=== PATIENT | female | born 1960 | race Caucasian/White ===

== ENCOUNTER → 2018-01-13 14:17 | Outpatient (CLI) | payer OTHER, SELFPAY ==
--- NOTE | 2018-01-13 14:19 | RAD_ITS ---
STUDY: X-RAY - RIGHT KNEE REASON FOR EXAM: Female, 57 years old. Arthritis TECHNIQUE: 3 view(s) of the knee. COMPARISON: None. FINDINGS: Normal visualized distal femur. Normal visualized proximal tibia and fibula. Normal proximal tibiofibular articulation. Normal medial femorotibial compartment. Normal lateral femorotibial compartment. Normal patellofemoral articulation. The soft tissue structures are unremarkable. RAD/Knee 3 Views IMPRESSION: Normal x-ray examination of the knee. Electronically Signed: Efe Hernandez MD at 16:51 EDT , Service support ,
--- NOTE | 2018-01-13 14:30 | RAD_ITS ---
STUDY: X-RAY - LEFT KNEE REASON FOR EXAM: Female, 57 years old. Arthritis TECHNIQUE: 3 view(s) of the knee. COMPARISON: None. FINDINGS: Normal visualized distal femur. Normal visualized proximal tibia and fibula. Normal proximal tibiofibular articulation. There is mild degenerative arthrosis of the medial femorotibial compartment. Normal lateral femorotibial compartment. Normal patellofemoral articulation. The soft tissue structures are unremarkable. RAD/Knee 3 Views IMPRESSION: There is mild degenerative arthrosis of the medial femorotibial compartment. Electronically Signed: Efe Hernandez MD at 16:51 EDT , Service support ,
== END ==
PROVIDERS: Family Provider Family Medicine; PCP Family Medicine; Visit Provider Family Medicine
DX: M25.561 Pain in right knee (principal); M25.562 Pain in left knee
CPT/HCPCS: 73562

== ENCOUNTER → 2018-01-21 09:07 | Outpatient (CLI) | payer OTHER, SELFPAY ==
--- NOTE | 2018-01-21 09:08 | RAD_ITS ---
STUDY: X-RAY - LEFT KNEE REASON FOR EXAM: Knee pain. TECHNIQUE: A single view of the knee. COMPARISON: Radiographs 01/13/2018. FINDINGS: There is congruence of the patellofemoral articulation without joint space narrowing on this sunrise view. Electronically Signed: Wagner Perkins MD at 16:15 EDT Tel , Service support , RAD/Knee 1 or 2 Views
--- NOTE | 2018-01-21 09:08 | RAD_ITS ---
STUDY: X-RAY - LEFT KNEE REASON FOR EXAM: Knee pain. TECHNIQUE: A single view of the knee. COMPARISON: Radiographs 01/13/2018. FINDINGS: There is congruence of the patellofemoral articulation without joint space narrowing on this sunrise view. Electronically Signed: Wagner Perkins MD at 16:15 EDT Tel , Service support , RAD/Knee 1 or 2 Views
== END ==
PROVIDERS: Family Provider Family Medicine; PCP Family Medicine; Visit Provider Orthopaedic Surgery
DX: M25.561 Pain in right knee (principal); M25.562 Pain in left knee
CPT/HCPCS: 73560

== ENCOUNTER 2018-03-17 08:13 | Outpatient (RCR) | payer OTHER, SELFPAY | END 2018-04-03 23:59 | LOC: NS 08:13 | PROVIDERS: Family Provider Family Medicine; PCP Family Medicine; Visit Provider Orthopaedic Surgery | DX: E66.01 Morbid (severe) obesity due to excess calories (principal); Z71.3 Dietary counseling and surveillance | CPT/HCPCS: 97802 ==

== ENCOUNTER 2018-05-28 08:25 | Outpatient (RCR) | payer OTHER, SELFPAY | END 2018-06-04 23:59 | LOC: NS 08:25 | PROVIDERS: Family Provider Family Medicine; PCP Family Medicine; Visit Provider Orthopaedic Surgery | DX: E66.01 Morbid (severe) obesity due to excess calories (principal); Z71.3 Dietary counseling and surveillance ==

== ENCOUNTER 2018-06-10 11:59 | Outpatient (RCR) | payer OTHER, SELFPAY | END 2018-07-04 23:59 | LOC: NS 11:59 | PROVIDERS: Family Provider Family Medicine; PCP Family Medicine; Visit Provider Orthopaedic Surgery | DX: E66.01 Morbid (severe) obesity due to excess calories (principal); Z71.3 Dietary counseling and surveillance ==

== ENCOUNTER 2018-07-13 08:24 | Outpatient (RCR) | payer OTHER, SELFPAY | END 2018-08-04 23:59 | LOC: NS 08:24 | PROVIDERS: Family Provider Family Medicine; PCP Family Medicine; Visit Provider Orthopaedic Surgery | DX: E66.01 Morbid (severe) obesity due to excess calories (principal); Z71.3 Dietary counseling and surveillance | CPT/HCPCS: 97803 ==

== ENCOUNTER 2018-10-13 15:39 | Outpatient (RCR) | payer OTHER, SELFPAY | END 2018-10-13 23:59 | disposition home or self-care (01) | LOC: NS 15:39 | PROVIDERS: Family Provider Family Medicine; PCP Family Medicine; Visit Provider Orthopaedic Surgery | DX: E66.01 Morbid (severe) obesity due to excess calories (principal); Z71.3 Dietary counseling and surveillance | CPT/HCPCS: 97803 ==

== ENCOUNTER → 2019-01-03 09:04 | Outpatient (CLI) | payer OTHER, SELFPAY ==
[2018-12-23 09:49] VITALS: BMI 45.3
[2019-01-03 10:00] LABS: Absolute Lymphocyte Count 2.14 X10^3/ul (0.83-4.51); Absolute Neutrophil Count 3.7 X10^3/uL (2.0-7.7); Basophil# 0.03 X10^3/uL; Basophil% 0.4 % (0-1); Eosinophil# 0.24 X10^3/uL; Eosinophils% 3.5 % (0-5); Hematocrit 44.1 % (37-47); Hemoglobin 14.2 g/dl (12.0-15.0); Lymphocyte # 2.14 X10^3/ul (4.0); Lymphocyte % 30.8 % (19-41); Mean Corp Hgb Conc 32.2 g/gl (32-36); Mean Corpuscular Hgb 28.6 pg (27.0-32.0); Mean Corpuscular Volume 88.9 fL (81-99); Mean Platelet Vol. 10.8 fl (6.2-12.0); Monocyte# 0.87 X10^3/uL; Monocyte% 12.5 % (0-10); Neutrophil # 3.66 X10^3/uL (2.7-7.7); Neutrophil % 52.7 % (47-70); Platelet Count 218 K/mm3 (150-450); RBC Distribution Width CV 13.7 % (11.6-14.6); RBC Distribution Width SD 44.3 fl (35.1-43.9); Red Blood Count 4.96 M/mm3 (4.2-5.4)
[2019-01-03 10:04] LABS: POSITIVE COUNT NO; POSITIVE DIFFERENTIAL NO; POSITIVE MORPHOLOGY NO
[2019-01-03 10:43] LABS: T3 Total - Triiodothyronine 1.54 ng/mL (0.6-1.81)
[2019-01-03 10:47] LABS: ALB/GLOB Ratio 1.1 RATIO (0.9-2.4); AST(SGOT) 45 U/L (15-37); Alanine Aminotransfer ALT/SGPT 71 U/L (13-56); Albumin, Serum 3.6 g/dL (3.2-5.0); Alkaline Phosphatase 76 U/L (45-117); Anion Gap 9 (5-15); BUN 15 mg/dL (7-18); Calcium,Total 8.6 mg/dL (8.5-10.1); Chloride 108 mmol/L (98-107); Creatinine, Serum 1.07 mg/dL (0.55-1.02); EST Glomerular Filtration Rate 56 mL/min (>60); Est Glom Filt Rate - Afr Amer 67 mL/min (>60); Ferritin 248 ng/mL (8-252); Globulin 3.4 g/dL (2.2-4.2); Glucose 93 mg/dL (74-106); Potassium 4.1 mmol/L (3.5-5.1); Sodium Level 141 mmol/L (136-145)
== END ==
PROVIDERS: Family Provider Family Medicine; PCP Family Medicine; Referring Provider Physician Assistant; Visit Provider Physician Assistant
DX: L65.0 Telogen effluvium (principal); D48.5 Neoplasm of uncertain behavior of skin
CPT/HCPCS: 36415; 80053; 82728; 84480; 85025

== ENCOUNTER 2019-04-26 09:00 | Emergency (ER) | payer OTHER, SELFPAY ==
[2018-12-23 09:49] VITALS: BMI 45.3
[2019-04-26 09:01] VITALS: BP 157/86; PULSE 78; RESP 18; TEMP 36.4; O2SAT 98; BMI 40.5
--- NOTE | 2019-04-26 09:21 | CT_ITS ---
STUDY: CT BRAIN WITHOUT CONTRAST REASON FOR EXAM: Female, 58 years old. Headache x3 days RADIATION DOSAGE (If Supplied By Facility): CTDIvol = ( 44.99 ) mGy, DLP = ( 796.11 ) mGycm TECHNIQUE: Transaxial CT imaging of the brain was performed without administration of intravenous contrast material. Individualized dose optimization techniques were used for this CT. COMPARISON: 09/05/2015 FINDINGS: Normal soft tissue structures. Normal calvarium. Normal size ventricles and extra-axial spaces for the patient's age. Normal white matter tracts of the cerebral hemispheres. Normal basal ganglia and thalami. Normal brainstem. Normal cerebellum. There is no intracranial hemorrhage. There are no findings of an acute ischemic infarction. Normal visualized paranasal sinuses. CT/Brain/Head without Contrast IMPRESSION: Normal unenhanced CT scan of the brain. Electronically Signed: Sylvian Nuñez MD at 10:14 EDT , Service support ,
[2019-04-26] MEDS: proCHLORPERazine 10 MG/2 ML Vial IV (09:35)
[2019-04-26] MEDS: 0.9% Normal Saline 1,000 ML 999 ML IV (09:35)
[2019-04-26] MEDS: DiphenhydrAMINE 50 MG/ML Syringe 25 MG IV (09:35)
--- NOTE | 2019-04-26 10:00 | ED.DCSUM_ITS ---
- ER Visit Summary Date of Service: 04/26/19 Chief Complaint: Headache History of Present Illness: The patient is a 58 F who is had a headache for couple of weeks. She describes as throbbing in the right occipital area. It does not radiate. She has had associated nausea without vomiting. No photophobia or blurry vision. No direct trauma or falls. She has tried Aleve, Tylenol and aspirin without any relief. She states that she does have frequent headaches but has never been diagnosed with migraines. Denies fevers. Physical Examination: Vital signs reviewed. HEENT exam unremarkable. Heart is regular rate and rhythm without murmurs. Lungs are clear to auscultation. Abd omen is soft and nontender. Extremities reveal no edema. Skin exam normal. Neurologic exam normal. Test Results: CAT scan of the head normal Emergency Department Course and Treatment: Patient was given saline, Compazine and Benadryl. She feels better after these medications. CAT scan of the head is normal. She has a follow-up on Thursday with her PCP. I will give her analgesia at home Treatment Plan: [] Disposition: Discharge Impression: Headache This note was generated with [employer] dictation software. It may contain incorrect words, spelling, and punctuation that were not noted in review of the chart prior to signing ED Disposition - Plan for ED Patient: Referrals: Kenyon Thompson DO [Primary Care Provider] -
--- NOTE | 2019-04-26 10:20 | ED.DEP ---
ED Disposition - Plan for ED Patient: Disposition: Home or Assisted Living Instructions: HEADACHE, Unspecified Prescriptions: Diflunisal [Dolobid] 500 mg PO TID #20 tab Prescription Printed Referrals: Kenyon Thompson DO [Primary Care Provider] -
[2019-04-26 10:36] VITALS: BP 152/84; PULSE 71; RESP 16; O2SAT 97
== END 2019-04-26 10:37 | disposition home or self-care (01) ==
PROVIDERS: Emergency Provider Emergency Medicine; Family Provider Family Medicine; PCP Family Medicine
DX: R51 Headache (principal); R11.0 Nausea; I51.81 Takotsubo syndrome
CPT/HCPCS: 70450; 96361; 96374; 96375; 99284; J7030; A4216

== ENCOUNTER 2019-04-27 22:09 | Emergency (ER) | payer OTHER, SELFPAY ==
[2019-04-26 09:01] VITALS: BMI 40.5
[2019-04-27 22:10] VITALS: BP 162/82; PULSE 83; RESP 17; TEMP 36; O2SAT 96; BMI 41.1
--- NOTE | 2019-04-27 22:25 | ED.VISSUMM ---
- ER Visit Summary Date of Service: 04/27/19 Chief Complaint: Headache History of Present Illness: The patient is a 58 F who continues with a headache. She was seen here yesterday and given Compazine and Benadryl and felt better. She had a negative CT scan. She comes in today also because she has pain in her left antecubital area from an IV that was placed yesterday. She did not take the medicine that was given to her at home because she was concerned about the side effects. She states she still had the aftereffects of the Compazine and Benadryl when she woke up this morning. Denies any fevers. No changes in her headache. Physical Examination: Vital signs reviewed. HEENT exam unremarkable. Left arm exam reveals a hematoma on the left AC area. No fluctuance or signs of cellulitis. Does not appear to be superficial thrombophlebitis. Her neurologic exam is normal. Test Results: [] Emergency Department Course and Treatment: The patient's IV yesterday was initially placed in the artery and when it was removed this happened. I feel this is likely just a hematoma from having an arterial stick yesterday. She was given Toradol for her headache. She feels better. Her repeat blood pressure is 138/85. She will take the medicine that I gave her yesterday at home. She will alternate ice and heat on her hematoma and will call her doctor for follow-up Treatment Plan: [] Disposition: Discharge Impression: Headache, left arm hematoma from IV stick This note was generated with [employer] dictation software. It may contain incorrect words, spelling, and punctuation that were not noted in review of the chart prior to signing ED Disposition - Plan for ED Patient: Referrals: Kenyon Thompson DO [Primary Care Provider] -
[2019-04-27] MEDS: Ketorolac 60 MG/2 ML Vial IM (22:31)
--- NOTE | 2019-04-27 22:54 | ED.DEP ---
ED Disposition - Plan for ED Patient: Disposition: Home or Assisted Living Instructions: Hematoma, HEADACHE, Unspecified Referrals: Kenyon Thompson DO [Primary Care Provider] -
[2019-04-27 23:01] VITALS: BP 135/80; PULSE 76; O2SAT 100
--- NOTE | 2019-04-27 23:03 | ED.RN ---
PAIN LEVEL DOWN TO a 2 after toradol.
== END 2019-04-27 23:03 | disposition home or self-care (01) ==
PROVIDERS: Emergency Provider Emergency Medicine; Family Provider Family Medicine; PCP Family Medicine
DX: R51 Headache (principal); S40.012A Contusion of left shoulder, initial encounter; S40.022A Contusion of left upper arm, initial encounter; X58.XXXA Exposure to other specified factors, initial encounter; Y92.239 Unspecified place in hospital as the place of occurrence of the external cause; Y99.8 Other external cause status
CPT/HCPCS: 96372; 99282

== ENCOUNTER 2019-09-21 23:20 | Observation (INO) | payer OTHER, SELFPAY ==
[2019-08-25 10:45] VITALS: BMI 41.8
[2019-09-21 23:20] VITALS: BP 155/85; PULSE 94; RESP 18; TEMP 36.8; O2SAT 97; BMI 39.1
[2019-09-21 23:31] VITALS: BP 115/80; PULSE 86; RESP 15; O2SAT 95
[2019-09-21 23:34] VITALS: O2SAT 98
--- NOTE | 2019-09-21 23:47 | EKG12_ITS ---
Test Reason : CP Blood Pressure : / mmHG Vent. Rate : 088 BPM Atrial Rate : 088 BPM P-R Int : 156 ms QRS Dur : 074 ms QT Int : 380 ms P-R-T Axes : 034 024 048 degrees QTc Int : 459 ms Normal sinus rhythm Normal ECG Confirmed by CEDRIC ESPINAL, MAXWELL ([id number]), communications editor DEREJE HARRELL ([id number]) on 09/26/2019 11:54:54 AM Referred By: Zach Ahumada Confirmed By:DAVON STEELE MD
--- NOTE | 2019-09-21 23:49 | ED.DCSUM_ITS ---
History of Present Illness Chief Complaint: Chest Pain Informant: Patient Onset: Days Timing: Intermittent Quality: Heaviness, Tightness Location: Substernal Narrative: Patient is a 59-year-old female presenting with worsening chest pain. He stated onset of symptoms like a pressure/tightness. She also has pain between her shoulder blades. The symptoms worsen over the past 3 days. She notes that her dog at 3 AM this morning and she is doing currently stressed from this. Patient states in 2011 when another dog she actually had similar symptoms and developed Takotsubo syndrome. Patient states she has been feeling like she has gas in her stomach and that she needs to burp for the past 2 days thinking it would go away. She also notes that she feels exhausted. When she went to take a shower today she noticed that her hands were very cold and looked blue. The pressure has been more persistent all afternoon into the evening which is why she decided to come to the emergency room. Did not take anything for her discomfort. She is not had any aspirin today. She states that she had a normal cardiac catheterization back in 2011. Patient comments that she did not take her blood pressure medication today. She denies any other complaints at this time. Prior Similar Symptoms: Yes, - - Takotsubo syndrome CVD Risk Factors: Hypertension Past Medical History - Allergies and Home Meds Allergies/Adverse Reactions: Allergies codeine Allergy (Verified 09/21/19 23:34) Itching latex Allergy (Verified 09/21/19 23:34) Rash tramadol Allergy (Verified 09/21/19 23:34) Hives prochlorperazine [From Compazine] Adverse Reaction (Unknown, Verified 09/21/19 23:34) Other hallucinations, paranoia lactose Adverse Reaction (Verified 09/21/19 23:34) Nausea/Vom/Diarrhea Past Medical History: - - HTN, Takotsubo cardiomyopathy Surgical History: cholecystectomy, hysterectomy, - - Carpal tunnel surgery BL, L knee arthroscopic surgery, now recent R ORIF samreen ankle fracture. Lives: Spouse/ Significant Other Smoking Status: Never smoker - Family History Maternal Family History: Family History (Last Reviewed 08/25/19 @ 12:12 by Kenyon Thompson DO) Father Alcoholism Anxiety Depressed CVA (cerebral vascular accident) Lung cancer Mother Heart disease Hypertension Grandmother Alcoholism Sister Liver disease Alcoholism Sister Mental disorder Aunt Breast cancer Family History: Reports: Diabetes, Heart Disease Paternal Family History: Family History (Last Reviewed 08/25/19 @ 12:12 by Kenyon Thompson DO) Father Alcoholism Anxiety Depressed CVA (cerebral vascular accident) Lung cancer Mother Heart disease Hypertension Grandmother Alcoholism Sister Liver disease Alcoholism Sister Mental disorder Aunt Breast cancer Family History: Reports: Diabetes, Heart Disease, Hypertension Review of Systems General: Reports: Malaise. Denies: Chills, Fever, Sweats Eyes: Denies: Visual changes - bilaterally, Diplopia ENT: Denies: Rhinorrhea, Sore throat Cardiovascular: Reports: Chest pain. Denies: Palpitations Respiratory: Denies: Dyspnea, Cough, Dyspnea on exertion Gastrointestinal: Denies: Abdominal pain, Nausea, Vomiting, Diarrhea, Melena, Hematochezia Genitourinary: Denies: Dysuria, Hematuria, Frequency Musculoskeletal: Reports: Back pain. Denies: Extremity Pain Skin: Denies: Rash, Wounds Neurological: Denies: Headache, Weakness, Numbness Physical Exam Vital Signs/Narrative: Vital Signs Temp Pulse Resp BP Pulse Ox 09/21/19 23:34 98 09/21/19 23:31 86 15 115/80 95 09/21/19 23:20 98.2 F 94 18 155/85 H 97 Inital Vital Signs reviewed: Yes General: Well nourished, Well developed, No Acute Distress Head: Normocephalic, Atraumatic Eyes: Perrl, EOMI ENT: Moist mucous membranes, No rhinorrhea Neck: Supple, Nontender Cardiovascular: Regular rate, Regular rhythm, No murmurs. Negative for: Murmur Respiratory: No distress, CTA bilaterally, Chest nontender. Negative for: Rales, Rhonchi Abdomen: Soft, Nontender, Nondistended, Normal bowel sounds Back: Nontender, Normal Inspection Extremities: Nontender, No edema Skin: Normal color, No rash Neurological: Alert, Oriented x3, Cranial nerves II-XII grossly intact, Normal Strength, Normal Sensation Psychological: Normal affect, Normal Mood, Tearful Diagnostic/Tx/Re-eval Chest X-Ray - ED: 2 View, Read by ED Physician, Read by Radiologist, No Acute Disease CTA PE Study: No Evidence of PE, No Evidence of Dissection Clinical Impression(s) from Imaging Studies Chest X-Ray 09/21/19 23:53 IMPRESSION: No evidence for acute cardiopulmonary pathology. Electronically Signed: Wayne Willams MD at 0:08 EST , Service support , Chest CTA 09/22/19 00:24 IMPRESSION: Normal CTA chest examination, without a demonstrated pulmonary embolism, aortic aneurysm, or aortic dissection. Mild atherosclerosis. No evidence for acute cardiopulmonary pathology. 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 No other evidence for stenosis of the aorta or other abdominal arteries. No evidence for aneurysm or dissection. Previous cholecystectomy. No evidence for acute pathology in the abdomen or visualized upper pelvis. Electronically Signed: Wayne Willams MD at 1:26 EST , Service support , Laboratory Data 09/21/19 09/21/19 23:37 23:37 WBC 5.7 RBC 4.74 Hgb 13.8 Hct 42.8 MCV 90.3 MCH 29.1 MCHC 32.2 RDW Std Deviation 43.8 RDW Coeff of Michel 13.2 Plt Count 158 MPV 10.9 Immature Gran % (Auto) 0.200 Neut % (Auto) 53.8 Lymph % (Auto) 31.5 Sampson % (Auto) 11.8 H Eos % (Auto) 2.4 Baso % (Auto) 0.3 Absolute Neuts (auto) 3.1 Absolute Lymphs (auto) 1.81 Nucleated RBC % 0 Sodium 142 Potassium 3.8 Chloride 109 H Carbon Dioxide 27.0 Anion Gap 6 BUN 13 Creatinine 0.96 Estim Creat Clear Calc 57.61 Est GFR (MDRD) Af Amer 76 Est GFR (MDRD) Non-Af 63 BUN/Creatinine Ratio 13.5 Glucose 90 Calcium 8.7 Total Bilirubin 0.70 AST 105 H ALT 105 H Alkaline Phosphatase 81 Troponin I < 0.015 Total Protein 7.0 Albumin 3.7 Globulin 3.3 Albumin/Globulin Ratio 1.1 Lipase 195 - Rhythm Strip Rhythm Strip: Sinus Rhythm Rate: 88 Ectopy: None - EKG Initial EKG Interpretation: Sinus Rhythm, - - Interpreted by emergency medicine physician. Normal sinus rhythm at a rate of 88. Normal intervals and normal axis. Normal ST segments Treatment: Aspirin, NTG SL Repeat Eval: Pain Free LEONCIO Risk: Age >/= 65 Score: 1 - Medical Decision Making Patient evaluated for chest pain and back pain. She appears nontoxic and in no acute distress. EKG is largely normal. Chest x-ray does not show any acute process. CBC, CMP and troponin are grossly normal. She does have a mild transaminitis but this appears to be at her baseline. CTA of the chest abdomen pelvis is obtained because of the characteristics of the pain going into her back to rule out dissection. This does not show any acute PE or dissection however does incidentally show stenosis of the celiac artery concerning for median arcuate ligament syndrome. I do not think this is why she is having chest pain and this is likely more of an incidental finding. Patient does report that she has abdominal pain with eating that been going on for approximately 9 years. She does not have any abdominal pain at this time. Patient will be admitted for further cardiac evaluation she does have a history of takotsubo and recent emotional stressor of her dog dying. Hospitalist did request that I discussed the celiac artery findings with surgery on-call. Discussed with Dr. Deutsch who said this is not emergent and the patient does not need to be evaluated for this while she is in the hospital. He also commented that we do not surgically repair of this at this hospital. Patient is admitted to PCU in stable condition. She did have improvement of her chest pain with nitroglycerin while in the emergency room. She was given aspirin while in the emergency room. ED Disposition - Plan for ED Patient: Disposition: Acute Care [facility] Diagnosis: Chest pain, Celiac artery stenosis
--- NOTE | 2019-09-21 23:53 | RAD_ITS ---
STUDY: X-RAY CHEST REASON FOR EXAM: Female, 59 years old. Broken heart syndrome. TECHNIQUE: Frontal and lateral views of the chest. COMPARISON: 09/17/2015. FINDINGS: Lungs are mildly underexpanded. There is no demonstrated pulmonary infiltrate. There is no demonstrated pleural abnormality. Normal size heart. Normal mediastinum and sami. Normal visualized pulmonary arteries. Normal visualized aortic arch and descending thoracic aorta. There are mild multilevel degenerative changes of the visualized thoracic spine. Normal visualized ribs, clavicles, and shoulders. There is no demonstrated abnormality of the visualized soft tissue structures of the upper abdomen. RAD/Chest PA and Lateral IMPRESSION: No evidence for acute cardiopulmonary pathology. Electronically Signed: Wayne Willams MD at 0:08 EST , Service support ,
[2019-09-21 23:55] LABS: Absolute Lymphocyte Count 1.81 X10^3/uL (0.83-4.51); Absolute Neutrophil Count 3.1 X10^3/uL (2.0-7.7); Basophil# 0.02 X10^3/uL; Basophil% 0.3 % (0-1); Eosinophil# 0.14 X10^3/uL; Eosinophils% 2.4 % (0-5); Hematocrit 42.8 % (37-47); Hemoglobin 13.8 g/dL (12.0-15.0); Lymphocyte # 1.81 X10^3/ul (4.0); Lymphocyte % 31.5 % (19-41); Mean Corp Hgb Conc 32.2 g/dL (32-36); Mean Corpuscular Hgb 29.1 pg (27.0-32.0); Mean Corpuscular Volume 90.3 fL (81-99); Mean Platelet Vol. 10.9 fl (6.2-12.0); Monocyte# 0.68 X10^3/uL; Monocyte% 11.8 % (0-10); NRBC Flagged by Analyzer 0 % (0-5); Neutrophil # 3.08 X10^3/uL (2.7-7.7); Neutrophil % 53.8 % (47-70); Platelet Count 158 K/mm3 (150-450); RBC Distribution Width CV 13.2 % (11.6-14.6); RBC Distribution Width SD 43.8 fl (35.1-43.9); Red Blood Count 4.74 M/mm3 (4.2-5.4); White Blood Count 5.7 K/mm3 (4.4-11.0)
[2019-09-21] MEDS: Aspirin 81 MG TAB.CHEW 324 MG PO (23:57)
[2019-09-21] MEDS: 0.9% Normal Saline 1,000 ML 1000 ML IV (23:57)
[2019-09-22] VITALS (11 sets, daily range): BP systolic 114–146; BP diastolic 55–84; PULSE 61–86; RESP 16–22; TEMP 36.7–37.2; O2SAT 94–99; BMI 42.7
[2019-09-22 00:09] LABS: ALB/GLOB Ratio 1.1 RATIO (0.9-2.4); AST(SGOT) 105 U/L (15-37); Alanine Aminotransfer ALT/SGPT 105 U/L (13-56); Albumin, Serum 3.7 g/dL (3.2-5.0); Alkaline Phosphatase 81 U/L (45-117); Anion Gap 6 (5-15); BUN 13 mg/dL (7-18); BUN/Creat Ratio 13.5 RATIO (10-20); Calcium,Total 8.7 mg/dL (8.5-10.1); Chloride 109 mmol/L (98-107); Creatinine, Serum 0.96 mg/dL (0.55-1.02); EST Glomerular Filtration Rate 63 mL/min (>60); Est Glom Filt Rate - Afr Amer 76 mL/min (>60); Estimated Creatinine Clearance 57.61 ml/min; Globulin 3.3 g/dL (2.2-4.2); Glucose 90 mg/dL (74-106); Lipase 195 U/L (73-393); Potassium 3.8 mmol/L (3.5-5.1); Sodium Level 142 mmol/L (136-145)
[2019-09-22] MEDS: Nitroglycerin SL (ED/IMG/CATH) 0.4 MG TABLET SUBLINGUAL (00:20)
--- NOTE | 2019-09-22 00:24 | CT_ITS ---
STUDY: CTA CHEST REASON FOR EXAM: Female, 59 years old. Chest and back pain. RADIATION DOSAGE (If Supplied By Facility): CTDIvol = ( 15.99 ) mGy, DLP = ( 1301.37 ) mGycm TECHNIQUE: The examination was performed with the intravenous administration of Isovue 370 100ml. Post-processing of the angiographic images was performed, with multiplanar reformation and 3D reconstruction. Individualized dose optimization techniques were used for this CT. COMPARISON: Chest x-ray 09/21/2019. FINDINGS: Normal enhancement of the main pulmonary artery and right and left pulmonary arteries. Normal enhancement of the bilateral peripheral pulmonary arteries. There is no demonstrated pulmonary embolism. There is mild atherosclerotic calcification of the thoracic aorta and visualized great vessels. The left common carotid artery originates from the right brachiocephalic artery, consistent with bovine configuration of the great vessels, a developmental variant. There is no demonstrated aortic dissection. Normal heart and pericardium. There are visualized mediastinal lymph nodes, which are within normal size limits, and with normal morphology. Normal hilar regions. Normal visualized trachea and bronchi. The lungs are underexpanded. There is mild atelectasis in the posterior lungs and lung bases. Normal pulmonary parenchyma. Normal pleura. Normal chest wall structures. There are multilevel degenerative changes of thoracic spine. Upper abdominal findings will be discussed in CTA Abdomen and Pelvis report. CT/CTA Chest W/WO Contrast IMPRESSION: Normal CTA chest examination, without a demonstrated pulmonary embolism, aortic aneurysm, or aortic dissection. Mild atherosclerosis. No evidence for acute cardiopulmonary pathology. Electronically Signed: Wayne Willams MD at 1:15 EST , Service support ,
--- NOTE | 2019-09-22 00:25 | CT_ITS ---
STUDY: CTA OF THE ABDOMINAL AORTA AND ABDOMINAL ARTERIES REASON FOR EXAM: Female, 59 years old. Chest and back pain. Prior cholecystectomy, abdominal hysterectomy with unilateral oophorectomy, and bladder suspension. RADIATION DOSAGE (If Supplied By Facility): CTDIvol = ( 15.99 ) mGy, DLP = ( 1301.37 ) mGycm TECHNIQUE: Axial CT angiography multi-detector data acquisition was obtained from the lower lung hobson to the S4-5 level following intravenous administration of 100 ml of Isovue 370 contrast. Axial images and MIP images were reconstructed from the axial data set. Post-processing of the angiographic images was performed, with multiplanar reformation, but without 3D reconstruction. Individualized dose optimization techniques were used for this CT. TECHNICAL QUALITY: Good COMPARISON: CTA chest done today. Descriptors of Narrowing: None (0%) Mild (< 50%) Moderate (50-70%) Severe (70-90%) Subtotal/Total Occlusion (90-100%) Non-Evaluable (technically non-diagnostic FINDINGS: Abdominal aorta: Mild atherosclerotic calcification with no demonstrated narrowing. No evidence for aneurysm or dissection. Celiac artery: Severe narrowing of the proximal segment due to compression by the median arcuate ligament of the diaphragm. Superior mesenteric artery: No demonstrated narrowing. Inferior mesenteric artery: No demonstrated narrowing. Right renal artery(arteries): 2 arteries No demonstrated narrowing. Left renal artery(arteries): 2 arteries No demonstrated narrowing. Right common iliac artery: No demonstrated narrowing. Visualized Right external iliac artery: No demonstrated narrowing. Right internal iliac artery: No demonstrated narrowing. Left common iliac artery: No demonstrated narrowing. Visualized Left external iliac artery: No demonstrated narrowing. Left internal iliac artery: No demonstrated narrowing. ABDOMINAL FINDINGS: There is a tiny cyst in the right lobe of the liver. There are surgical clips in the gallbladder fossa consistent with a prior cholecystectomy. Normal spleen. Normal pancreas. Normal bilateral adrenal glands. There are small right renal cyst. Otherwise normal right kidney. Normal left kidney. Normal visualized stomach. Normal visualized small intestine. Normal visualized colon. The appendix is visualized on axial images 192-199 and it appears normal.. Normal inferior vena cava. Normal retroperitoneum. Normal abdominal wall. There are multilevel degenerative changes of the visualized lumbar spine. 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 No other evidence for stenosis of the aorta or other abdominal arteries. No evidence for aneurysm or dissection. Previous cholecystectomy. No evidence for acute pathology in the abdomen or visualized upper pelvis. Electronically Signed: Wayne Willams MD at 1:26 EST , Service support ,
--- NOTE | 2019-09-22 01:40 | HP.PCM_ITS ---
Problem List (1) Chest pain Status: Acute (2) Chronic headaches Status: Chronic Qualifiers: Headache type: tension-type Intractability: not intractable Qualified Code(s): G44.229 - Chronic tension-type headache, not intractable (3) Urinary incontinence in female Status: Chronic (4) GERD (gastroesophageal reflux disease) Status: Chronic (5) Kidney stones Status: Chronic (6) IBS (irritable bowel syndrome) Status: Chronic Qualifiers: Irritable bowel syndrome type: with diarrhea Qualified Code(s): K58.0 - Irritable bowel syndrome with diarrhea (7) Chronic headaches Status: Chronic (8) Gastrointestinal complaints Status: Chronic (9) Chronic bronchitis Status: Chronic (10) Frequent UTI Status: Chronic (11) Back problem Status: Chronic (12) Seasonal allergies Status: Chronic (13) Migraines Status: Chronic Qualifiers: Migraine type: unspecified Status migrainosus presence: without status migrainosus Intractability: not intractable Qualified Code(s): G43.909 - Migraine, unspecified, not intractable, without status migrainosus (14) Morbid obesity with BMI of 40.0-44.9, adult Status: Chronic (15) Anxiety and depression Status: Chronic Comment: Pt. has a lot of emotional problems, family problems especially with a autistic child. (16) Takotsubo syndrome Status: Chronic History of Present Illness Date of Admission: 09/22/19 Chief Complaint: chest pain The patient is a 59 year old F with a significant history of Takotsubo cardiomyopathy who presented to emergency department with chest pain that started about 2 days prior to presentation. Her chest pain is at her center of her chest and it radiates to her back. She rated her chest pain as a 6-7 on a scale of 1-10. It felt like a pressure and burning; into her back was sharp pain. Her chest pain started about 2 days prior to presentation; about the same time that her dog was seriously sick. She reported that her dog had a tumor on its heart; and a mass in its stomach. Her dog was diagnosed with hemangiocarcinoma. Her emotions kept going up and down because at some point she was hearing that her dog would get better and at some point she was hearing that her dog would not get better. When her dog finally the dog and was cremated her chest pain became severe.. She felt like she needed to burp but she could not burp. She denies any ameliorating factors. At the emergency department her chest pain improved with nitroglycerin. However when she was going in for a CAT scan her chest pain came back on because of stress. Her current episode of chest pain is reminiscent of a chest pain that she developed in 2011 when her dog .. At that time patient was diagnosed with Takotsubo cardiomyopathy. Reportedly at that time she had a stress test and cardiac cath. Also she reports another episode of same symptoms in 2014. Further, she reports episodes of having chest pain from meeting an in-law that she does not get along with. Past Medical History Past Medical History (Chronic Problems): Chronic Problems (Last Reviewed 09/22/19 @ 04:44 by Zach Ahumada MD) Chronic headaches (Chronic) Urinary incontinence in female (Chronic) GERD (gastroesophageal reflux disease) (Chronic) Kidney stones (Chronic) IBS (irritable bowel syndrome) (Chronic) Chronic headaches (Chronic) Gastrointestinal complaints (Chronic) Chronic bronchitis (Chronic) Frequent UTI (Chronic) Back problem (Chronic) Seasonal allergies (Chronic) Migraines (Chronic) Morbid obesity with BMI of 40.0-44.9, adult (Chronic) Anxiety and depression (Chronic) Pt. has a lot of emotional problems, family problems especially with a autistic child. Takotsubo syndrome (Chronic) Medical History: Medical History (Last Reviewed 09/22/19 @ 04:57 by Zach Ahumada MD) GERD (gastroesophageal reflux disease) (Chronic) K21.9 Kidney stones (Chronic) N20.0 IBS (irritable bowel syndrome) (Chronic) K58.9 Hives (Inactive) L50.9 Chronic headaches (Chronic) R51 Gastrointestinal complaints (Chronic) R19.8 Chronic bronchitis (Chronic) J42 Encounter for blood transfusion (Inactive) Z51.89 Frequent UTI (Chronic) N39.0 Back problem (Chronic) M53.9 Seasonal allergies (Chronic) J30.2 Allergies codeine Allergy (Verified 09/21/19 23:34) Itching latex Allergy (Verified 09/21/19 23:34) Rash tramadol Allergy (Verified 09/21/19 23:34) Hives prochlorperazine [From Compazine] Adverse Reaction (Unknown, Verified 09/21/19 23:34) Other hallucinations, paranoia lactose Adverse Reaction (Verified 09/21/19 23:34) Nausea/Vom/Diarrhea Home Medications: Ambulatory Orders Medication Instructions Recorded Multivitamin/Iron/Folic Acid 1 ea PO DAILY 04/26/19 [Centrum Adults Tablet] ondansetron 4 mg disintegrating 4 mg PO Q8H PRN #30 tab 06/20/19 tablet amlodipine 5 mg tablet 5 mg PO DAILY #90 tab 08/25/19 oxybutynin chloride 15 mg 15 mg PO DAILY #30 tab 09/12/19 tablet,extended release 24 hr Surgical History: Surgical History (Last Reviewed 09/22/19 @ 04:44 by Zach Ahumada MD) History of cholecystectomy Z90.49 History of extraction of renal calculus Z98.890, Z87.448 History of fracture of right ankle Z87.81 History of hysterectomy Z90.710 History of torn meniscus of left knee Z87.828 Surgical History: cholecystectomy, hysterectomy, - - Carpal tunnel surgery BL, L knee arthroscopic surgery, now recent R ORIF samreen ankle fracture. Psychiatric History: Anxiety, Depression COMMISSIONING EDITOR History: No pertinent COMMISSIONING EDITOR history Lives: Spouse/ Significant Other Smoking Status: Never smoker Tobacco Use: Non-smoker - *Family History Maternal Family History: Family History (Last Reviewed 09/22/19 @ 04:57 by Zach Ahumada MD) Father Alcoholism Anxiety Depressed CVA (cerebral vascular accident) Lung cancer Mother Heart disease Hypertension Grandmother Alcoholism Sister Liver disease Alcoholism Sister Mental disorder Aunt Breast cancer History Items: Diabetes, Heart Disease Paternal Family History: Family History (Last Reviewed 09/22/19 @ 04:57 by Zach Ahumada MD) Father Alcoholism Anxiety Depressed CVA (cerebral vascular accident) Lung cancer Mother Heart disease Hypertension Grandmother Alcoholism Sister Liver disease Alcoholism Sister Mental disorder Aunt Breast cancer History Items: Diabetes, Heart Disease, Hypertension Review of Systems Constitutional: Denies: Chills, Fever, Weight Change HEENT: Denies: Head Aches, Sinus Congestion, Sinus Drainage Cardiovascular: Reports: Chest Pain, Chest Pressure. Denies: Palpitations Respiratory: Denies: Cough, Shortness of breath at rest, Sputum production Gastrointestinal: Reports: Nausea. Denies: Abdominal Pain, Vomiting Genitourinary: Denies: Dysuria Musculoskeletal: Reports: Back Pain. Denies: Joint Pain, Joint Tenderness Skin: Reports: - - Erythema under left breast. Denies: Wounds Neurological: Denies: Numbness, Tingling, Focal weakness Psychiatric: Reports: Anxiety, Depression. Denies: Homicidal Ideations, Suicidal Ideations Hematologic/ Lymphatic: Denies: Easy Bruising, Easy Bleeding VTE Information - Inpt Only VTE Present on Admission: No VTE Mechan Device Prophylaxis: None VTE Pharm Prophylaxis ordered?: Yes Patient Problems: Active and Suspected Problems (Last Reviewed 09/22/19 @ 04:44 by Zach Ahumada MD) Chest pain (Acute) - Physical Exam Vitals/I&O's: Vital Signs Temp Pulse Resp BP Pulse Ox 98.2 F 74 20 H 121/60 H 99 09/21/19 23:20 09/22/19 00:29 09/22/19 00:29 09/22/19 00:29 09/22/19 00:29 Oxygen Flow Rate (L/min) 2 Oxygen Delivery Method Nasal Cannula Weight: 110 kg Body Mass Index (BMI) 39.1 General: Alert, Oriented x3, Cooperative, - - Morbidly obese HEENT: Atraumatic, PERRLA, EOMI, Normocephalic Neck: Supple, No JVD, Negative Carotid Bruits Lungs: Clear to auscultation, Normal air movement Cardiovascular: Regular rate, No murmurs Abdomen: Bowel Sounds Present, Soft, Non Tender Extremities: No edema, Capillary Refill Less than 3 Seconds Skin: - - Erythema under left breast Musculoskeletal: No Tenderness to Palpation of Joints or Extremities Neurological: Cranial nerves II-XII grossly intact Psych/Mental Status: Anxious Laboratory Results 09/21/19 23:37: WBC 5.7, RBC 4.74, Hgb 13.8, Hct 42.8, MCV 90.3, MCH 29.1, MCHC 32.2, RDW Std Deviation 43.8, RDW Coeff of Michel 13.2, Plt Count 158, MPV 10.9, Immature Gran % (Auto) 0.200, Neut % (Auto) 53.8, Lymph % (Auto) 31.5, [place] % (Auto) 11.8 H, Eos % (Auto) 2.4, Baso % (Auto) 0.3, Absolute Neuts (auto) 3.1, Absolute Lymphs (auto) 1.81, Nucleated RBC % 0 09/21/19 23:37: Sodium 142, Potassium 3.8, Chloride 109 H, Carbon Dioxide 27.0, Anion Gap 6, BUN 13, Creatinine 0.96, Estim Creat Clear Calc 57.61, Est GFR (MDRD) Af Amer 76, Est GFR (MDRD) Non-Af 63, BUN/Creatinine Ratio 13.5, Glucose 90, Calcium 8.7, Total Bilirubin 0.70, AST 105 H, ALT 105 H, Alkaline Phosphatase 81, Troponin I < 0.015, Total Protein 7.0, Albumin 3.7, Globulin 3.3, Albumin/Globulin Ratio 1.1, Lipase 195 Current Medications Nitroglycerin (Nitrostat) 0.4 mg SUBLINGUAL Q5M PRN PRN Reason: Chest pain Last Admin: 09/22/19 00:20 Dose: 0.4 mg Documented by: Assessment/Plan All Active Problems (Last Reviewed 09/22/19 @ 04:44 by Zach Ahumada MD) Chest pain (Acute) Ankle fracture, bimalleolar, closed (Resolved) The patient is a 59 year old F with a significant history of Takotsubo cardiomyopathy who presented to emergency department with chest pain that she associates with a dog that felt ill and reminiscent of previous episode of Takotsubo cardiomyopathy. Chest pain This could be another occurrence of a Takotsubo cardiomyopathy. Place on a monitored bed; PCU status. CXR independently reviewed confirms no acute cardiopulmonary process. Chest CTA was unremarkable EKG independently reviewed confirms SR ASA 81 mg p.o. daily Morphine and nitroglycerin as needed for pain We will check lipid panel. Serial cardiac enzymes Stat EKG as needed for chest pain Dobutamine stress test in the AM if the cardiac enzymes are negative. Echocardiogram DVT prophylaxis ordered. Median arcuate Ligament Syndrome Per CT imaging. Emergency department doctor discussed with General Surgeon and was advised that patient can follow up outpatient on discharge. Elevated enzymes. Enzymes on presentation was elevated. AST was 105. ALT was 105. 01/03/2019 AST was 45. On 01/03/2019 ALT was 71 Different diagnoses include fatty liver. Check ultrasound of liver. Get acute hepatitis panel. Intertrigo Nystatin powder to under breasts. DVT Prophylaxis Subcutaneous Lovenox Code Visit OBSV E&M: 73014 Initial observation care L3
--- NOTE | 2019-09-22 02:56 | EKG12_ITS ---
Test Reason : CP ADMIT Blood Pressure : / mmHG Vent. Rate : 067 BPM Atrial Rate : 067 BPM P-R Int : 160 ms QRS Dur : 076 ms QT Int : 444 ms P-R-T Axes : 052 026 048 degrees QTc Int : 469 ms Normal sinus rhythm Normal ECG When compared with ECG of 21-SEP-2019 23:28, MANUAL COMPARISON REQUIRED, DATA IS UNCONFIRMED Confirmed by CEDRIC ESPINAL, MAXWELL ([id number]), senior editor AMANUEL MOORE ([id number]) on 09/26/2019 12:51:48 PM Referred By: Zach Ahumada Confirmed By:DAVON STEELE MD
--- NOTE | 2019-09-22 02:56 | ECHOD_ITS ---
Reason For Study: CHEST PAIN Procedure This was a 2D Doppler, Color Flow transthoracic echocardiogram. The study was technically difficult. Exam performed portable in ICU/CCU. Left Ventricle Normal LV size. Concentric left ventricular hypertrophy. The estimated ejection fraction is 65 %. No evidence for diastolic dysfunction. No regional wall motion abnormalities noted. Right Ventricle Normal RV size. Normal systolic function. Atria Normal left atrium. Normal right atrium. No doppler evidence for ASD. Mitral Valve There is no mitral valve stenosis. No mitral valve insufficiency. Tricuspid Valve There is no tricuspid stenosis. Trivial tricuspid valve insufficiency. Pulmonary artery systolic pressure is 35 mmHg. Aortic Valve Trisinus/trileaflet aortic valve. There is no aortic stenosis. No aortic valve insufficiency. Pulmonic Valve There is no pulmonic valvular stenosis. No pulmonic valve insufficiency. Great Vessels Normal aortic root. Pericardium/Pleural No pericardial effusion. MMode/2D Measurements & Calculations LVIDd: 3.3 cm IVSd: 1.3 cm Ao root diam: 3.4 cm LVIDs: 1.8 cm LVPWd: 1.2 cm RVDd: 3.4 cm FS: 44.4 % LAV(MOD-bp): 44.8 ml LA A4 area: 16.2 cm2 LA dimension(2D): 3.4 cm LAV(MOD-bp) Indexed: 19.9 ml/m2 LAV(MOD-sp2): 45.5 ml LAV(MOD-sp4): 40.9 ml RA A4 area: 14.1 cm2 Time Measurements MV dec time: 0.19 sec Doppler Measurements & Calculations MV E max tony: 61.5 cm/sec Lat Peak E' Tony: 8.8 cm/sec Med Peak E' Tony: 6.7 cm/sec MV A max tony: 84.2 cm/sec E/E' lat: 7.0 E/E' med: 9.2 MV E/A: 0.73 Ao V2 max: 144.8 cm/sec LV V1 max: 123.6 cm/sec TR max tony: 254.0 cm/sec Ao max P.4 mmHg LV V1 max P.1 mmHg TR max P.9 mmHg Interpretation Summary The estimated ejection fraction is 65 %. No evidence for diastolic dysfunction. Trivial tricuspid valve insufficiency. Ordering Physician: Zach Ahumada Referring Physician: NIGEL SAUL Performed By: Vidhya Ponce, LOIDA, RVT
[2019-09-22 04:30] LABS: Cholesterol 161 mg/dL (200); High Density Lipoprotein 44 mg/dL; Triglycerides 72 mg/dL; Very Low Density Lipoprotein 14 mg/dL (5-40)
--- NOTE | 2019-09-22 04:38 | US_ITS ---
STUDY: ABDOMINAL ULTRASOUND - RIGHT UPPER QUADRANT REASON FOR VISIT: Female, 59 years old . Elevated liver enzymes. TECHNIQUE: Ultrasound evaluation of the right upper quadrant was performed with real-time and static crews-scale imaging. TECHNICAL QUALITY: Adequate. COMPARISON: None. FINDINGS: Liver: The liver measures 12 point cm. There is increased echogenicity consistent with fatty infiltration. The bile ducts are within normal limits. There is hepatic color flow. The direction of portal flow is hepatopetal. There is no demonstrated mass lesion. Gallbladder: The patient is status post cholecystectomy. Common Bile Duct (C.B.D.): The common bile duct measures 3.4 mm. Pancreas: Normal size of the head, body of the pancreas. The tail portion is obscured due to overlying bowel gas. There is normal echogenicity of the pancreas. There is no demonstrated pancreatic mass or cyst. Right Kidney: Normal size of the right kidney. The right kidney measures 9.5 cm x 4.2 cm x 5.2 cm. Normal renal cortex. The right cortex measures 1.2 cm. 2 cysts are seen. The larger measures 1.3 cm x 1 cm by 1.1 cm. There is mild hydronephrosis of the right kidney. US/Liver IMPRESSION: Fatty infiltration of the liver. Mild right hydronephrosis. Right renal cysts. Electronically Signed: Brady Moreira, at 15:06 EST , Service support ,
--- NOTE | 2019-09-22 14:31 | CHAPLAIN ---
Type of Pastoral Visit _x__ Initial Visit ___ Follow-up Visit ___ On-call Visit ___ General Patient Visit ___ Spiritual Assessment ___ Family Conference ___ Bereavement ___ Rapid Response ___ Code Blue ___ Other (describe below) Pastoral Care Referral From _x__ Patient ___ Family _x__ Nurse ___ Physician ___ Mobile Developer ___ E Learning Designer ___ Other (describe below) Sacrament/Intervention ___ Active listening ___ Anointing ___ Baptist ___ Bereavement ___ Communion ___ Veronica exploration ___ ___ Life review ___ Prayer ___ Reconciliation ___ Sacrament of Sick _x__ Supportive presence ___ Wedding ___ Other (describe below) Pastoral Comments patient was resting; spouse was with pt; pt is introduced to support and responds that she will keep it in mind; pt says she is waiting on test results and has no other needs at this time
--- NOTE | 2019-09-22 15:41 | STRESSREP ---
Stress Test Report Date: 09/22/2019 Procedure: Pharmacologic stress nuclear imaging study Indications: Chest pain Consent: Per the patient Procedure: The patient underwent pharmacologic (Regadenoson) evaluation with a peak heart rate of 120 beats per minute (75 %predicted maximal heart rate) and a peak blood pressure of 110/70 mmHg. The baseline ECG demonstrated normal sinus rhythm. EKG during lexiscan infusion revealed no significant ischemic changes. EKG post infusion revealed no significant ischemic changes [There were no cardiac dysrhythmias pretest, during pharmacologic infusion, or recovery]. [There was no complaint of chest discomfort during pharmacologic infusion or recovery]. The examination was discontinued secondary to completion of protocol. Impression: 1. Lexiscan stress test test is negative for Lexiscan infusion induced EKG changes of ischemia. 2. Lexiscan stress test test is negative for Lexiscan infusion induced chest pain. 3. Results of the nuclear portion of the test is as below Myocardial perfusion imaging study: Technique: The patient was injected with 15 millicuries of technetium 99m Cardiolite and subsequently rest SPECT Cardiolite nuclear imaging was obtained in the horizontal long, vertical long, and short axis views. The patient underwent pharmacologic (Regadenoson) evaluation. Please see above for details. The patient was injected with 44.8 millicuries of technetium 99m Cardiolite and subsequently stress SPECT Cardiolite nuclear imaging was obtained in the horizontal long, vertical long, and short axis views. A gated Cardiolite study at peak stress was obtained. Interpretation: Rest and stress SPECT Cardiolite nuclear imaging status post realignment, normalization, and attenuation correction demonstrate no definite evidence of significant ischemia or infarction. Gated images reveal no significant regional wall motion abnormalities. The reported LVEF is greater than 70 %. Impression: 1. There is no evidence of significant ischemia or infarction. 2. Estimated ejection fraction is greater than 70%. This note was generated with [employer] software. It may contain incorrect words, spelling, and punctuation that were not noted in checking the note before signing.
--- NOTE | 2019-09-22 16:15 | DCINST_ITS ---
- Discharge Diagnoses Current Active Problems: Current Active and Chronic Problems (Last Reviewed 09/22/19 @ 04:57 by Zach Ahumada MD) Chest pain (Acute) You will use the following diet at home:: Cardiac Your food should be the consistency of: Regular Discharge Activity: Return to Normal Activity Weight Bearing Status: Weight bearing as tolerated Call your doctor if you observe: Shortness of breath, Chest pain Instructions: Angina Allergies/Adverse Reactions: Allergies codeine Allergy (Verified 09/21/19 23:34) Itching latex Allergy (Verified 09/21/19 23:34) Rash tramadol Allergy (Verified 09/21/19 23:34) Hives prochlorperazine [From Compazine] Adverse Reaction (Unknown, Verified 09/21/19 23:34) Other hallucinations, paranoia lactose Adverse Reaction (Verified 09/21/19 23:34) Nausea/Vom/Diarrhea Medications to take at Discharge Multivitamin/Iron/Folic Acid [Centrum Adults Tablet] 1 ea PO DAILY 04/26/19 ondansetron 4 mg disintegrating tablet 4 mg PO Q8H PRN #30 tab 06/20/19 amlodipine 5 mg tablet 5 mg PO DAILY #90 tab 08/25/19 oxybutynin chloride 15 mg tablet,extended release 24 hr 15 mg PO DAILY #30 tab 09/12/19 Primary Care Physician: Kenyon Thompson DO [Primary Care Provider] - Please follow up with your Primary Care Physician in: one week Test Results: Test results from this visit will be discussed in further detail at your follow- up appointment, if applicable. Proposed Discharge Date: 09/22/19
--- NOTE | 2019-09-22 16:16 | DS.PCM_ITS ---
Discharge Date and Diagnosis - Problem List Patient Problems: Active and Suspected Problems (Last Reviewed 09/22/19 @ 04:57 by Zach Ahumada MD) Chest pain (Acute) Date of Admission: 09/22/19 Date of Discharge: 09/22/19 - Primary Discharge Diagnosis Active and Suspected Problems (Last Reviewed 09/22/19 @ 04:57 by Zach Ahumada MD) Chest pain (Acute) - Secondary Discharge Diagnosis Chronic Problems (Last Reviewed 09/22/19 @ 04:57 by Zach Ahumada MD) Chronic headaches (Chronic) Urinary incontinence in female (Chronic) GERD (gastroesophageal reflux disease) (Chronic) Kidney stones (Chronic) IBS (irritable bowel syndrome) (Chronic) Chronic headaches (Chronic) Gastrointestinal complaints (Chronic) Chronic bronchitis (Chronic) Frequent UTI (Chronic) Back problem (Chronic) Seasonal allergies (Chronic) Migraines (Chronic) Morbid obesity with BMI of 40.0-44.9, adult (Chronic) Anxiety and depression (Chronic) Pt. has a lot of emotional problems, family problems especially with a autistic child. Takotsubo syndrome (Chronic) Hospital Course and Treatment Imaging Results: 09/22/19 08:32 Nuclear Stress Test - Chemical [NM] Routine Operations: None, - - 11/25/[address] Andersen, ORIF R samreen ankle fracture. Procedures: 2-D Echocardiogram, Stress test Summary of Care Provided: The patient is a 59 year old F with a history of Takotsubo cardiomyopathy. She was admitted through the ED in the early hours of 09/22/2019 with a complaint of chest pain which started about 2 days prior to presentation. Was a burning chest pain which radiated to her back. She states pain started when she found out her dog was sick and worsened after her dog was put down. When her dog was cremated, the chest pain became very severe so she decided to come into the ED. She said chest pain was similar to the chest pain she had in 2011 when her dog and she was diagnosed with Takotsubo cardiomyopathy . Troponins x3 were negative. Patient had a 2D echo on 09/22/2019 which showed EF of 65% with no evidence of diastolic dysfunction and no regional wall motion abnormalities noted. PA systolic pressure was 35 mmHg. 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 She had stress test on 09/22/2019 which showed no evidence of significant ischemia or infarction. On account of mildly elevated liver enzymes she had a liver ultrasound which showed fatty infiltration of the liver with mild right hydronephrosis and right renal cyst. She remained stable and was discharged home on 09/22/2019. Patient is to f ollow-up with her primary care doctor for referral to a surgeon about the narrowing of the proximal celiac artery due to the median arcuate ligament of the diaphragm. Patient seen and examined prior to discharge. She had no complaints. Chest pain had not recurred since admission. Review of systems otherwise negative. Labs and vitals reviewed. Home medication reviewed and reconciled. Patient Problems: Active and Suspected Problems (Last Reviewed 09/22/19 @ 04:57 by Zach Ahumada MD) Chest pain (Acute) - Physical Exam Vitals/I&O's: Vital Signs Temp Pulse Resp BP Pulse Ox 98.1 F 72 20 H 143/84 H 98 09/22/19 14:00 09/22/19 14:00 09/22/19 14:00 09/22/19 14:00 09/22/19 14:00 Oxygen Flow Rate (L/min) 2 Oxygen Delivery Method Room Air Weight: 264 lb 8.875 oz Body Mass Index (BMI) 42.7 Intake and Output for Last 24 Hours 09/20/19 09/21/19 09/22/19 23:59 23:59 23:59 Intake Total 1060 / 1060 Output Total 200 / 200 Balance 860 / 860 General: Alert, Oriented x3, Cooperative, - - morbidly obese HEENT: Atraumatic, PERRLA, EOMI, Normocephalic Oral: Moist Mucosa Neck: Supple, No JVD, Negative Carotid Bruits Lungs: Clear to auscultation, Normal air movement, No rhonchi Cardiovascular: Regular rate, Regular Rhythm, Normal S1, Normal S2, No murmurs Abdomen: Bowel Sounds Present, Soft, Non Tender, Non-Distended, No Hepato- splenomegaly Extremities: No clubbing, No cyanosis, No edema, Capillary Refill Less than 3 Seconds Skin: No rashes, No breakdown Musculoskeletal: No Tenderness to Palpation of Joints or Extremities Lymphatic: No Cervical, Supraclavicular, or Inguinal Adenopathy Neurological: Cranial nerves II-XII grossly intact, Neuro grossly intact, Motor Exam 5/5 strength throughout Psych/Mental Status: Normal Affect, Appropriate, Alert and oriented to time, place, person, mood and affect Laboratory Results 09/21/19 23:37: WBC 5.7, RBC 4.74, Hgb 13.8, Hct 42.8, MCV 90.3, MCH 29.1, MCHC 32.2, RDW Std Deviation 43.8, RDW Coeff of Michel 13.2, Plt Count 158, MPV 10.9, Immature Gran % (Auto) 0.200, Neut % (Auto) 53.8, Lymph % (Auto) 31.5, Hardy % (Auto) 11.8 H, Eos % (Auto) 2.4, Baso % (Auto) 0.3, Absolute Neuts (auto) 3.1, Absolute Lymphs (auto) 1.81, Nucleated RBC % 0 09/21/19 23:37: Sodium 142, Potassium 3.8, Chloride 109 H, Carbon Dioxide 27.0, Anion Gap 6, BUN 13, Creatinine 0.96, Estim Creat Clear Calc 57.61, Est GFR (MDRD) Af Amer 76, Est GFR (MDRD) Non-Af 63, BUN/Creatinine Ratio 13.5, Glucose 90, Calcium 8.7, Total Bilirubin 0.70, AST 105 H, ALT 105 H, Alkaline Phosphatase 81, Troponin I < 0.015, Total Protein 7.0, Albumin 3.7, Globulin 3. 3, Albumin/Globulin Ratio 1.1, Lipase 195 09/22/19 04:00: Triglycerides 72, Cholesterol 161, LDL Cholesterol 103, VLDL Cholesterol 14, HDL Cholesterol 44 09/22/19 04:00: Troponin I < 0.015 09/22/19 06:45: Troponin I < 0.015 09/22/19 06:45: Hepatitis A IgM Ab Pending, Hep Bs Antigen Pending, Hep B Core IgM Ab Pending, Hepatitis C Ab (EIA) Pending Current Medications Acetaminophen (Tylenol) 650 mg PO Q6H PRN PRN PRN Reason: Pain Score 1-10/Temp > 100.7 F Amlodipine Besylate (Norvasc) 5 mg PO DAILY PATY Aspirin (Ecotrin) 81 mg PO DAILY@0800 PATY Glucagon () 1 mg IM .X1 PRN PRN Reason: Hypoglycemia Dextrose (Dextrose 10%-Water) 250 mls @ 999 mls/hr IV .Q16M PRN; Protocol PRN Reason: HYPOGLYCEMIA Sodium Chloride () 250 mls @ 15 mls/hr IV .[id number] PRN PRN Reason: Saline Flush Sodium Chloride () 250 mls @ 15 mls/hr IV .[id number] PRN PRN Reason: Additional IVPB Infusion Melatonin (Melatonin) 3 mg PO QHS PRN PRN PRN Reason: INSOMNIA Morphine Sulfate () 2 mg IV Q3H PRN PRN PRN Reason: Pain Score 6-10/10 Multivitamins/Minerals (Multivitamin With Minerals) 1 tablet PO DAILY@0800 PATY Nitroglycerin (Nitrostat) 0.4 mg SUBLINGUAL Q5M PRN PRN Reason: Chest pain Last Admin: 09/22/19 00:20 Dose: 0.4 mg Documented by: Nystatin (Mycostatin Powder) 1 applic TOPICAL BID PATY; Protocol Ondansetron HCl (Zofran) 4 mg IV Q8H PRN PRN PRN Reason: NAUSEA/VOMITING Sodium Chloride () 10 - 40 ml IV UD PRN PRN Reason: SALINE FLUSH Tolterodine Tartrate (Detrol La) 4 mg PO DAILY PATY Discharge Diet: Low fat/ Low Cholesterol Discharge Activity: Return to Normal Activity Weight Bearing Status: Weight bearing as tolerated Call your doctor if you observe: Shortness of breath, Chest pain Home Medications: Medications to take at Discharge Multivitamin/Iron/Folic Acid [Centrum Adults Tablet] 1 ea PO DAILY 04/26/19 ondansetron 4 mg disintegrating tablet 4 mg PO Q8H PRN #30 tab 06/20/19 amlodipine 5 mg tablet 5 mg PO DAILY #90 tab 08/25/19 oxybutynin chloride 15 mg tablet,extended release 24 hr 15 mg PO DAILY #30 tab 09/12/19 Primary Care Physician: Kenyon Thompson DO [Primary Care Provider] - Please follow up with your Primary Care Physician in: one week Patient Instructions: Angina Disposition: Home Minutes spent on discharge:: 35 Patient Condition:: Stable Medical Necessity - Tobacco Use Smoking Status: Never smoker Tobacco Use: Non-smoker Meaningful Use Info Meaningful Use Diagnoses (Choose all that apply): None applicable Code Visit OBSV E&M: 63466 Observation care discharge
[2019-09-23 04:07] LABS: HEPATITIS B SURFACE AG Negative (Negative); Hepatitis A IgM Antibody Negative (Negative); Hepatitis B Core AB IgM Negative (Negative)
[2019-09-23 16:32] LABS: Hep C Antibodies <0.1 s/co ratio (0.0-0.9)
== END 2019-09-22 16:49 | disposition home or self-care (01) ==
LOC: ED 09-22 00:33 → ICU 09-22 03:36
PROVIDERS: Admitting Provider Hospitalist; Emergency Provider Emergency Medicine; Family Provider Family Medicine; PCP Family Medicine; Referring Provider Hospitalist; Visit Provider Student in an Organized Health Care Education/Training Program
DX: I77.4 Celiac artery compression syndrome (principal); R07.89 Other chest pain; L30.4 Erythema intertrigo; I10 Essential (primary) hypertension; I51.81 Takotsubo syndrome; K21.9 Gastro-esophageal reflux disease without esophagitis; K58.0 Irritable bowel syndrome with diarrhea; R32 Unspecified urinary incontinence; E66.01 Morbid (severe) obesity due to excess calories; Z79.899 Other long term (current) drug therapy; Z68.41 Body mass index [BMI] 40.0-44.9, adult; Z71.3 Dietary counseling and surveillance; N13.30 Unspecified hydronephrosis; N28.1 Cyst of kidney, acquired; R74.8 Abnormal levels of other serum enzymes; K76.0 Fatty (change of) liver, not elsewhere classified
CPT/HCPCS: 71046; 71275; 74175; 76705; 78452; 80053; 80061; 80074; 83690; 84484; 85025; 93005; 93017; 93306; 96360; 96361; 99218; 99285; A9500; J7030; Q9957; Q9967; A4216; G0378; J2785

== ENCOUNTER → 2019-09-26 14:08 | Outpatient (CLI) | payer OTHER, SELFPAY ==
[2019-09-26 13:13] VITALS: BMI 42.7
--- NOTE | 2019-09-26 14:15 | RAD_ITS ---
STUDY: X-RAY - ABDOMEN/PELVIS REASON FOR EXAM: Female, 59 years old. CHEST PRESSURE, WEAKNESS, ABDOMINAL PAIN AND LAST BOWEL MOVEMENT WAS THURSDAY TECHNIQUE: 5 views of the abdomen COMPARISON: None. FINDINGS: Normal visualized lung bases. Prior cholecystectomy. There is an unremarkable bowel gas pattern. There is no demonstrated free abdominal air. The visualized liver, spleen and kidneys are grossly normal in size and morphology. There are calcified phleboliths in the pelvis. There are diffuse degenerative changes of the visualized lumbar spine, with mild scoliosis convex to the left.. RAD/Abd Inc Decub and/or Erect IMPRESSION: Nonobstructive bowel gas pattern. Prior cholecystectomy. Electronically Signed: Dave Gamez MD at 20:50 EST Tel [phone], Service support ,
[2019-09-26 17:46] LABS: Bacteria 0 SEEN /hpf (None Seen); Mucous, Urine 0 SEEN /hpf (<or=2+); Red Blood Cells-Urine 0 SEEN /hpf (0-5)
[2019-09-26 17:56] LABS: Color, Urine Yellow (Yellow); Glucose, Dipstick Normal (Normal); Ketone-Dipstick Negative (Negative); Leukocyte Esterase-Dipstick 25 /ul (Negative); Nitrite-Dipstick Negative (Negative); Occult Blood-Urine Negative /ul (Negative); Protein-Dipstick 15 mg/dl (Negative); Urine Bilirubin Dipstick Negative (Negative); Urine Clarity Sl. Cloudy (Clear); Urine Urobilinogen 1 mg/dl (Normal)
[2019-09-26 18:04] LABS: Squamous Epithelial Cells - UA 0-5 SEEN /hpf (5-10); White Blood Cells 0-5 SEEN /hpf (0-5)
== END ==
PROVIDERS: Family Provider Family Medicine; PCP Family Medicine; Referring Provider Internal Medicine; Visit Provider Internal Medicine
DX: K59.00 Constipation, unspecified (principal); R30.0 Dysuria; R10.9 Unspecified abdominal pain
CPT/HCPCS: 74019; 81001

== ENCOUNTER 2019-09-27 15:10 | Emergency (ER) | payer OTHER, SELFPAY ==
[2019-09-26 13:13] VITALS: BMI 42.7
[2019-09-27 15:11] VITALS: BP 141/88; PULSE 99; RESP 20; TEMP 36.6; O2SAT 99; BMI 41.5
--- NOTE | 2019-09-27 15:36 | ED.VIS.GEN ---
History of Present Illness Chief Complaint: Abd Pain Detail of Chief Complaint: Constipation x6 days and now nausea and vomiting Informant: Patient Onset: Days - 6 days ago Context: Sudden Onset Timing: Continuous Quality: Crampy/colicky Location: Diffuse Current Severity: Mild Maximum Severity: Severe Worsened by: P.o. intake Relieved by: Nothing Associated Symptoms: Nausea and vomiting at 0400 & 1000 Narrative: Patient is a 59-year-old woman who presents with diffuse colicky/crampy abdominal pain that radiates to her back. Onset 6 days ago. She now reports nausea and vomiting. She had episode of emesis at 0400 and at 1000. She reports persistent nausea. She states she has not had a bowel movement since last September 21 and has not passed gas since that time. She did have an outpatient x-ray that shows significant moderate fecal stasis with a nonobstructing gas pattern. X-ray was reviewed by me and the interpretation radiologist was read. She denies fever, chills night sweats. She denies weight gain or weight loss. She denies ocular, visual auditory symptoms. She denies cardiac respiratory symptoms. She is status post cholecystectomy. She denies dysuria, frequency, urgency or hematuria. She states her dog recently . informed me that the dog to height on the way to the vet. She had chest pain last week and underwent full evaluation. When her prior dog she presented as an acute ST elevation CO. 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 Prior similar symptoms: Yes Recent Illness/Hospitalization: Yes - Past Medical History (1) Anxiety and depression Status: Chronic Comment: Pt. has a lot of emotional problems, family problems especially with a autistic child. (2) Back problem Status: Chronic (3) Chronic headaches Status: Chronic (4) Frequent UTI Status: Chronic (5) GERD (gastroesophageal reflux disease) Status: Chronic (6) Morbid obesity with BMI of 40.0-44.9, adult Status: Chronic (7) Takotsubo syndrome Status: Chronic (8) Urinary incontinence in female Status: Chronic Past Medical History - Allergies and Home Meds Allergies/Adverse Reactions: Allergies codeine Allergy (Verified 09/27/19 15:16) Itching latex Allergy (Verified 09/27/19 15:16) Rash tramadol Allergy (Verified 09/27/19 15:16) Hives prochlorperazine [From Compazine] Adverse Reaction (Unknown, Verified 09/27/19 15:16) Other hallucinations, paranoia lactose Adverse Reaction (Verified 09/27/19 15:16) Nausea/Vom/Diarrhea Primary Care Physician: Kenyon Thompson DO [Primary Care Provider] - Prior records reviewed: Yes Surgical History: cholecystectomy, hysterectomy, - - Carpal tunnel surgery BL, L knee arthroscopic surgery, now recent R ORIF samreen ankle fracture. Smoking Status: Never smoker Alcohol: None Drugs: None - Family History Maternal Family History: Family History (Last Reviewed 09/22/19 @ 04:57 by Zach Ahumada MD) Father Alcoholism Anxiety Depressed CVA (cerebral vascular accident) Lung cancer Mother Heart disease Hypertension Grandmother Alcoholism Sister Liver disease Alcoholism Sister Mental disorder Aunt Breast cancer Family History: Reports: Diabetes, Heart Disease Paternal Family History: Family History (Last Reviewed 09/22/19 @ 04:57 by Zach Ahumada MD) Father Alcoholism Anxiety Depressed CVA (cerebral vascular accident) Lung cancer Mother Heart disease Hypertension Grandmother Alcoholism Sister Liver disease Alcoholism Sister Mental disorder Aunt Breast cancer Family History: Reports: Diabetes, Heart Disease, Hypertension Review of Systems General: Denies: Chills, Fever, Sweats Eyes: Denies: Visual changes - bilaterally, Blurred Vision - bilaterally, Diplopia ENT: Denies: Rhinorrhea, Sore throat Cardiovascular: Denies: Chest pain, Palpitations Respiratory: Denies: Dyspnea, Cough, Dyspnea on exertion Gastrointestinal: Reports: Abdominal pain, Nausea, Vomiting, Constipation, - - Reports no flatus since September 21.. Denies: Diarrhea, Melena, Hematochezia Genitourinary: Denies: Dysuria, Hematuria, Frequency Musculoskeletal: Reports: Back pain. Denies: Myalgias, Arthralgias, Neck pain, Swelling, Extremity Pain Skin: Denies: Rash, Wounds Neurological: Denies: Headache, Weakness, Numbness Psych: Reports: Depression, Anxiety Hematologic: Denies: Easy bruising, Easy bleeding Physical Exam Vital Signs/Narrative: Vital Signs Temp Pulse Resp BP Pulse Ox 09/27/19 15:11 97.9 F 99 20 H 141/88 H 99 Inital Vital Signs reviewed: Yes General: Well nourished, Well developed, Obese, Acute Distress Head: Normocephalic, Atraumatic Eyes: Perrl, EOMI. Negative for: Pale conjunctiva, Scleral icterus ENT: Moist mucous membranes, No rhinorrhea Neck: Supple, Nontender, No lymphadenopathy, No JVD Cardiovascular: Regular rate, Regular rhythm, No murmurs, Normal S1, Normal S2 Respiratory: No distress, CTA bilaterally, Chest nontender Abdomen: Soft, Nondistended, No masses, Tender - Is out of proportion to tactile stimulus., Hypoactive bowel sounds. Negative for: Nontender, Normal bowel sounds, Guarding, Rebound tenderness, Hyperactive bowel sounds Rectal: - - There is no stool on rectal exam. There is no fissures, fistulas or hemorrhoids noted. Back: Nontender, Normal Inspection Extremities: Nontender, No edema. Negative for: Tenderness, Edema, Calf Tenderness Skin: Normal color, No rash. Negative for: Cyanosis, Diaphoresis, Jaundice Neurological: Alert, Oriented x3, Cranial nerves II-XII grossly intact, Normal Strength, Normal Sensation Psychological: Depressed, Tearful Diagnostic/Tx/Re-eval Chest X-Ray - ED: Read by ED Physician, - - Review abdominal series reveals an ossific gas pattern with moderate amount of fecal stasis. There is no evidence of pneumoperitoneum. There is evidence of discoid atelectasis right and left lower lung. Cardiac silhouette is normal. Mediastinum is normal. Osseous structures appear normal. 09/27/19 16:20 Acute Abdomen Inc Chest [RAD] Stat Laboratory Results 09/27/19 09/27/19 15:54 15:54 WBC 9.9 RBC 4.82 Hgb 14.0 Hct 42.5 MCV 88.2 MCH 29.0 MCHC 32.9 RDW Std Deviation 41.2 RDW Coeff of Michel 12.8 Plt Count 204 MPV 10.8 Immature Gran % (Auto) 0.200 Neut % (Auto) 70.1 H Lymph % (Auto) 14.8 L [place] % (Auto) 14.1 H Eos % (Auto) 0.5 Baso % (Auto) 0.3 Absolute Neuts (auto) 6.9 Absolute Lymphs (auto) 1.46 Nucleated RBC % 0 Sodium 137 Potassium 4.2 Chloride 106 Carbon Dioxide 24.0 Anion Gap 7 BUN 11 Creatinine 0.86 Estim Creat Clear Calc 64.31 Est GFR (MDRD) Af Amer 87 Est GFR (MDRD) Non-Af 72 BUN/Creatinine Ratio 12.8 Glucose 112 H Calcium 8.8 View x-ray of the abdomen reveals no evidence of obstruction. There is an ossific gas pattern with moderate amount of fecal stasis. Chest portion reveals discoid atelectasis right and left lower lobe. White count is unremarkable. Basic metabolic panel is unremarkable. Patient admits she took codeine. She was informed this can cause constipation. - Medical Decision Making Patient reports no bowel movement or flatus for 6 days we will repeat x-ray since x-ray is not very sensitive with regards to partial bowel obstruction. Blood work was obtained since none has been obtained the past week. She was treated with Bentyl for her colicky pain and Zofran for her nausea. There is also depression secondary to loss of her dog/pet. She was informed of her laboratory and x-ray findings. Plan is Bentyl p.o. and GI cocktail for constipation. ED Disposition - Plan for ED Patient: Disposition: Home or Assisted Living Diagnosis: Obstipation, Nausea and vomiting Instructions: CONSTIPATION (Adult) Prescriptions: Dicyclomine HCl [Bentyl] 20 mg PO TIDAC #20 cap Transmission Status: Pending to [facility] Referrals: Kenyon Thompson, DO [Primary Care Provider] - 3-5 Days if not improving Additional Instructions: Drink 10 ounces of mag citrate tomorrow morning upon awakening. 4 hours later drink a glass of MiraLAX. Continue to drink a glass of MiraLAX every hour until you have a results.
[2019-09-27 16:00] LABS: Absolute Lymphocyte Count 1.46 X10^3/uL (0.83-4.51); Absolute Neutrophil Count 6.9 X10^3/uL (2.0-7.7); Basophil# 0.03 X10^3/uL; Basophil% 0.3 % (0-1); Eosinophil# 0.05 X10^3/uL; Eosinophils% 0.5 % (0-5); Hematocrit 42.5 % (37-47); Lymphocyte # 1.46 X10^3/ul (4.0); Lymphocyte % 14.8 % (19-41); Mean Corp Hgb Conc 32.9 g/dL (32-36); Mean Corpuscular Volume 88.2 fL (81-99); Mean Platelet Vol. 10.8 fl (6.2-12.0); Monocyte# 1.39 X10^3/uL; Monocyte% 14.1 % (0-10); NRBC Flagged by Analyzer 0 % (0-5); Neutrophil # 6.94 X10^3/uL (2.7-7.7); Neutrophil % 70.1 % (47-70); Platelet Count 204 K/mm3 (150-450); RBC Distribution Width CV 12.8 % (11.6-14.6); RBC Distribution Width SD 41.2 fl (35.1-43.9); Red Blood Count 4.82 M/mm3 (4.2-5.4); White Blood Count 9.9 K/mm3 (4.4-11.0)
[2019-09-27 16:03] VITALS: RESP 18
[2019-09-27] MEDS: Ondansetron 4 MG/2 ML Vial IV (16:08)
[2019-09-27] MEDS: Dicyclomine 20 MG/2 ML Vial IM (16:10)
[2019-09-27 16:14] LABS: Anion Gap 7 (5-15); BUN 11 mg/dL (7-18); BUN/Creat Ratio 12.8 RATIO (10-20); Calcium,Total 8.8 mg/dL (8.5-10.1); Chloride 106 mmol/L (98-107); Creatinine, Serum 0.86 mg/dL (0.55-1.02); EST Glomerular Filtration Rate 72 mL/min (>60); Est Glom Filt Rate - Afr Amer 87 mL/min (>60); Estimated Creatinine Clearance 64.31 ml/min; Glucose 112 mg/dL (74-106); Potassium 4.2 mmol/L (3.5-5.1); Sodium Level 137 mmol/L (136-145)
--- NOTE | 2019-09-27 16:20 | RAD_ITS ---
STUDY: X-RAY - ACUTE ABDOMINAL SERIES REASON FOR EXAM: Female, 59 years old. Constipation x 6 days, no flatus, upper abdominal pain TECHNIQUE: Single view of the chest. Supine, 5 view(s) of the abdomen were obtained. COMPARISON: September 21, 2019 FINDINGS: The lungs are clear and expanded. Normal size heart. Normal mediastinum and smai. Normal visualized pulmonary arteries. Normal visualized aortic arch and descending thoracic aorta. There is a stable surgical clip within the right upper abdomen. There are scattered air-fluid levels within nondistended loops of bowel, a nonspecific bowel gas pattern. The soft tissue structures of the abdomen and pelvis are unremarkable. There are degenerative changes of the mid lumbar spine. RAD/Acute Abdomen Inc Chest IMPRESSION: Nonspecific bowel gas pattern. Electronically Signed: Lurdes Gallardo MD at 16:37 EST Tel , Service support ,
--- NOTE | 2019-09-27 16:43 | ED.DCSUM_ITS ---
- ER Visit Summary Date of Service: 09/27/19 Chief Complaint: [] History of Present Illness: The patient is a 59 F [] Physical Examination: [] Test Results: [] Emergency Department Course and Treatment: [] Treatment Plan: [] Disposition: [] Impression: [] This note was generated with [employer] dictation software. It may contain incorrect words, spelling, and punctuation that were not noted in review of the chart prior to signing ED Disposition - Plan for ED Patient: Disposition: Home or Assisted Living Diagnosis: Obstipation, Nausea and vomiting Instructions: CONSTIPATION (Adult) Prescriptions: Dicyclomine HCl [Bentyl] 20 mg PO TIDAC #20 cap Transmission Status: Pending to [facility] Ondansetron [Zofran Odt] 4 mg PO Q8H PRN PRN #10 tab PRN Reason: Nausea Transmission Status[facility] Referrals: Kenyon Thompson, DO [Primary Care Provider] - 3-5 Days if not improving Additional Instructions: Drink 10 ounces of mag citrate tomorrow morning upon awakening. 4 hours later drink a glass of MiraLAX. Continue to drink a glass of MiraLAX every hour until you have a results.
[2019-09-27 16:58] VITALS: BP 141/82; RESP 18
[2019-09-27] MEDS: Naproxen 250 MG Tablet 500 MG PO (17:00)
== END 2019-09-27 17:08 | disposition home or self-care (01) ==
PROVIDERS: Emergency Provider Emergency Medicine; Family Provider Family Medicine; PCP Family Medicine
DX: K59.00 Constipation, unspecified (principal); R11.2 Nausea with vomiting, unspecified; K21.9 Gastro-esophageal reflux disease without esophagitis; E66.01 Morbid (severe) obesity due to excess calories; Z68.41 Body mass index [BMI] 40.0-44.9, adult; Z87.440 Personal history of urinary (tract) infections
CPT/HCPCS: 74022; 80048; 85025; 96372; 96374; 99285; A4216; J2405

== ENCOUNTER 2019-09-28 23:10 | Emergency (ER) | payer OTHER, SELFPAY ==
[2019-09-27 15:11] VITALS: BMI 41.5
[2019-09-28 23:11] VITALS: BP 123/95; PULSE 101; RESP 16; TEMP 36.7; O2SAT 97; BMI 40.5
--- NOTE | 2019-09-28 23:19 | CT_ITS ---
We are attempting to reach an attending provider to discuss findings. An addendum with communication details will be sent when the communication is complete. HISTORY: LLQ PAIN, HX CONSTIPATION, GB, HYSTERECTOMY, BLADDER SUSPENSION AND KS TECHNIQUE: Helically acquired images were obtained of the abdomen and pelvis following the intravenous administration of 100 ML of Isovue-370 Iodinated contrast. 2D reformats. No oral contrast was administered. A radiation dose optimization technique was used for this scan. COMPARISON: X-ray of the abdomen from September 27. X-ray of the abdomen from September 26, 2019. Ultrasound of the liver from September 22, 2019. CT scan of the abdomen and pelvis from September 22, 2019. CT scan of the abdomen and pelvis from November 25, 2013. FINDINGS: # of images incl. paperwork: 506 LUNG BASES: Basilar scarring is present bilaterally and similar to the previous [address] abdomen: Degenerative disc disease is present within the lower lumbar spine. Vertebral body height is preserved. Facet arthropathy is present within the lumbar spine. The gallbladder has been resected. Thrombus extends within the left and right portal veins, but has occluded the portal vein to the left hepatic lobe. Thrombus is present within the SMV throughout the abdomen. The liver continues to enhance homogeneously with arterial blood flow and without evidence of hepatic venous thrombus. . spleen, pancreas, and adrenal glands, are normal. Benign renal cysts are better demonstrated on the recent ultrasound. The aorta is diseased with atherosclerotic calcific plaque, but without aneurysm or dissection. CT pelvis: No ascites is present. The uterus has been resected. The appendix is normal. Series 2 image 94. The bladder is decompressed. Bowel gas pattern is normal.. No constipation. 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 Some thrombus does extend into the right portal vein, but it is not completely thrombosed. Hepatic veins appear normal. The hepatic arteries appear normal. The patient has a normal anatomic variant right hepatic artery having its origin from the SMA. Individualized dose optimization techniques were used for this CT. at 0030 Reported and signed by: Montez Bruner MD Electronically Signed: Montez Bruner MD at 0:29 EST Tel , Service support ,
--- NOTE | 2019-09-28 23:20 | ED.VIS.GEN ---
History of Present Illness Chief Complaint: Abd Pain Informant: Patient Onset: Days Context: Gradual Onset Timing: Intermittent Current Severity: Moderate Maximum Severity: Moderate Narrative: The patient is a 59-year-old female with history of Tocco Subu cardiomyopathy, prior abdominal surgery, who presents to the emergency department with abdominal pain. Patient states her pain is been going on for a few days. She was actually seen here yesterday. At that point, her labs were unremarkable. Plain film showed rather significant stool burden. The patient was started on MiraLAX and magnesium citrate. She states she is had some watery bowel movements with feels like something is stuck. She denies any fevers or chills. She states she is just been very uncomfortable. She does not think she is ever had small bowel obstruction. Prior similar symptoms: Yes Recent Illness/Hospitalization: No Past Medical History - Allergies and Home Meds Allergies/Adverse Reactions: Allergies codeine Allergy (Verified 09/27/19 15:16) Itching latex Allergy (Verified 09/27/19 15:16) Rash tramadol Allergy (Verified 09/27/19 15:16) Hives prochlorperazine [From Compazine] Adverse Reaction (Unknown, Verified 09/27/19 15:16) Other hallucinations, paranoia lactose Adverse Reaction (Verified 09/27/19 15:16) Nausea/Vom/Diarrhea Primary Care Physician: Kenyon Thompson DO [Primary Care Provider] - Prior records reviewed: Yes Past Medical History: - - Cardiomyopathy, diabetes Surgical History: cholecystectomy, hysterectomy, - - Carpal tunnel surgery BL, L knee arthroscopic surgery, now recent R ORIF samreen ankle fracture. Smoking Status: Never smoker - Family History Maternal Family History: Family History (Last Reviewed 09/22/19 @ 04:57 by Zach Ahumada MD) Father Alcoholism Anxiety Depressed CVA (cerebral vascular accident) Lung cancer Mother Heart disease Hypertension Grandmother Alcoholism Sister Liver disease Alcoholism Sister Mental disorder Aunt Breast cancer Family History: Reports: Diabetes, Heart Disease Paternal Family History: Family History (Last Reviewed 09/22/19 @ 04:57 by Zach Ahumada MD) Father Alcoholism Anxiety Depressed CVA (cerebral vascular accident) Lung cancer Mother Heart disease Hypertension Grandmother Alcoholism Sister Liver disease Alcoholism Sister Mental disorder Aunt Breast cancer Family History: Reports: Diabetes, Heart Disease, Hypertension Review of Systems General: Denies: Chills, Fever, Sweats Eyes: Denies: Visual changes - bilaterally, Diplopia ENT: Denies: Rhinorrhea, Sore throat Cardiovascular: Denies: Chest pain, Palpitations Respiratory: Denies: Dyspnea, Cough, Dyspnea on exertion Gastrointestinal: Reports: Abdominal pain, Constipation. Denies: Nausea, Vomiting, Diarrhea, Melena, Hematochezia Genitourinary: Denies: Dysuria, Hematuria, Frequency Musculoskeletal: Denies: Back pain, Extremity Pain Skin: Denies: Rash, Wounds Neurological: Denies: Headache, Weakness, Numbness Physical Exam Vital Signs/Narrative: Vital Signs Temp Pulse Resp BP Pulse Ox 09/28/19 23:11 98.0 F 101 H 16 123/95 H 97 Inital Vital Signs reviewed: Yes General: Well nourished, Well developed, No Acute Distress Head: Normocephalic, Atraumatic Eyes: Perrl, EOMI ENT: Moist mucous membranes, No rhinorrhea Neck: Supple, Nontender Cardiovascular: Regular rate, Regular rhythm, No murmurs Respiratory: No distress, CTA bilaterally, Chest nontender Abdomen: Soft, Nondistended, Normal bowel sounds, Tender Back: Nontender, Normal Inspection Extremities: Nontender, No edema Skin: Normal color, No rash Neurological: Alert, Oriented x3, Cranial nerves II-XII grossly intact, Normal Strength, Normal Sensation Psychological: Normal affect, Normal Mood Diagnostic/Tx/Re-eval Clinical Impression(s) from Imaging Studies Abdomen/Pelvis CT 09/28/19 23:19 IMPRESSION: 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 Some thrombus does extend into the right portal vein, but it is not completely thrombosed. Hepatic veins appear normal. The hepatic arteries appear normal. The patient has a normal anatomic variant right hepatic artery having its origin from the SMA. Individualized dose optimization techniques were used for this CT. 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 Some thrombus does extend into the right portal vein, but it is not completely thrombosed. Hepatic veins appear normal. The hepatic arteries appear normal. The patient has a normal anatomic variant right hepatic artery having its origin from the SMA. Individualized dose optimization techniques were used for this CT. at 0030 Reported and signed by: Montez Bruner MD N.B. : The above information has been verbally conveyed by Montez Bruner MD to Yair Thompson MD, on 09/29/2019 00:37:38 (ET). Electronically Signed: Montez Bruner MD at 0:29 EST Tel , Service support , Abnormal Lab Results 09/28/19 09/28/19 09/29/19 23:40 23:40 00:48 WBC 8.9 RBC 4.56 Hgb 13.1 Hct 40.9 MCV 89.7 MCH 28.7 MCHC 32.0 RDW Std Deviation 41.7 RDW Coeff of Michel 12.6 Plt Count 221 MPV 11.1 Immature Gran % (Auto) 0.200 Neut % (Auto) 65.5 Lymph % (Auto) 20.6 [place] % (Auto) 12.3 H Eos % (Auto) 1.1 Baso % (Auto) 0.3 Absolute Neuts (auto) 5.8 Absolute Lymphs (auto) 1.84 Nucleated RBC % 0 PT 14.3 INR 1.1 APTT 41.6 H Sodium 138 Potassium 3.8 Chloride 105 Carbon Dioxide 26.0 Anion Gap 7 BUN 12 Creatinine 1.14 H Estim Creat Clear Calc 48.51 Est GFR (MDRD) Af Amer 62 Est GFR (MDRD) Non-Af 52 L BUN/Creatinine Ratio 10.5 Glucose 124 H Lactic Acid Calcium 8.4 L Total Bilirubin 0.40 AST 27 ALT 35 Alkaline Phosphatase 86 Total Protein 7.1 Albumin 2.9 L Globulin 4.2 Albumin/Globulin Ratio 0.7 L Lipase 132 Urine Color Urine Clarity Urine pH Ur Specific [place] Urine Protein Urine Glucose (UA) Urine Ketones Urine Occult Blood Urine Nitrite Urine Bilirubin Urine Urobilinogen Ur Leukocyte Esterase Urine RBC Urine WBC Ur Squamous Epith Cells Urine Bacteria Urine Mucus 09/29/19 09/29/19 00:48 01:00 WBC RBC Hgb Hct MCV MCH MCHC RDW Std Deviation RDW Coeff of Michel Plt Count MPV Immature Gran % (Auto) Neut % (Auto) Lymph % (Auto) [place] % (Auto) Eos % (Auto) Baso % (Auto) Absolute Neuts (auto) Absolute Lymphs (auto) Nucleated RBC % PT INR APTT Sodium Potassium Chloride Carbon Dioxide Anion Gap BUN Creatinine Estim Creat Clear Calc Est GFR (MDRD) Af Amer Est GFR (MDRD) Non-Af BUN/Creatinine Ratio Glucose Lactic Acid 1.2 Calcium Total Bilirubin AST ALT Alkaline Phosphatase Total Protein Albumin Globulin Albumin/Globulin Ratio Lipase Urine Color Yellow Urine Clarity Clear Urine pH 7.0 Ur Specific [place] 1.010 Urine Protein Negative Urine Glucose (UA) Normal Urine Ketones Negative Urine Occult Blood Negative Urine Nitrite Negative Urine Bilirubin Negative Urine Urobilinogen Normal Ur Leukocyte Esterase Negative Urine RBC 0 SEEN Urine WBC 0 SEEN Ur Squamous Epith Cells 0-5 SEEN Urine Bacteria RARE Urine Mucus 0 SEEN - Medical Decision Making The patient presents with recurrent abdominal pain. It is diffuse and crampy in nature. She has no focal rebound or guarding. She is had 2 sets of plain films, but given the pain and age, I did want to rule out other intra-abdominal process. Labs obtained were unremarkable. Lactic acid was normal. The patient's pain was controlled. CT does demonstrate SMV thrombus with extension into the hepatic veins. There is normal arterial supply that is demonstrated. I did discuss this case with general surgery here who recommended transfer to a tertiary facility. The patient requested transfer to [facility]. This was discussed with the transfer line. She was accepted. The patient will be transferred to [facility] for SMV thrombus. Impression 1. Abdominal pain 2. SMV thrombus ED Disposition - Plan for ED Patient: Referrals: Kenyon Thompson DO [Primary Care Provider] -
[2019-09-28] MEDS: Morphine 4 MG/ML Syringe IV (23:48)
[2019-09-28] MEDS: 0.9% Normal Saline 1,000 ML 1000 ML IV (23:48)
[2019-09-28] MEDS: Ondansetron 4 MG/2 ML Vial IV (23:48)
[2019-09-28 23:50] LABS: Absolute Lymphocyte Count 1.84 X10^3/uL (0.83-4.51); Absolute Neutrophil Count 5.8 X10^3/uL (2.0-7.7); Basophil# 0.03 X10^3/uL; Basophil% 0.3 % (0-1); Eosinophils% 1.1 % (0-5); Hematocrit 40.9 % (37-47); Hemoglobin 13.1 g/dL (12.0-15.0); Lymphocyte # 1.84 X10^3/ul (4.0); Lymphocyte % 20.6 % (19-41); Mean Corpuscular Hgb 28.7 pg (27.0-32.0); Mean Corpuscular Volume 89.7 fL (81-99); Mean Platelet Vol. 11.1 fl (6.2-12.0); Monocyte% 12.3 % (0-10); NRBC Flagged by Analyzer 0 % (0-5); Neutrophil # 5.83 X10^3/uL (2.7-7.7); Neutrophil % 65.5 % (47-70); Platelet Count 221 K/mm3 (150-450); RBC Distribution Width CV 12.6 % (11.6-14.6); RBC Distribution Width SD 41.7 fl (35.1-43.9); Red Blood Count 4.56 M/mm3 (4.2-5.4); White Blood Count 8.9 K/mm3 (4.4-11.0)
[2019-09-29 00:03] LABS: ALB/GLOB Ratio 0.7 RATIO (0.9-2.4); AST(SGOT) 27 U/L (15-37); Alanine Aminotransfer ALT/SGPT 35 U/L (13-56); Albumin, Serum 2.9 g/dL (3.2-5.0); Alkaline Phosphatase 86 U/L (45-117); Anion Gap 7 (5-15); BUN 12 mg/dL (7-18); BUN/Creat Ratio 10.5 RATIO (10-20); Calcium,Total 8.4 mg/dL (8.5-10.1); Chloride 105 mmol/L (98-107); Creatinine, Serum 1.14 mg/dL (0.55-1.02); EST Glomerular Filtration Rate 52 mL/min (>60); Est Glom Filt Rate - Afr Amer 62 mL/min (>60); Estimated Creatinine Clearance 48.51 ml/min; Globulin 4.2 g/dL (2.2-4.2); Glucose 124 mg/dL (74-106); Lipase 132 U/L (73-393); Potassium 3.8 mmol/L (3.5-5.1); Protein, Total 7.1 g/dL (6.4-8.2); Sodium Level 138 mmol/L (136-145)
[2019-09-29 01:01] LABS: International Normalized Ratio 1.1; Prothrombin Time (Protime)PT. 14.3 SECONDS (11.7-14.9)
[2019-09-29 01:01] LABS: Mucous, Urine 0 SEEN /hpf (<or=2+); Red Blood Cells-Urine 0 SEEN /hpf (0-5); White Blood Cells 0 SEEN /hpf (0-5)
[2019-09-29 01:02] LABS: Color, Urine Yellow (Yellow); Glucose, Dipstick Normal (Normal); Ketone-Dipstick Negative (Negative); Leukocyte Esterase-Dipstick Negative /ul (Negative); Nitrite-Dipstick Negative (Negative); Occult Blood-Urine Negative /ul (Negative); Protein-Dipstick Negative (Negative); Urine Bilirubin Dipstick Negative (Negative); Urine Clarity Clear (Clear); Urine Urobilinogen Normal (Normal)
[2019-09-29 01:02] LABS: Partial Thromboplast Time 41.6 Seconds (24.1-36.2)
[2019-09-29 01:12] LABS: Bacteria RARE /hpf (None Seen); Squamous Epithelial Cells - UA 0-5 SEEN /hpf (5-10)
[2019-09-29 01:18] LABS: Lactic Acid 1.2 mmol/L (0.4-1.9)
[2019-09-29] MEDS: Morphine 4 MG/ML Syringe IV (01:33)
--- NOTE | 2019-09-29 01:35 | ED.RN ---
[facility] LOOKING AT INFORMATION
[2019-09-29 01:38] VITALS: BP 132/80; PULSE 94; RESP 15; O2SAT 97
[2019-09-29] MEDS: Heparin Injection (Vial) 5,000 UNIT/ML VIAL 4000 UNIT IV (02:35)
[2019-09-29] MEDS: HEPARIN/D5w 25,000 UNITS 25,000 UNITS/250 ML IV.SOLN. 10 UNITS IV (02:40)
[2019-09-29 03:02] VITALS: BP 108/63; PULSE 65; RESP 11; O2SAT 97
== END 2019-09-29 03:05 | disposition short-term general hospital (02) ==
LOC: ED 23:35
PROVIDERS: Emergency Provider Emergency Medicine; Family Provider Family Medicine; PCP Family Medicine
DX: I81 Portal vein thrombosis (principal); I82.890 Acute embolism and thrombosis of other specified veins; R10.84 Generalized abdominal pain; I42.8 Other cardiomyopathies; E11.9 Type 2 diabetes mellitus without complications; Z90.49 Acquired absence of other specified parts of digestive tract; Z79.899 Other long term (current) drug therapy
CPT/HCPCS: 74177; 80053; 81001; 83605; 83690; 85025; 85610; 85730; 96361; 96365; 96375; 96376; 99285; J7030; Q9967; A4216; J2405

== ENCOUNTER → 2019-10-13 11:45 | Outpatient (CLI) | payer OTHER, SELFPAY ==
[2019-10-13 11:13] VITALS: BMI 40.5
[2019-10-13 11:48] LABS: Bacteria 0 SEEN /hpf (None Seen); Mucous, Urine 0 SEEN /hpf (<or=2+); Squamous Epithelial Cells - UA 0 SEEN /hpf (5-10)
[2019-10-13 12:34] LABS: Color, Urine Yellow (Yellow); Glucose, Dipstick Normal (Normal); Ketone-Dipstick Negative (Negative); Leukocyte Esterase-Dipstick 500 /ul (Negative); Nitrite-Dipstick Positive (Negative); Occult Blood-Urine 25 /ul (Negative); Protein-Dipstick 15 mg/dl (Negative); Specific Gravity, Urine 1.015 (1.002-1.030); Urine Bilirubin Dipstick Negative (Negative); Urine Clarity Sl. Cloudy (Clear); Urine Urobilinogen Normal (Normal)
[2019-10-13 12:42] LABS: Red Blood Cells-Urine 0-5 SEEN /hpf (0-5); White Blood Cells >100 SEEN /hpf (0-5)
== END ==
PROVIDERS: Family Provider Family Medicine; PCP Family Medicine; Visit Provider Family Medicine
DX: R30.0 Dysuria (principal)
CPT/HCPCS: 81001

== ENCOUNTER → 2019-10-17 12:26 | Outpatient (CLI) | payer OTHER, SELFPAY ==
[2019-10-13 11:13] VITALS: BMI 40.5
[2019-10-17 12:31] LABS: Bacteria 0 SEEN /hpf (None Seen); Mucous, Urine 0 SEEN /hpf (<or=2+)
[2019-10-17 13:28] LABS: International Normalized Ratio 2.5; Prothrombin Time (Protime)PT. 26.8 SECONDS (11.7-14.9)
[2019-10-17 13:40] LABS: Color, Urine Yellow (Yellow); Glucose, Dipstick Normal (Normal); Ketone-Dipstick Negative (Negative); Leukocyte Esterase-Dipstick 25 /ul (Negative); Nitrite-Dipstick Negative (Negative); Occult Blood-Urine 25 /ul (Negative); Protein-Dipstick Negative (Negative); Urine Bilirubin Dipstick Negative (Negative); Urine Clarity Sl. Cloudy (Clear); Urine Urobilinogen Normal (Normal)
[2019-10-17 14:09] LABS: Homocysteine 8.8 umol/L (3.2-10.7)
[2019-10-17 14:35] LABS: Red Blood Cells-Urine 0-5 SEEN /hpf (0-5); Squamous Epithelial Cells - UA 0-5 SEEN /hpf (5-10); White Blood Cells 0-5 SEEN /hpf (0-5)
[2019-10-21 15:17] LABS: Antithrombin 3 Function 95 % (75-135); Protein C, Functional 58 % (73-180); Protein S, Funtional 42 % (63-140)
== END ==
PROVIDERS: Family Provider Family Medicine; PCP Family Medicine; Referring Provider Family Medicine; Visit Provider Family Medicine
DX: R32 Unspecified urinary incontinence (principal); K55.069 Acute infarction of intestine, part and extent unspecified
CPT/HCPCS: 36415; 81001; 81241; 83090; 85300; 85303; 85306; 85610

== ENCOUNTER 2019-10-31 10:52 | Outpatient (RCR) | payer OTHER, SELFPAY ==
[2019-10-13 11:13] VITALS: BMI 40.5
[2019-10-31 12:38] LABS: International Normalized Ratio 1.7; Prothrombin Time (Protime)PT. 19.9 SECONDS (11.7-14.9)
== END 2019-11-04 23:59 ==
LOC: BIMLAB 10:52
PROVIDERS: PCP Family Medicine; Visit Provider Family Medicine
DX: K55.069 Acute infarction of intestine, part and extent unspecified (principal)
CPT/HCPCS: 36415; 85610

== ENCOUNTER → 2019-11-07 14:34 | Outpatient (CLI) | payer OTHER, SELFPAY ==
[2019-11-07 11:54] VITALS: BMI 40.5
[2019-11-07 15:10] LABS: Mucous, Urine 0 SEEN /hpf (<or=2+)
[2019-11-07 15:19] LABS: Glucose, Dipstick Normal (Normal); Ketone-Dipstick Negative (Negative); Leukocyte Esterase-Dipstick 500 /ul (Negative); Nitrite-Dipstick Positive (Negative); Occult Blood-Urine 10 /ul (Negative); Protein-Dipstick 30 mg/dl (Negative); Specific Gravity, Urine 1.015 (1.002-1.030); Urine Clarity Sl. Cloudy (Clear); Urine Urobilinogen 12 mg/dl (Normal); Urine pH 6.5 (5.0 - 8.0)
[2019-11-07 15:32] LABS: Color, Urine SEE COMMENT BELOW (Yellow); Urine Bilirubin Dipstick 6 mg/dL (Negative)
[2019-11-07 15:53] LABS: Bacteria 2+ /hpf (None Seen); Red Blood Cells-Urine 0-5 SEEN /hpf (0-5); Squamous Epithelial Cells - UA 0-5 SEEN /hpf (5-10); White Blood Cells 10-25 SEEN /hpf (0-5)
== END ==
PROVIDERS: PCP Family Medicine; Referring Provider Internal Medicine; Visit Provider Internal Medicine
DX: N39.0 Urinary tract infection, site not specified (principal); R35.0 Frequency of micturition
CPT/HCPCS: 81001; 87086; 87088; 87186

== ENCOUNTER → 2019-11-16 07:53 | Outpatient (CLI) | payer OTHER, SELFPAY ==
[2019-11-10 14:07] VITALS: BMI 40.5
--- NOTE | 2019-11-17 10:44 | PFT ---
INTRODUCTION: The patient is a 59-year-old female that presents for pulmonary function studies secondary to a diagnosis of hypoxemia. Respiratory therapy reports good patient effort. Bronchodilators were used during testing. INTERPRETATION: Forced expiration spirometry demonstrates no evidence of a large airways obstructive ventilatory defect. There was no significant response to aerosolized bronchodilators, based upon strict ATS criteria. Spirograms are of good quality and plateau normally. Body plethysmography was performed and reveals a decreased TLC to 4.12 L, 78% of predicted, indicative of a mild restrictive ventilatory impairment. Diffusing capacity by single breath CO is reduced at 59% of predicted. IMPRESSION: Mild restrictive ventilatory impairment with disproportionate reduction in diffusing capacity.
== END ==
PROVIDERS: PCP Family Medicine; Referring Provider Family Medicine; Visit Provider Family Medicine
DX: R09.02 Hypoxemia (principal)
CPT/HCPCS: 94060; 94726; 94729

== ENCOUNTER 2019-12-01 11:10 | Outpatient (RCR) | payer OTHER, SELFPAY ==
[2019-10-13 11:13] VITALS: BMI 40.5
[2019-11-07 12:26] LABS: International Normalized Ratio 1.9; Prothrombin Time (Protime)PT. 21.3 SECONDS (11.7-14.9)
[2019-11-16 12:42] LABS: International Normalized Ratio 2.4
[2019-12-01 12:46] LABS: International Normalized Ratio 2.5; Prothrombin Time (Protime)PT. 26.6 SECONDS (11.7-14.9)
== END 2019-12-03 23:59 ==
LOC: BIMLAB 11:10
PROVIDERS: PCP Family Medicine; Visit Provider Family Medicine
DX: K55.069 Acute infarction of intestine, part and extent unspecified (principal)
CPT/HCPCS: 36415; 85610

== ENCOUNTER 2019-12-30 16:26 | Outpatient (RCR) | payer OTHER, SELFPAY ==
[2019-11-24 11:08] VITALS: BMI 40.5
[2019-12-15 11:20] VITALS: BMI 40.5
[2019-12-15 12:44] LABS: International Normalized Ratio 2.9; Prothrombin Time (Protime)PT. 30.5 SECONDS (11.7-14.9)
[2019-12-30 17:17] LABS: International Normalized Ratio 2.1; Prothrombin Time (Protime)PT. 23.1 SECONDS (11.7-14.9)
== END 2020-01-03 23:59 ==
LOC: BIMLAB 16:26
PROVIDERS: PCP Family Medicine; Referring Provider Family Medicine; Visit Provider Family Medicine
DX: K55.069 Acute infarction of intestine, part and extent unspecified (principal)
CPT/HCPCS: 36415; 85610; 87086; 87088; 87186

== ENCOUNTER 2020-01-13 18:12 | Outpatient (RCR) | payer OTHER, SELFPAY ==
[2019-12-15 11:20] VITALS: BMI 40.5
== END 2020-02-02 23:59 ==
LOC: LABSPEC 18:12
PROVIDERS: PCP Family Medicine; Visit Provider Family Medicine
DX: K55.069 Acute infarction of intestine, part and extent unspecified (principal)

== ENCOUNTER 2020-01-31 12:25 | Outpatient (RCR) | payer OTHER, SELFPAY ==
[2019-12-15 11:20] VITALS: BMI 40.5
[2020-01-20 16:14] LABS: International Normalized Ratio 3.1; Prothrombin Time (Protime)PT. 31.9 SECONDS (11.7-14.9)
[2020-01-31 12:31] LABS: Red Blood Cells-Urine 0 SEEN /hpf (0-5)
[2020-01-31 13:53] LABS: Color, Urine Yellow (Yellow); Glucose, Dipstick Normal (Normal); Ketone-Dipstick Negative (Negative); Leukocyte Esterase-Dipstick 500 /ul (Negative); Nitrite-Dipstick Negative (Negative); Occult Blood-Urine 10 /ul (Negative); Protein-Dipstick 30 mg/dl (Negative); Urine Bilirubin Dipstick Negative (Negative); Urine Clarity Sl. Cloudy (Clear); Urine Urobilinogen Normal (Normal)
[2020-01-31 14:09] LABS: Bacteria 1+ /hpf (None Seen); Mucous, Urine RARE /hpf (<or=2+); Squamous Epithelial Cells - UA 0-5 SEEN /hpf (5-10); White Blood Cells 5-10 SEEN /hpf (0-5)
[2020-01-31 14:11] LABS: International Normalized Ratio 2.9
== END 2020-02-02 18:00 | disposition home or self-care (01) ==
LOC: LAB 12:25
PROVIDERS: PCP Family Medicine; Referring Provider Family Medicine; Visit Provider Family Medicine
DX: K55.069 Acute infarction of intestine, part and extent unspecified (principal)
CPT/HCPCS: 36415; 81001; 85610

== ENCOUNTER 2020-02-04 15:57 | Emergency (ER) | payer OTHER, SELFPAY ==
[2019-12-15 11:20] VITALS: BMI 40.5
[2020-02-04 15:58] VITALS: BP 213/79; PULSE 90; RESP 18; TEMP 36.4; O2SAT 98; BMI 39.1
[2020-02-04 17:37] LABS: Bacteria 0 SEEN /hpf (None Seen); Mucous, Urine 0 SEEN /hpf (<or=2+); Red Blood Cells-Urine 0 SEEN /hpf (0-5)
[2020-02-04 17:50] LABS: Color, Urine Yellow (Yellow); Glucose, Dipstick Normal (Normal); Ketone-Dipstick Negative (Negative); Leukocyte Esterase-Dipstick Negative /ul (Negative); Nitrite-Dipstick Positive (Negative); Occult Blood-Urine Negative /ul (Negative); Protein-Dipstick Negative (Negative); Urine Bilirubin Dipstick Negative (Negative); Urine Clarity Clear (Clear); Urine Urobilinogen Normal (Normal)
[2020-02-04 17:53] LABS: International Normalized Ratio 3.1; Prothrombin Time (Protime)PT. 31.7 SECONDS (11.7-14.9)
[2020-02-04 18:18] LABS: Squamous Epithelial Cells - UA 0-5 SEEN /hpf (5-10)
[2020-02-04 18:19] LABS: White Blood Cells 0-5 SEEN /hpf (0-5)
--- NOTE | 2020-02-04 18:35 | ED.VISSUMM ---
- ER Visit Summary Date of Service: 02/04/20 Chief Complaint: Bleeding from abdomen History of Present Illness: The patient is a [address] Kenyon Thompson. She reports that she is on Coumadin for what sounds to be a PE. States that just prior to coming emerge department she scratched her abdomen on the left and it began to bleed. She is unable to get the bleeding stopped. Her tetanus is up-to-date. She denies any pain. Patient reports that she began Augmentin yesterday for a urinary tract infection. States that her last INR was 4 days ago and was 2.9 at that time. She denies any dysuria or frequency at this time. No fever, chills, nausea, or vomiting. Physical Examination: Vitals: Stable. Afebrile. General: Well-nourished and well-developed. Head: Normocephalic atraumatic. Neck: Supple, no lymphadenopathy. No JVD. Nontender. Cardiovascular: Regular rate and rhythm. No murmurs. Respiratory: No respiratory distress. Clear to auscultation bilaterally. Abdominal: Soft, nontender, nondistended, normal bowel sounds. No guarding, rebound, or peritoneal signs. Back: Nontender. Extremities: Nontender, no edema. Skin: Left inguinal region there is a 2 cm superficial laceration with minimal active bleeding. Neurologic: Alert and oriented ?3. Cranial nerves II through XII are intact. Normal strength and sensation. Psych: Normal affect. Test Results: INR is 3.1. Urinalysis is positive for nitrites. Emergency Department Course and Treatment: This in a very difficult area to dress. Patient had Surgicel and a dressing placed over the area. There is been minimal bleeding since that time. Treatment Plan: Patient is instructed to hold her Coumadin for the next 2 days. Continue her Augmentin. Get her INR checked and speak with her doctor about further dosing of her Coumadin and the results of the urine culture that were obtained today. Return to the emergency department for any worsening symptoms. Disposition: To home in improved and stable condition. Impression: 1. Laceration left inguinal region, 2 cm, not repaired. 2. Supratherapeutic INR. This note was generated with [employer] dictation software. It may contain incorrect words, spelling, and punctuation that were not noted in review of the chart prior to signing ED Disposition - Plan for ED Patient: Disposition: Home or Assisted Living Instructions: ED Laceration Small or Superficial Not Stitched Referrals: Kenyon Thompson, [Primary Care Provider] - 2 Days Additional Instructions: Do not take your Coumadin for the next 2 days. Get your INR checked again and then speak with Dr. Thompson about your Coumadin dosing. Contact Dr. Thompson in 2 days to get the result of your urine culture. Continue your Augmentin.
[2020-02-04 19:03] VITALS: BP 183/79; PULSE 82; RESP 16; O2SAT 96
== END 2020-02-04 19:03 | disposition home or self-care (01) ==
LOC: ED 16:46
PROVIDERS: Emergency Provider Emergency Medicine; PCP Family Medicine
DX: R79.1 Abnormal coagulation profile (principal); S31.114A Laceration without foreign body of abdominal wall, left lower quadrant without penetration into peritoneal cavity, initial encounter; W45.8XXA Other foreign body or object entering through skin, initial encounter; Y93.9 Activity, unspecified; Y92.89 Other specified places as the place of occurrence of the external cause; Y99.9 Unspecified external cause status; N39.0 Urinary tract infection, site not specified; Z79.01 Long term (current) use of anticoagulants
CPT/HCPCS: 81001; 85610; 87086; 99282

== ENCOUNTER 2020-03-03 08:28 | Outpatient (RCR) | payer OTHER, SELFPAY ==
[2019-12-15 11:20] VITALS: BMI 40.5
[2020-02-08 15:00] VITALS: BMI 39.1
[2020-02-29 12:48] LABS: Prothrombin Time (Protime)PT. 36.7 SECONDS (11.7-14.9)
[2020-02-29 13:02] LABS: International Normalized Ratio 3.7
[2020-03-03 09:54] LABS: Prothrombin Time (Protime)PT. 22.5 SECONDS (11.7-14.9)
== END 2020-03-03 18:00 | disposition home or self-care (01) ==
LOC: LAB 08:28
PROVIDERS: PCP Family Medicine; Referring Provider Family Medicine; Visit Provider Family Medicine
DX: K55.069 Acute infarction of intestine, part and extent unspecified (principal)
CPT/HCPCS: 36415; 85610

== ENCOUNTER 2020-03-26 09:43 | Outpatient (RCR) | payer OTHER, SELFPAY ==
[2020-02-08 15:00] VITALS: BMI 39.1
[2020-03-17 12:05] LABS: International Normalized Ratio 1.8; Prothrombin Time (Protime)PT. 19.9 SECONDS (11.7-14.9)
[2020-03-26 10:16] LABS: International Normalized Ratio 2.1; Prothrombin Time (Protime)PT. 22.8 SECONDS (11.7-14.9)
== END 2020-03-26 18:00 | disposition home or self-care (01) ==
LOC: LAB 09:43
PROVIDERS: PCP Family Medicine; Referring Provider Family Medicine; Visit Provider Family Medicine
DX: K55.069 Acute infarction of intestine, part and extent unspecified (principal)
CPT/HCPCS: 36415; 85610

== ENCOUNTER 2020-04-28 11:15 | Outpatient (RCR) | payer OTHER, SELFPAY ==
[2020-04-03 13:25] VITALS: BMI 39.1
[2020-04-14 12:39] LABS: International Normalized Ratio 2.2; Prothrombin Time (Protime)PT. 23.9 SECONDS (11.7-14.9)
[2020-04-28 11:50] LABS: International Normalized Ratio 2.1; Prothrombin Time (Protime)PT. 22.7 SECONDS (11.7-14.9)
== END 2020-04-28 18:00 | disposition home or self-care (01) ==
LOC: LAB 11:15
PROVIDERS: PCP Family Medicine; Referring Provider Family Medicine; Visit Provider Family Medicine
DX: K55.069 Acute infarction of intestine, part and extent unspecified (principal)
CPT/HCPCS: 36415; 85610

== ENCOUNTER 2020-06-02 11:50 | Outpatient (RCR) | payer OTHER, SELFPAY ==
[2020-04-03 13:25] VITALS: BMI 39.1
[2020-05-12 12:04] LABS: International Normalized Ratio 1.7; Prothrombin Time (Protime)PT. 19.6 SECONDS (11.7-14.9)
[2020-06-02 12:27] LABS: Prothrombin Time (Protime)PT. 22.5 SECONDS (11.7-14.9)
== END 2020-06-04 18:00 | disposition home or self-care (01) ==
LOC: LAB 11:50
PROVIDERS: PCP Family Medicine; Referring Provider Family Medicine; Visit Provider Family Medicine
DX: K55.069 Acute infarction of intestine, part and extent unspecified (principal)
CPT/HCPCS: 36415; 85610

== ENCOUNTER 2020-06-23 11:22 | Outpatient (RCR) | payer OTHER, SELFPAY ==
[2020-04-03 13:25] VITALS: BMI 39.1
[2020-06-23 12:12] LABS: International Normalized Ratio 2.6; Prothrombin Time (Protime)PT. 27.4 SECONDS (11.7-14.9)
== END 2020-06-23 18:00 | disposition home or self-care (01) ==
LOC: LAB 11:22
PROVIDERS: PCP Family Medicine; Referring Provider Family Medicine; Visit Provider Family Medicine
DX: K55.069 Acute infarction of intestine, part and extent unspecified (principal)
CPT/HCPCS: 36415; 85610

== ENCOUNTER → 2020-06-27 15:46 | Outpatient (CLI) | payer OTHER, SELFPAY ==
[2020-04-03 13:25] VITALS: BMI 39.1
[2020-06-27 16:15] LABS: CREATININE FINGERSTICK 0.9 mg/dL (0.55-1.02); EGFR FINGERSTICK > 60.0000 mL/min (>60)
--- NOTE | 2020-06-27 16:20 | CT_ITS ---
STUDY: CT ABDOMEN AND PELVIS WITH CONTRAST REASON FOR EXAM: Female, 59 years old. RODRIGO pain radiating into the back. History of aneurysm. RADIATION DOSAGE (If Supplied By Facility): CTDIvol = ( 17.07 ) mGy, DLP = ( 1424.62 ) mGycm TECHNIQUE: Transaxial images were obtained from the dome of the diaphragm to the symphysis pubis without oral contrast. 100mL Isovue-370 was administered. Sagittal and coronal images were reconstructed. Individualized dose optimization techniques were used for this CT. COMPARISON: 09/28/2019 FINDINGS: The visualized lung bases are unremarkable. The visualized portions of the heart are within normal limits. Normal liver. There are surgical clips in the gallbladder fossa consistent with a prior cholecystectomy. Normal spleen. Normal pancreas. Normal bilateral adrenal glands. Normal right kidney. Normal left kidney. Normal visualized stomach. Normal small intestine. Normal colon. The appendix is visualized and appears normal. Atherosclerotic changes of the abdominal aorta without aneurysm or dissection. Normal inferior vena cava. Normal retroperitoneum. Normal urinary bladder. Normal vaginal cuff. There is no pelvic lymphadenopathy. No free air or free fluid is seen within the abdominal cavity. Normal abdominal wall. Degenerative changes of the lumbar spine. CT/Abdomen/Pelvis WITH Contrast IMPRESSION: 1. No aortic aneurysm or dissection. 2. 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 3. No evidence of acute intra-abdominal or pelvic process. Electronically Signed: Pineda Carias DO at 22:56 EDT Tel [phone], Service support ,
== END ==
PROVIDERS: PCP Family Medicine; Referring Provider Family Medicine; Visit Provider Family Medicine
DX: K55.069 Acute infarction of intestine, part and extent unspecified (principal)
CPT/HCPCS: 74177; Q9967

== ENCOUNTER 2020-07-12 13:55 | Emergency (ER) | payer OTHER, SELFPAY ==
[2020-07-12 13:23] VITALS: BMI 39.1
[2020-07-12 13:56] VITALS: BP 148/85; PULSE 80; RESP 16; TEMP 36.6; O2SAT 99; BMI 44.0
--- NOTE | 2020-07-12 14:23 | EKG12_ITS ---
Test Reason : Blood Pressure : / mmHG Vent. Rate : 070 BPM Atrial Rate : 070 BPM P-R Int : 168 ms QRS Dur : 076 ms QT Int : 400 ms P-R-T Axes : 043 030 040 degrees QTc Int : 432 ms Normal sinus rhythm Normal ECG Confirmed by CEDRIC ESPINAL, RENAEAPRSINA ([id number]), industrial editor DEREJE HARRELL ([id number]) on 07/18/2020 11:00:16 AM Referred By: MARCELO
--- NOTE | 2020-07-12 14:55 | RAD_ITS ---
STUDY: X-RAY CHEST REASON FOR EXAM: Female, 59 years old. Right abdomen pain radiating into back x 2 weeks. TECHNIQUE: Single AP portable view of the chest. COMPARISON: None. FINDINGS: There is subsegmental atelectasis in the left lung base. There is no demonstrated pleural abnormality. Normal size heart. Normal mediastinum and sami. Normal visualized pulmonary arteries. Normal visualized aortic arch and descending thoracic aorta. Normal visualized thoracic spine. There is degenerative osteoarthritis of the bilateral shoulders. There is no demonstrated abnormality of the visualized soft tissue structures of the upper abdomen. RAD/Chest 1 View (Portable) IMPRESSION: Degenerative changes, as described above. No demonstrated acute cardiopulmonary process. Electronically Signed: Noe Terrazas, at 15:16 EDT Tel , Service support ,
[2020-07-12 15:32] LABS: Absolute Lymphocyte Count 1.55 X10^3/uL (0.83-4.51); Basophil# 0.05 X10^3/uL; Basophil% 0.8 % (0-1); Eosinophil# 0.23 X10^3/uL; Eosinophils% 3.5 % (0-5); Hematocrit 42.3 % (37-47); Hemoglobin 12.9 g/dL (12.0-15.0); Lymphocyte # 1.55 X10^3/ul (4.0); Lymphocyte % 23.7 % (19-41); Mean Corp Hgb Conc 30.5 g/dL (32-36); Mean Corpuscular Hgb 27.2 pg (27.0-32.0); Mean Corpuscular Volume 89.2 fL (81-99); Mean Platelet Vol. 10.8 fl (6.2-12.0); Monocyte# 0.69 X10^3/uL; Monocyte% 10.6 % (0-10); NRBC Flagged by Analyzer 0 % (0-5); Neutrophil # 3.98 X10^3/uL (2.7-7.7); Neutrophil % 60.9 % (47-70); Platelet Count 211 K/mm3 (150-450); RBC Distribution Width CV 13.6 % (11.6-14.6); RBC Distribution Width SD 44.8 fl (35.1-43.9); Red Blood Count 4.74 M/mm3 (4.2-5.4); White Blood Count 6.5 K/mm3 (4.4-11.0)
[2020-07-12 15:50] LABS: D-Dimer Quantitative (DVT/PE) < 0.27 FEU/ug/m (0.27-0.49)
[2020-07-12 15:51] LABS: Anion Gap 3 (5-15); BUN 19 mg/dL (7-18); BUN/Creat Ratio 17.8 RATIO (10-20); Calcium,Total 8.8 mg/dL (8.5-10.1); Chloride 106 mmol/L (98-107); Creatinine, Serum 1.07 mg/dL (0.55-1.02); EST Glomerular Filtration Rate 55 mL/min (>60); Est Glom Filt Rate - Afr Amer 67 mL/min (>60); Estimated Creatinine Clearance 51.69 ml/min; Glucose 98 mg/dL (74-106); Sodium Level 138 mmol/L (136-145)
[2020-07-12 15:55] VITALS: PULSE 58; RESP 18; O2SAT 95
--- NOTE | 2020-07-12 16:03 | ED.DCSUM_ITS ---
History of Present Illness Chief Complaint: Abd Pain Informant: Patient Narrative: 59-year-old female with past medical history of hypertension and diabetes presents with concern for pain in her right lower chest. States it is worse with movement. Describes it as aching. Denies any shortness of breath, nausea, vomiting, diaphoresis. States that she does have a clotting disorder but is anticoagulated on Coumadin but is going to be switched to Xarelto shortly. States that this clot was found in her abdomen but recently had a CT of her abdomen pelvis which showed resolution of this clot. Denies any trauma. Past Medical History - Allergies and Home Meds Allergies/Adverse Reactions: Allergies codeine Allergy (Verified 07/12/20 13:57) Itching latex Allergy (Verified 07/12/20 13:57) Rash tramadol Allergy (Verified 07/12/20 13:57) Hives prochlorperazine [From Compazine] Adverse Reaction (Unknown, Verified 07/12/20 13:57) Other hallucinations, paranoia lactose Adverse Reaction (Verified 07/12/20 13:57) Nausea/Vom/Diarrhea Primary Care Physician: Kenyon Thompson DO [Primary Care Provider] - Prior records reviewed: Yes Past Medical History: - - HTN, DMII Surgical History: cholecystectomy, hysterectomy, - - Carpal tunnel surgery BL, L knee arthroscopic surgery, now recent R ORIF samreen ankle fracture. Smoking Status: Never smoker - Family History Maternal Family History: Family History (Last Reviewed 07/12/20 @ 12:53 by Mindi Zarate) Father Alcoholism Anxiety Depressed CVA (cerebral vascular accident) Lung cancer Mother Heart disease Hypertension Grandmother Alcoholism Sister Liver disease Alcoholism Sister Mental disorder Aunt Breast cancer Family History: Reports: Diabetes, Heart Disease Paternal Family History: Family History (Last Reviewed 07/12/20 @ 12:53 by Mindi Zarate) Father Alcoholism Anxiety Depressed CVA (cerebral vascular accident) Lung cancer Mother Heart disease Hypertension Grandmother Alcoholism Sister Liver disease Alcoholism Sister Mental disorder Aunt Breast cancer Family History: Reports: Diabetes, Heart Disease, Hypertension Review of Systems General: Denies: Chills, Fever, Sweats Eyes: Denies: Visual changes - bilaterally, Diplopia ENT: Denies: Rhinorrhea, Sore throat Cardiovascular: Reports: Chest pain. Denies: Palpitations Respiratory: Denies: Dyspnea, Cough, Dyspnea on exertion Gastrointestinal: Denies: Abdominal pain, Nausea, Vomiting, Diarrhea, Melena, Hematochezia Genitourinary: Denies: Dysuria, Hematuria, Frequency Musculoskeletal: Denies: Back pain, Extremity Pain Skin: Denies: Rash, Wounds Neurological: Denies: Headache, Weakness, Numbness Physical Exam Vital Signs/Narrative: Vital Signs Temp Pulse Resp BP Pulse Ox 07/12/20 15:55 58 L 18 95 07/12/20 13:56 97.8 F 80 16 148/85 H 99 Inital Vital Signs reviewed: Yes General: Well nourished, Well developed, No Acute Distress Head: Normocephalic, Atraumatic Eyes: Perrl, EOMI ENT: Moist mucous membranes, No rhinorrhea Neck: Supple, Nontender Cardiovascular: Regular rate, Regular rhythm, No murmurs Respiratory: No distress, CTA bilaterally, - - TTP of the area under the right breast. Abdomen: Soft, Nontender, Nondistended, Normal bowel sounds Back: Nontender, Normal Inspection Extremities: Nontender, No edema Skin: Normal color, No rash Neurological: Alert, Oriented x3, Cranial nerves II-XII grossly intact, Normal Strength, Normal Sensation Psychological: Normal affect, Normal Mood Diagnostic/Tx/Re-eval Chest X-Ray - ED: 1 View, No Acute Disease Clinical Impression(s) from Imaging Studies Chest X-Ray 07/12/20 14:55 IMPRESSION: Degenerative changes, as described above. No demonstrated acute cardiopulmonary process. Electronically Signed: Noe Terrazas, at 15:16 EDT Tel , Service support , Laboratory Data 07/12/20 07/12/20 07/12/20 15:15 15:15 15:15 WBC 6.5 RBC 4.74 Hgb 12.9 Hct 42.3 MCV 89.2 MCH 27.2 MCHC 30.5 L RDW Std Deviation 44.8 H RDW Coeff of Michel 13.6 Plt Count 211 MPV 10.8 Immature Gran % (Auto) 0.500 Neut % (Auto) 60.9 Lymph % (Auto) 23.7 [place] % (Auto) 10.6 H Eos % (Auto) 3.5 Baso % (Auto) 0.8 Absolute Neuts (auto) 4.0 Absolute Lymphs (auto) 1.55 Nucleated RBC % 0 D-Dimer Quant (PE/DVT) < 0.27 L Sodium 138 Potassium 4.0 Chloride 106 Carbon Dioxide 29.0 Anion Gap 3 L BUN 19 H Creatinine 1.07 H Estim Creat Clear Calc 51.69 Est GFR (MDRD) Af Amer 67 Est GFR (MDRD) Non-Af 55 L BUN/Creatinine Ratio 17.8 Glucose 98 Calcium 8.8 Troponin I < 0.015 - Rhythm Strip Rhythm Strip: Sinus Rhythm Rate: 70 Ectopy: None - EKG Initial EKG Interpretation: Sinus Rhythm - Normal sinus rhythm at 70 bpm. PA interval of 168 ms. QTC of 432 ms. No evidence of ST elevation or depression at this time. - Medical Decision Making Appears well nontoxic. Vital signs within normal limits. Lab work normal including a negative d-dimer as well as troponin. Given the patient's pain is been constant over the course of several days I feel this is unlikely to be ACS with a single negative troponin. EKG nonischemic. Chest x-ray negative. Patient was given intravenous Toradol which did improve her pain. Will be given Naprosyn for home. Advised to follow-up with her primary care doctor. On further discussion she states that she has been waking up gasping for air and likely does need a sleep study which I advised her to get through her primary care physician. States that she also has had issues with swallowing. I did advise her to follow-up with primary care for referral for EGD. Asked to return for any new or worsening symptoms. Patient agreeable and discharged home in stable condition. 1. Atypical chest pain 2. History of HTN ED Disposition - Plan for ED Patient: Disposition: Home or Assisted Living Instructions: ED Chest Pain Atypical Unkn Cause Referrals: Kenyon Thompson DO [Primary Care Provider] -
[2020-07-12 16:43] VITALS: BP 117/72; PULSE 70; RESP 18; O2SAT 95
== END 2020-07-12 16:44 | disposition home or self-care (01) ==
PROVIDERS: Emergency Provider Emergency Medicine; PCP Family Medicine
DX: R07.89 Other chest pain (principal); I10 Essential (primary) hypertension; E11.9 Type 2 diabetes mellitus without complications; Z79.01 Long term (current) use of anticoagulants
CPT/HCPCS: 71045; 80048; 84484; 85025; 85379; 93005; 96374; 99283; A4216

== ENCOUNTER 2020-07-14 10:34 | Emergency (ER) | payer OTHER, SELFPAY ==
[2020-07-13 14:15] VITALS: BMI 43.7
[2020-07-14 10:35] VITALS: BP 140/100; PULSE 84; RESP 22; TEMP 36.1; O2SAT 95; BMI 27.4
--- NOTE | 2020-07-14 10:50 | CT_ITS ---
STUDY: CTA ABDOMEN AND PELVIS WITH CONTRAST REASON FOR EXAM: Female, 59 years old. Right upper quadrant pain, history of blood clot in the mesenteric artery. RADIATION DOSAGE (If Supplied By Facility): CTDIvol = ( 29.9 ) mGy, DLP = ( 1395.28 ) mGycm TECHNIQUE: Transaxial images were obtained from the dome of the diaphragm to the symphysis pubis without oral contrast. IV 100mL Isovue-370 was administered. Sagittal and coronal images were reconstructed. 3-D reconstruction images were not obtained. Individualized dose optimization techniques were used for this CT. COMPARISON: None. FINDINGS: The visualized portions of lung bases demonstrate mild stranding in the left lower lung partially visualized on this examination appears to be unchanged. The visualized portions of the heart are within normal limits. Small enhancing nodule in the posterior inferior segment of the right lobe of the liver difficult to evaluate on only arterial phase unchanged since the prior examinations. There are surgical clips in the gallbladder fossa consistent with a prior cholecystectomy. Normal spleen. Normal pancreas. Normal bilateral adrenal glands. Small cyst in the lower pole of the right kidney. No evidence of hydronephrosis. Normal visualized stomach. Mild thickening of the terminal ileum and distal ileal loops. No evidence of small bowel obstruction. Fecal retention. The colon is under distended. The appendix is visualized and appears normal. There is diffuse atherosclerotic calcification of the abdominal aorta, without a demonstrated aneurysm. Possible minimal narrowing of the origin of the celiac axis. The superior mesenteric artery appears unremarkable. There is no definite renal artery stenosis. The inferior mesenteric artery is patent. Normal inferior vena cava. Normal retroperitoneum. The bladder is not well-distended. Small calcification in the bladder base likely within the prostate unchanged prior exam. There is a small umbilical hernia containing fat. There are diffuse degenerative changes of the visualized lumbar spine. CT/CT ANGIO ABD&PEL W/O&W/DYE IMPRESSION: 1. Patient superior mesenteric artery without evidence of stenosis or filling defects. 2. Status post cholecystectomy. 3. Questionable mild thickening of the terminal ileum. No evidence of small bowel obstruction. 4. Otherwise no demonstrated acute process. Electronically Signed: Tomy Peck MD at 13:32 EDT Tel , Service support ,
--- NOTE | 2020-07-14 10:55 | ED.DCSUM_ITS ---
History of Present Illness Chief Complaint: Abd Pain Informant: Patient Onset: Month(s) Maximum Severity: Mild Narrative: The patient presents complaining of right sided abdominal discomfort that has been an ongoing issue for months. She indicates that basically she has been having abdominal pain for quite some time, she ultimately was found to have what she describes as some type of blood clot involving her abdominal structures possibly mesenteric not arterial as she recalls, she was transferred to [facility] had an evaluation there was placed on IV blood thinners that she recalls and then she was placed on Coumadin, she recently switched to Xarelto, she indicates is having ongoing pain to the right side of her abdomen, she indicates she has follow-up studies that show that the blood clotting issue resolved and the exact etiology of why she continues to have abdominal pain is unclear Is had no nausea no vomit no fever bowel and bladder habits are unremarkable, she was seen in the emergency room yesterday for an evaluation was negative told to follow-up with all of her outpatient providers return because the Bentyl is not helping her pain History of prior cholecystectomy about a year ago related to right side abdo marion pain that did not resolve her right-sided abdominal pain. No history of kidney stones no UTI symptoms no coronavirus exposure Past Medical History - Allergies and Home Meds Allergies/Adverse Reactions: Allergies codeine Allergy (Verified 07/14/20 10:35) Itching latex Allergy (Verified 07/14/20 10:35) Rash tramadol Allergy (Verified 07/14/20 10:35) Hives prochlorperazine [From Compazine] Adverse Reaction (Unknown, Verified 07/14/20 10:35) Other hallucinations, paranoia lactose Adverse Reaction (Verified 07/14/20 10:35) Nausea/Vom/Diarrhea Primary Care Physician: Kenyon Thompson DO [Primary Care Provider] - Past Medical History: - - Diabetes and as above Surgical History: cholecystectomy, hysterectomy, - - Carpal tunnel surgery BL, L knee arthroscopic surgery, now recent R ORIF samreen ankle fracture. Smoking Status: Never smoker - Family History Maternal Family History: Family History (Last Reviewed 07/13/20 @ 14:14 by Breann Burns) Father Alcoholism Anxiety Depressed CVA (cerebral vascular accident) Lung cancer Mother Heart disease Hypertension Grandmother Alcoholism Sister Liver disease Alcoholism Sister Mental disorder Aunt Breast cancer Family History: Reports: Diabetes, Heart Disease Paternal Family History: Family History (Last Reviewed 07/13/20 @ 14:14 by Breann Burns) Father Alcoholism Anxiety Depressed CVA (cerebral vascular accident) Lung cancer Mother Heart disease Hypertension Grandmother Alcoholism Sister Liver disease Alcoholism Sister Mental disorder Aunt Breast cancer Family History: Reports: Diabetes, Heart Disease, Hypertension Review of Systems General: Denies: Chills, Fever, Sweats Eyes: Denies: Visual changes - bilaterally, Diplopia ENT: Denies: Rhinorrhea, Sore throat Cardiovascular: Denies: Chest pain, Palpitations Respiratory: Denies: Dyspnea, Cough, Dyspnea on exertion Gastrointestinal: Reports: Abdominal pain. Denies: Nausea, Vomiting, Diarrhea, Melena, Hematochezia Genitourinary: Denies: Dysuria, Hematuria, Frequency Musculoskeletal: Denies: Back pain, Extremity Pain Skin: Denies: Rash, Wounds Neurological: Denies: Headache, Weakness, Numbness Physical Exam Vital Signs/Narrative: Vital Signs Temp Pulse Resp BP Pulse Ox 07/14/20 10:35 97 F L 84 22 H 140/100 H 95 General: Well nourished, Well developed, No Acute Distress Head: Normocephalic, Atraumatic Eyes: Perrl, EOMI ENT: Moist mucous membranes, No rhinorrhea Neck: Supple, Nontender Cardiovascular: Regular rate, Regular rhythm, No murmurs Respiratory: No distress, CTA bilaterally, Chest nontender Abdomen: Soft, Nondistended, Normal bowel sounds, Tender, - - She takes her hand and she is holding her right upper quadrant, under the rib cage, she complains of pain in this part of her abdomen radiates sometimes to her flank, she is a very large woman there is no rebound guarding organomegaly she denies fever cough or chest pain Back: Nontender, Normal Inspection Extremities: Nontender, No edema Skin: Normal color, No rash Neurological: Alert, Oriented x3, Cranial nerves II-XII grossly intact, Normal Strength, Normal Sensation Psychological: Normal affect, Normal Mood Diagnostic/Tx/Re-eval - Medical Decision Making Now her vital signs are unremarkable, reviewing the computer records some of them, she did have a CT that showed resolution of a mesenteric vein thrombosis, she was seen yesterday in the emergency department primarily for chest pain that work-up was unremarkable She indicates she has continued to constantly in a continuous fashion being on the anticoagulation she is eating and drinking well bowel and bladder habits unremarkable and continues to have right-sided abdominal pain Her complaints ED screening evaluation CTA of the abdomen pain management Please note per the computer record 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 recent CT showed resolution of the above, on reevaluation all of the patient's ED screening labs are generally unremarkable including lactate see those reports, abdominal CT shows no signs of arterial or venous vascular occlusions or abnormalities and generally unremarkable abdominal CT see that report Evaluation she is resting company the bed continue planes of vague pain to the right upper abdomen no rebound guarding organomegaly the CT did not quite a bit of fecal load she states is having normal bowel habit she does have history of constipation and irritable bowel at this time we paged Dr. Thompson her attending physician to discuss the case with him I did speak with him he agrees she can be discharged home to follow-up for outpatient management, she is taking [place] she can take that as needed she is to increase her use of stool softeners MiraLAX and return for change in symptoms Home stable Final impression is acute recurrent right-sided abdominal pain etiology unclear history of superior mesenteric vein and portal vein thrombosis resolved ED Disposition - Plan for ED Patient: Diagnosis: Abdominal pain Instructions: ED Abdominal Pain Unkn Cause Fem Prescriptions: Polyethylene Glycol 3350 [Miralax] 17 gm PO DAILY #7 packet Prescription Printed Hydrocodone Bitart/Apap 5-325 [[place] 5MG-325MG] 1 tab PO Q4H PRN PRN 2 Days #10 tab PRN Reason: Pain Prescription Printed Referrals: Kenyon Thompson DO [Primary Care Provider] -
[2020-07-14] MEDS: morphine 8 MG/ML Syringe IV (11:12)
[2020-07-14] MEDS: 0.9% Normal Saline 1,000 ML 999 ML IV (11:15)
[2020-07-14] MEDS: Ondansetron 4 MG/2 ML Vial IV (11:15)
[2020-07-14 11:33] LABS: Absolute Lymphocyte Count 1.84 X10^3/uL (0.83-4.51); Absolute Neutrophil Count 3.3 X10^3/uL (2.0-7.7); Basophil# 0.05 X10^3/uL; Basophil% 0.8 % (0-1); Eosinophils% 3.2 % (0-5); Hematocrit 43.2 % (37-47); Hemoglobin 13.6 g/dL (12.0-15.0); Lymphocyte # 1.84 X10^3/ul (4.0); Lymphocyte % 29.3 % (19-41); Mean Corp Hgb Conc 31.5 g/dL (32-36); Mean Corpuscular Hgb 27.7 pg (27.0-32.0); Mean Platelet Vol. 10.5 fl (6.2-12.0); Monocyte# 0.84 X10^3/uL; Monocyte% 13.4 % (0-10); NRBC Flagged by Analyzer 0 % (0-5); Neutrophil # 3.33 X10^3/uL (2.7-7.7); Neutrophil % 52.8 % (47-70); Platelet Count 229 K/mm3 (150-450); RBC Distribution Width CV 13.7 % (11.6-14.6); RBC Distribution Width SD 44.5 fl (35.1-43.9); Red Blood Count 4.91 M/mm3 (4.2-5.4); White Blood Count 6.3 K/mm3 (4.4-11.0)
[2020-07-14 11:48] LABS: ALB/GLOB Ratio 0.9 RATIO (0.9-2.4); AST(SGOT) 25 U/L (15-37); Alanine Aminotransfer ALT/SGPT 34 U/L (13-56); Albumin, Serum 3.5 g/dL (3.2-5.0); Alkaline Phosphatase 75 U/L (45-117); Anion Gap 6 (5-15); BUN 15 mg/dL (7-18); BUN/Creat Ratio 14.4 RATIO (10-20); Calcium,Total 8.9 mg/dL (8.5-10.1); Chloride 111 mmol/L (98-107); Creatinine, Serum 1.04 mg/dL (0.55-1.02); EST Glomerular Filtration Rate 57 mL/min (>60); Est Glom Filt Rate - Afr Amer 69 mL/min (>60); Estimated Creatinine Clearance 53.18 ml/min; Globulin 3.7 g/dL (2.2-4.2); Glucose 107 mg/dL (74-106); Lipase 207 U/L (73-393); Protein, Total 7.2 g/dL (6.4-8.2); Sodium Level 143 mmol/L (136-145)
[2020-07-14 11:59] LABS: Mucous, Urine 0 SEEN /hpf (<or=2+); Red Blood Cells-Urine 0 SEEN /hpf (0-5)
[2020-07-14 12:07] LABS: Color, Urine Yellow (Yellow); Glucose, Dipstick Normal (Normal); Ketone-Dipstick Negative (Negative); Leukocyte Esterase-Dipstick Negative /ul (Negative); Nitrite-Dipstick Negative (Negative); Occult Blood-Urine 10 /ul (Negative); Protein-Dipstick Negative (Negative); Urine Bilirubin Dipstick Negative (Negative); Urine Clarity Clear (Clear); Urine Urobilinogen Normal (Normal)
[2020-07-14 12:26] LABS: Bacteria 1+ /hpf (None Seen); Squamous Epithelial Cells - UA 0-5 SEEN /hpf (5-10); White Blood Cells 0-5 SEEN /hpf (0-5)
[2020-07-14 12:32] LABS: Lactic Acid 0.8 mmol/L (0.4-1.9)
[2020-07-14 14:55] VITALS: BP 147/92; PULSE 84; RESP 20; O2SAT 95
== END 2020-07-14 15:05 | disposition home or self-care (01) ==
LOC: ED 11:33
PROVIDERS: Emergency Provider Emergency Medicine; PCP Family Medicine
DX: R10.9 Unspecified abdominal pain (principal); E11.9 Type 2 diabetes mellitus without complications; Z86.718 Personal history of other venous thrombosis and embolism; Z79.02 Long term (current) use of antithrombotics/antiplatelets
CPT/HCPCS: 74174; 80053; 81001; 83605; 83690; 85025; 87086; 87088; 96361; 96374; 96375; 99283; J7030; Q9967; A4216; J2405

== ENCOUNTER 2020-07-16 12:22 | Emergency (ER) | payer OTHER, SELFPAY ==
[2020-07-16 12:22] VITALS: BP 144/79; PULSE 77; RESP 16; TEMP 36.4; O2SAT 96; BMI 43.5
--- NOTE | 2020-07-16 13:12 | CT_ITS ---
STUDY: CTA CHEST REASON FOR EXAM: Female, 59 years old. RT RIB PAIN RADIATION DOSAGE (If Supplied By Facility): CTDIvol = ( 13.78 ) mGy, DLP = ( 441.65 ) mGycm TECHNIQUE: The examination was performed with the intravenous administration of IV 100mL Isovue-370. Post-processing of the angiographic images was performed, with multiplanar reformation and 3D reconstruction. Individualized dose optimization techniques were used for this CT. COMPARISON: Comparison is made with prior study dated 09/22/2009 FINDINGS: Small benign-appearing bilateral axillary lymph nodes. Normal enhancement of the main pulmonary artery and right and left pulmonary arteries. Normal enhancement of the bilateral peripheral pulmonary arteries. There is no demonstrated pulmonary embolism. Normal thoracic aorta and visualized great vessels. There is no demonstrated aortic dissection. Normal heart and pericardium. Normal mediastinum. Normal hilar regions. Normal visualized trachea and bronchi. The lungs are well expanded. Patchy bibasilar infiltrates more prominent at the left lung base. Normal pleura. Normal chest wall structures. There are degenerative changes of thoracic spine. Normal visualized upper abdomen. CT/CTA Chest W/WO Contrast IMPRESSION: Patchy bibasilar pulmonary infiltrates more prominent at the left lung base. Electronically Signed: Brady Moreira, at 14:47 EDT , Service support ,
--- NOTE | 2020-07-16 13:12 | EKG12_ITS ---
Test Reason : ABDOMINAL PAIN Blood Pressure : / mmHG Vent. Rate : 070 BPM Atrial Rate : 070 BPM P-R Int : 176 ms QRS Dur : 076 ms QT Int : 394 ms P-R-T Axes : 037 024 019 degrees QTc Int : 425 ms Normal sinus rhythm Normal ECG Confirmed by CEDRIC ESPINAL, MAXWELL ([id number]), copy editor DEREJE HARRELL ([id number]) on 07/23/2020 8:28:37 A M Referred By: ROSLYN Confirmed By:DAVON STEELE MD
--- NOTE | 2020-07-16 13:35 | RAD_ITS ---
STUDY: X-RAY CHEST REASON FOR EXAM: Female, 59 years old. Chest pain TECHNIQUE: Single AP portable view of the chest. COMPARISON: Comparison is made with prior study dated 07/12/2020. FINDINGS: Bibasilar patchy infiltrates more prominent on the left side with blunting of the left costophrenic angle. Normal size heart. Normal mediastinum and sami. Normal visualized pulmonary arteries. Normal visualized aortic arch and descending thoracic aorta. Normal visualized thoracic spine. Normal visualized ribs, clavicles, and shoulders. There is no demonstrated abnormality of the visualized soft tissue structures of the upper abdomen. RAD/Chest 1 View (Portable) IMPRESSION: Bibasilar infiltrates more prominent on the left side with blunting of the left costophrenic angle. Electronically Signed: Brady Moreira, at 14:40 EDT , Service support ,
[2020-07-16 13:37] LABS: Absolute Lymphocyte Count 1.58 X10^3/uL (0.83-4.51); Absolute Neutrophil Count 2.4 X10^3/uL (2.0-7.7); Basophil# 0.03 X10^3/uL; Basophil% 0.6 % (0-1); Eosinophil# 0.17 X10^3/uL; Eosinophils% 3.5 % (0-5); Hematocrit 41.8 % (37-47); Hemoglobin 13.3 g/dL (12.0-15.0); Lymphocyte # 1.58 X10^3/ul (4.0); Lymphocyte % 32.8 % (19-41); Mean Corp Hgb Conc 31.8 g/dL (32-36); Mean Corpuscular Hgb 28.3 pg (27.0-32.0); Mean Corpuscular Volume 88.9 fL (81-99); Mean Platelet Vol. 10.5 fl (6.2-12.0); Monocyte# 0.62 X10^3/uL; Monocyte% 12.9 % (0-10); NRBC Flagged by Analyzer 0 % (0-5); Platelet Count 196 K/mm3 (150-450); RBC Distribution Width CV 13.6 % (11.6-14.6); RBC Distribution Width SD 43.8 fl (35.1-43.9); White Blood Count 4.8 K/mm3 (4.4-11.0)
[2020-07-16 13:49] LABS: International Normalized Ratio 2.3; Prothrombin Time (Protime)PT. 24.5 SECONDS (11.7-14.9)
[2020-07-16 13:53] LABS: Anion Gap 4 (5-15); BUN 11 mg/dL (7-18); BUN/Creat Ratio 11.1 RATIO (10-20); Chloride 105 mmol/L (98-107); Creatinine, Serum 0.99 mg/dL (0.55-1.02); EST Glomerular Filtration Rate 60 mL/min (>60); Est Glom Filt Rate - Afr Amer 73 mL/min (>60); Estimated Creatinine Clearance 55.86 ml/min; Glucose 101 mg/dL (74-106); Potassium 3.7 mmol/L (3.5-5.1); Sodium Level 140 mmol/L (136-145)
--- NOTE | 2020-07-16 14:35 | ED.DCSUM_ITS ---
History of Present Illness Chief Complaint: Abd Pain Narrative: 59-year-old female presenting with right rib pain that radiates around to the back. She is had this on and off. She was seen in the ER previously and had a CT abdomen pelvis and was told that she was constipated. She was given a stool softener. She continues to have intermittent pain here. She does not have nausea or vomiting. She has not had fever, cough, shortness of breath. She does state that she still having with constipation. She has been taking Percocet at home for the pain. 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 has a lot of emotional problems, family problems especially with a autistic child. Past Medical History - Allergies and Home Meds Allergies/Adverse Reactions: Allergies codeine Allergy (Verified 07/14/20 10:35) Itching latex Allergy (Verified 07/14/20 10:35) Rash tramadol Allergy (Verified 07/14/20 10:35) Hives prochlorperazine [From Compazine] Adverse Reaction (Unknown, Verified 07/14/20 10:35) Other hallucinations, paranoia lactose Adverse Reaction (Verified 07/14/20 10:35) Nausea/Vom/Diarrhea Primary Care Physician: Kenyon Thompson DO [Primary Care Provider] - Prior records reviewed: Yes Past Medical History: - - Reviewed in problem list Surgical History: cholecystectomy, hysterectomy, - - Carpal tunnel surgery BL, L knee arthroscopic surgery, now recent R ORIF samreen ankle fracture. Lives: Spouse/ Significant Other Smoking Status: Never smoker - Family History Maternal Family History: Family History (Last Reviewed 07/13/20 @ 14:14 by Breann Burns) Father Alcoholism Anxiety Depressed CVA (cerebral vascular accident) Lung cancer Mother Heart disease Hypertension Grandmother Alcoholism Sister Liver disease Alcoholism Sister Mental disorder Aunt Breast cancer Family History: Reports: Diabetes, Heart Disease Paternal Family History: Family History (Last Reviewed 07/13/20 @ 14:14 by Breann Burns) Father Alcoholism Anxiety Depressed CVA (cerebral vascular accident) Lung cancer Mother Heart disease Hypertension Grandmother Alcoholism Sister Liver disease Alcoholism Sister Mental disorder Aunt Breast cancer Family History: Reports: Diabetes, Heart Disease, Hypertension Review of Systems General: Denies: Chills, Fever, Sweats Eyes: Denies: Visual changes - bilaterally, Diplopia ENT: Reports: Bilateral ear pain Cardiovascular: Reports: Chest pain - Rib pain Respiratory: Denies: Dyspnea, Cough, Dyspnea on exertion Gastrointestinal: Reports: Constipation. Denies: Abdominal pain, Nausea, Vomiting Genitourinary: Denies: Dysuria, Hematuria Musculoskeletal: Denies: Myalgias, Arthralgias Skin: Denies: Rash, Abscess Neurological: Denies: Headache, Weakness Psych: Denies: Depression, Anxiety Physical Exam Vital Signs/Narrative: Vital Signs Temp Pulse Resp BP Pulse Ox 07/16/20 12:22 97.6 F L 77 16 144/79 H 96 General: Obese, No Acute Distress Head: Normocephalic, Atraumatic Eyes: Perrl, EOMI ENT: Moist mucous membranes, No rhinorrhea Cardiovascular: Regular rate, Regular rhythm, No murmurs Respiratory: No distress, CTA bilaterally, Chest tenderness - Right ribs tender to palpation laterally and posteriorly., - Abdomen: Soft, Nontender, Nondistended Diagnostic/Tx/Re-eval Clinical Impression(s) from Imaging Studies Chest CTA 07/16/20 13:12 IMPRESSION: Patchy bibasilar pulmonary infiltrates more prominent at the left lung base. Electronically Signed: Brady Moreira, at 14:47 EDT , Service support , Chest X-Ray 07/16/20 13:35 IMPRESSION: Bibasilar infiltrates more prominent on the left side with blunting of the left costophrenic angle. Electronically Signed: Brady Moreira, at 14:40 EDT , Service support , Laboratory Data 07/16/20 07/16/20 07/16/20 13:26 13:26 13:26 WBC 4.8 RBC 4.70 Hgb 13.3 Hct 41.8 MCV 88.9 MCH 28.3 MCHC 31.8 L RDW Std Deviation 43.8 RDW Coeff of Michel 13.6 Plt Count 196 MPV 10.5 Immature Gran % (Auto) 0.200 Neut % (Auto) 50.0 Lymph % (Auto) 32.8 [place] % (Auto) 12.9 H Eos % (Auto) 3.5 Baso % (Auto) 0.6 Absolute Neuts (auto) 2.4 Absolute Lymphs (auto) 1.58 Nucleated RBC % 0 PT 24.5 H INR 2.3 Sodium 140 Potassium 3.7 Chloride 105 Carbon Dioxide 31.0 Anion Gap 4 L BUN 11 Creatinine 0.99 Estim Creat Clear Calc 55.86 Est GFR (MDRD) Af Amer 73 Est GFR (MDRD) Non-Af 60 BUN/Creatinine Ratio 11.1 Glucose 101 Calcium 9.0 Troponin I < 0.015 - Rhythm Strip Rhythm Strip: Sinus Rhythm Rate: 70 - EKG Initial EKG Interpretation: Sinus Rhythm, No Acute Injury Pattern - Medical Decision Making Patient presents with right-sided rib pain which wraps around to the back. She states he has had this on and off for a while. She was seen recently and had a CT of the abdomen pelvis which showed improvement from her previous CT. She has Percocet at home. She has not yet had imaging of her chest. I did get a chest x-ray which was negative as well as a CTA which showed basilar infiltrates. She is not tachycardic, hypotensive, febrile, hypoxic. I counseled her this could be the source of her pain. She will be treated with a Z-Nhan. Patient also requested something for constipation because she is on narcotic pain medicine. I sent her home with a bottle of magnesium citrate. Patient amenable to this plan. She will follow-up with her PCP. Impression: 1. Pneumonia 2. Right rib pain ED Disposition - Plan for ED Patient: Disposition: Home or Assisted Living Instructions: Pneumonia, ED Constipation Prescriptions: Azithromycin 250 mg PO DAILY #4 tab Transmission Status: Pending to [id number] Referrals: Kenyon Thompson DO [Primary Care Provider] -
[2020-07-16] MEDS: 0.9% Normal Saline 1,000 ML 1000 ML IV (14:52)
[2020-07-16] MEDS: Morphine 4 MG/ML Syringe IV (14:53)
[2020-07-16] MEDS: Ondansetron 4 MG/2 ML Vial IV (14:53)
[2020-07-16 14:57] VITALS: BP 133/72; PULSE 75; RESP 16; O2SAT 95
[2020-07-16] MEDS: Azithromycin 250 MG Tablet 500 MG PO (15:46)
[2020-07-16] MEDS: Magnesium Citrate 300 ML PO (15:46)
== END 2020-07-16 15:55 | disposition home or self-care (01) ==
PROVIDERS: Emergency Provider Student in an Organized Health Care Education/Training Program; PCP Family Medicine
DX: J18.9 Pneumonia, unspecified organism (principal); K59.00 Constipation, unspecified; F41.9 Anxiety disorder, unspecified; F32.9 Major depressive disorder, single episode, unspecified; K55.069 Acute infarction of intestine, part and extent unspecified; Z80.3 Family history of malignant neoplasm of breast; Z82.3 Family history of stroke; Z82.49 Family history of ischemic heart disease and other diseases of the circulatory system; Z88.5 Allergy status to narcotic agent; Z88.8 Allergy status to other drugs, medicaments and biological substances; Z90.49 Acquired absence of other specified parts of digestive tract; Z90.710 Acquired absence of both cervix and uterus; Z91.040 Latex allergy status
CPT/HCPCS: 71045; 71275; 80048; 84484; 85025; 85610; 93005; 96361; 96374; 96375; 99281; 99285; J7030; Q9967; A4216; J2405

== ENCOUNTER 2020-08-02 07:45 | Day surgery (SDC) | payer OTHER, SELFPAY ==
[2020-07-25 10:25] VITALS: BMI 43.7
[2020-08-02] VITALS (9 sets, daily range): BP systolic 131–151; BP diastolic 77–80; PULSE 77–98; RESP 12–118; TEMP 35.9–36.6; O2SAT 96–100; BMI 42.0
--- NOTE | 2020-08-02 07:46 | RAD_ITS ---
HISTORY: INTERSTIM THERAPY 1, LEFT SIDE EXAM: Pelvis COMPARISON: CT scan of the abdomen and pelvis from June 27, 2020 FINDINGS: # of images incl. paperwork: 4 3 intraoperative images of the sacrum. The first image demonstrates a needle localization approximately the S4-S5 level. The next 2 images 10 lateral 1 a frontal demonstrate a stimulation lead been placed within the left hemisacrum. RAD/Pelvis 1 or 2 Views IMPRESSION: Intraoperative use of fluoroscopy for sacral stimulation device lead at 0539 Reported and signed by: Montez Bruner MD Electronically Signed: Montez Bruner MD at 5:38 EDT Tel , Service support ,
[2020-08-02] MEDS: Lactated Ringers 1,000 ML 100 ML IV (08:28)
[2020-08-02] MEDS: Vancomycin IV 1,000 MG/200 ML BAG 200 MG IV (08:49)
--- NOTE | 2020-08-02 10:29 | PCM.OPRPT ---
Problem List (1) Urgency of urination Status: Acute (2) Frequency of urination Status: Acute (3) Urge incontinence Status: Acute Report of Operation Date of Procedure: 08/02/20 Pre-Operative Diagnosis: Urinary urgency, frequency and urge incontinence Post-Operative Diagnosis: Same Surgery/Procedure Performed:: InterStim stage I Type of Anesthesia:: MAC Description of Procedure: The patient is a 59-year-old female who is failed conservative measures for her urinary urgency, frequency and incontinence. She underwent urodynamics and cystoscopy. She now presents for third line management with InterStim trial stage I. Informed consent was obtained including a discussion of COVID-19. Patient was taken to the operating room and placed in a prone position on the operating room table. All dependent portions of her body were appropriately padded and secured to the table. Anesthesia monitored the head, neck, airway, IV access and vital signs throughout the case. Once anesthesia was appropriate ministered the patient was prepped and draped in usual sterile fashion. Using fluoroscopic visualization, her S3 foramen was identified on the left side. The skin and tissue above this area was infiltrated with lidocaine. The needle was then inserted through the S3 foramen confirmed on fluoroscopic visualization laterally. The needle was stimulated and there was good sae response and great toe flexion. The guidewire was then passed and an skin incision was made. The skin was then dilated and the lead was inserted. There was good response on all 4 leads. The tines were then released. The pocket site was chosen and infiltrated with lidocaine. An incision was made with a knife and blunt dissection was performed with cautery for hemostatic control. The lead was tunneled into this location. The lead extension was then tunneled into this area as well. The lead was placed into the lead extension and secured using the torque wrench. The lead extension was sutured using Prolene to avoid pulling. The lead extension and lead were buried into the pocket site. The incision was closed using 3-0 interrupted Vicryl followed by 4-0 subcuticular suturing and Dermabond. The lead insertion site was closed with 4-0 Vicryl and Dermabond. At this time the temporary battery was attached to the lead extension and was secured using OpSite and tape. The patient was then awakened and taken to the recovery room in good condition. There were no complications during this procedure.
--- NOTE | 2020-08-02 10:36 | DCINST_ITS ---
Discharge Diet: No Restrictions Discharge Activity: May not drive while taking narcotic pain medications., May Not Shower, - - Incision must be kept clean and dry. Sponge bathing only. No strenuous activity, bending more than necessary. May resume sexual activity in: 3 weeks Call your doctor if your incision/area has: Continuous Slow Oozing, Sudden Increased Bleeding, Increased Pain/ Swelling, Increased Redness, Foul Smelling Discharge, Swelling at the incision site Call your doctor if you observe: Fever of 101 or Higher, Inability to urinate, Inability to have a bowel movement Suture Line Care: Avoid Pulling/Pushing, Avoid Pinching/Bending Cleanse incision/area with: Keep Dressing Clean & Dry Allergies/Adverse Reactions: Allergies codeine Allergy (Verified 07/25/20 10:20) Itching latex Allergy (Verified 07/25/20 10:20) Rash tramadol Allergy (Verified 07/25/20 10:20) Hives prochlorperazine [From Compazine] Adverse Reaction (Unknown, Verified 07/25/20 10:20) Other hallucinations, paranoia lactose Adverse Reaction (Verified 07/25/20 10:20) Nausea/Vom/Diarrhea Medications to take at Discharge amlodipine 5 mg tablet 5 mg PO DAILY #90 tab 07/11/20 pantoprazole 40 mg tablet,delayed release 40 mg PO DAILY #90 tab 07/11/20 cyclobenzaprine 10 mg tablet 5 - 10 mg PO TID PRN #30 tab 07/13/20 hydrocodone 5 mg-acetaminophen 325 mg tablet 0.5 tab PO BID PRN #10 tab 07/18/20 Rivaroxaban [Xarelto] 20 mg PO QHS 07/25/20 lorazepam 1 mg tablet 1 mg PO BID PRN #30 tab 07/31/20 Oxycodone HCl/Acetaminophen [Percocet 5/325] 1 tablet PO Q8H PRN PRN 7 Days #10 tablet 08/02/20 Smz/Tmp Ds [Bactrim Ds] 1 tab PO BID 3 Days #6 tab 08/02/20 The following prescriptions were given: Smz/Tmp Ds [Bactrim Ds] 1 tab PO BID 3 Days #6 tab Transmission Status: Pending to [id number] Oxycodone HCl/Acetaminophen [Percocet 5/325] 1 tablet PO Q8H PRN PRN 7 Days #10 tablet PRN Reason: Pain Transmission Status: Sent to [id number] Primary Care Physician: Kneyon Thompson DO [Primary Care Provider] - Test Results: Test results from this visit will be discussed in further detail at your follow- up appointment, if applicable. Please Follow Up With: Carolina Rogers MD When: call for appt next week Proposed Discharge Date: 08/02/20
== END 2020-08-02 12:55 | disposition home or self-care (01) ==
LOC: SDC 07:46 → AC 07:47
PROVIDERS: Anesthesiology; PCP Family Medicine; Referring Provider Urology; Visit Provider Urology
PROC: (CPT 64581; principal; 2020-08-02 10:00)
DX: R35.0 Frequency of micturition (principal); R35.1 Nocturia; N39.41 Urge incontinence; K21.9 Gastro-esophageal reflux disease without esophagitis; I10 Essential (primary) hypertension; I25.2 Old myocardial infarction; Z87.440 Personal history of urinary (tract) infections; Z87.891 Personal history of nicotine dependence; K58.9 Irritable bowel syndrome, unspecified
CPT/HCPCS: 00630; 64581; 72170; 76000; 87635; C1778; C9803; J7120; J2405; U0003

== ENCOUNTER 2020-08-16 08:30 | Day surgery (SDC) | payer OTHER, SELFPAY ==
[2020-08-02 08:05] VITALS: BMI 42.0
[2020-08-16] VITALS (8 sets, daily range): BP systolic 91–138; BP diastolic 63–95; PULSE 81–104; RESP 14–16; TEMP 36.2–37.2; O2SAT 93–100; BMI 43.0
[2020-08-16] MEDS: Vancomycin IV 1,000 MG/200 ML BAG 200 MG IV (09:36)
[2020-08-16] MEDS: Lactated Ringers 1,000 ML 100 ML IV (09:37)
--- NOTE | 2020-08-16 10:24 | PCM.OPRPT ---
Problem List (1) Urgency of urination Status: Acute (2) Frequency of urination Status: Acute (3) Urge incontinence Status: Acute Report of Operation Date of Procedure: 08/16/20 Pre-Operative Diagnosis: Urinary urgency, urinary frequency, urge incontinence Post-Operative Diagnosis: Same Surgery/Procedure Performed:: InterStim stage II Type of Anesthesia:: MAC Specimen's removed: None Estimated Blood Loss (mL): 3 cc Description of Procedure: The patient is a 59-year-old female who has undergone a successful stage I InterStim procedure 2 weeks ago. She now presents for definitive implantation of her IPG. Informed consent was obtained including a discussion of COVID-19. Patient was taken to the operating room and placed on the operating room table in a prone position. All dependent portions of her body were appropriately padded and secured to the table. Anesthesia monitored the head, neck, airway, IV access and vital signs throughout the case. Once anesthesia was appropriately administered the patient was prepped and draped in usual sterile fashion. Her incision over the boot was infiltrated with lidocaine. The incision was opened using hemostats and Metzenbaums. The boot was identified and brought into the surgical field. The lead was released from the boot using a torque wrench. The lead extension was removed from the field. The pocket was enlarged using sharp and blunt dissection and Bovie cautery for hemostasis. The boot was dried and inserted into the IPG and secured using the torque wrench. The IPG was placed into the pocket and assessed for impedances. There were none. The incision was closed using 3-0 interrupted sutures followed by 4-0 subcuticular and Dermabond. The patient was then awakened and taken to the recovery room in good condition. There were no complications during this procedure. Grafts/Implants Used: IPG, [employer] - Complications None - Admit VTE Documentation VTE Present on Admission: Yes VTE Mechan Device Prophylaxis: SCD's VTE Pharm Prophylaxis ordered?: No Reason prophylaxis not ordered:: Treatment Not Indicated
--- NOTE | 2020-08-16 10:29 | DCINST_ITS ---
Discharge Diet: No Restrictions Discharge Activity: May not drive while taking narcotic pain medications., May Shower - tomorrow May resume sexual activity in: 1 week Call your doctor if your incision/area has: Continuous Slow Oozing, Sudden Increased Bleeding, Increased Pain/ Swelling, Increased Redness, Foul Smelling Discharge, Swelling at the incision site Call your doctor if you observe: Fever of 101 or Higher, Inability to urinate, Inability to have a bowel movement Allergies/Adverse Reactions: Allergies codeine Allergy (Verified 07/25/20 10:20) Itching latex Allergy (Verified 07/25/20 10:20) Rash tramadol Allergy (Verified 07/25/20 10:20) Hives prochlorperazine [From Compazine] Adverse Reaction (Unknown, Verified 07/25/20 10:) Other hallucinations, paranoia lactose Adverse Reaction (Verified 07/25/20 10:20) Nausea/Vom/Diarrhea Medications to take at Discharge amlodipine 5 mg tablet 5 mg PO DAILY #90 tab 07/11/20 pantoprazole 40 mg tablet,delayed release 40 mg PO DAILY #90 tab 07/11/20 cyclobenzaprine 10 mg tablet 5 - 10 mg PO TID PRN #30 tab 07/13/20 hydrocodone 5 mg-acetaminophen 325 mg tablet 0.5 tab PO BID PRN #10 tab 07/18/20 Rivaroxaban [Xarelto] 20 mg PO QHS 07/25/20 lorazepam 1 mg tablet 1 mg PO BID PRN #30 tab 07/31/20 Oxycodone HCl/Acetaminophen [Percocet 5/325] 1 tablet PO Q8H PRN PRN 7 Days #10 tablet 08/16/20 Smz/Tmp Ds [Bactrim Ds] 1 tab PO BID 3 Days #6 tab 08/16/20 The following prescriptions were given: Smz/Tmp Ds [Bactrim Ds] 1 tab PO BID 3 Days #6 tab Transmission Status: Pending to [facility] Oxycodone HCl/Acetaminophen [Percocet 5/325] 1 tablet PO Q8H PRN PRN 7 Days #10 tablet PRN Reason: Pain Transmission Status: Sent to [facility] Primary Care Physician: Kenyon Thompson DO [Primary Care Provider] - Test Results: Test results from this visit will be discussed in further detail at your follow- up appointment, if applicable. Please Follow Up With: Carolina Rogers MD When: call for appt to be seen next week Proposed Discharge Date: 08/16/20
== END 2020-08-16 12:30 | disposition home or self-care (01) ==
LOC: SDC 08:31 → AC 08:32
PROVIDERS: PCP Family Medicine; Referring Provider Urology; Visit Provider Urology
PROC: (CPT 64590; principal; 2020-08-16 11:00)
DX: N39.41 Urge incontinence (principal); R35.1 Nocturia; R35.0 Frequency of micturition; Z87.891 Personal history of nicotine dependence; K21.9 Gastro-esophageal reflux disease without esophagitis; I51.81 Takotsubo syndrome; I25.2 Old myocardial infarction; I10 Essential (primary) hypertension; Z87.442 Personal history of urinary calculi
CPT/HCPCS: 00400; 64590; 87426; C9803; J7120; C1767; J2405

== ENCOUNTER 2020-09-18 05:25 | Day surgery (SDC) | payer OTHER, SELFPAY ==
[2020-07-17 15:59] VITALS: BMI 43.9
[2020-08-16 09:00] VITALS: BMI 43.0
[2020-09-18] VITALS (9 sets, daily range): BP systolic 103–146; BP diastolic 58–112; PULSE 72–95; RESP 16–18; TEMP 36.2–37.1; O2SAT 92–98; BMI 44.4
[2020-09-18] MEDS: Lactated Ringers 1,000 ML 100 ML IV (06:28)
--- NOTE | 2020-09-18 07:56 | PCM.OPRPT ---
Problem List (1) Stress incontinence Status: Acute (2) Intrinsic sphincter deficiency Status: Acute Report of Operation Date of Procedure: 09/18/20 Pre-Operative Diagnosis: stress urinary incontinence, intrinsic sphincter deficiency Post-Operative Diagnosis: same Surgery/Procedure Performed:: midurethral sling, cystoscopy remote medical coder: Anita Type of Anesthesia:: General Specimen's removed: none Estimated Blood Loss (mL): 5cc Description of Procedure: The patient is a 60yo female with intrinsic sphincter deficiency and stress incontinence identified on urodynamics. She now presents for surgical intervention with sling insertion. Informed consent was obtained after discussing the procedure in detail including risks and COVID-19. The patient was taken to the operating room and placed on the operating table. Anesthesia monitored the head, neck, airway, vital signs and IV access throughout the case. Once anesthesia was appropriately administered, the patient was placed into dorsal lithotomy and Trendelenburg position, and was prepped and draped in usual sterile fashion. A rojas catheter was inserted and the bladder was drained. The submucosa of the urethra was injected with 1% lidocaine for hydrostatic dissection and hemostatic control. A midline incision close to the bladder neck was made, vertical and approximately 2 cm in length. Sharp and blunt dissection was performed on either side of the urethra with care taken to avoid entrance into the urethra. The Altis sling was then inserted into the obturator complexes on each side using the trocars. The sling was positioned against the urethra in flat position. The tensioning suture was then cut. The incision was closed using running, interlocking 2-0 vicryl. The rojas was removed, and the cystoscope was inserted through the urethra under direct visualization into the urinary bladder. There were no injuries or foreign body detected. The bladder was left with small amount of fluid, the cystoscope was removed. The patient was awakened and taken to the recovery room in good condition. There were no complications during the procedure. Grafts/Implants Used: Altis midurethral sling - Complications none - Admit VTE Documentation VTE Present on Admission: Yes VTE Mechan Device Prophylaxis: SCD's VTE Pharm Prophylaxis ordered?: Yes
--- NOTE | 2020-09-18 08:00 | PCM.DC.URO ---
Discharge Diet: No Restrictions Discharge Activity: May not drive while taking narcotic pain medications., May Shower, - - no strenuous activity, no lifting over 5 pounds, no exercise, no swimming, tub bathing or hot tubs, no sexual activity May resume sexual activity in: 4 weeks Call your doctor if your incision/area has: Continuous Slow Oozing, Sudden Increased Bleeding, Increased Pain/ Swelling, Increased Redness, Foul Smelling Discharge Call your doctor if you observe: Fever of 101 or Higher, Inability to urinate, Inability to have a bowel movement, Calf discomfort, Uncontrolled pain Allergies/Adverse Reactions: Allergies codeine Allergy (Verified 09/18/20 06:08) Itching latex Allergy (Verified 09/18/20 06:08) Rash tramadol Allergy (Verified 09/18/20 06:08) Hives prochlorperazine [From Compazine] Adverse Reaction (Unknown, Verified 09/18/20 06:08) Other hallucinations, paranoia lactose Adverse Reaction (Verified 09/18/20 06:08) Nausea/Vom/Diarrhea morphine Adverse Reaction (Verified 09/18/20 06:08) PT UNSURE OF REACTION states had low oxygen saturation/difficulty waking up Medications to take at Discharge Rivaroxaban [Xarelto] 20 mg PO QHS 07/25/20 Amlodipine Besylate [Norvasc] 5 mg PO QHS 09/07/20 Docusate Sodium [Stool Softener] 100 mg PO QHS 09/07/20 Pantoprazole Sodium 40 mg PO 1800 09/07/20 Oxycodone HCl/Acetaminophen [Percocet 5/325] 1 tablet PO Q8H PRN PRN 7 Days #20 tablet 09/18/20 Smz/Tmp Ds [Bactrim Ds] 1 tab PO BID 3 Days #6 tab 09/18/20 The following prescriptions were given: Smz/Tmp Ds [Bactrim Ds] 1 tab PO BID 3 Days #6 tab Transmission Status: Pending to [facility] 1811 Oxycodone HCl/Acetaminophen [Percocet 5/325] 1 tablet PO Q8H PRN PRN 7 Days #20 tablet PRN Reason: Pain Transmission Status: Sent to [facility] 181 Primary Care Physician: Kenyon Thompson DO [Primary Care Provider] - Test Results: Test results from this visit will be discussed in further detail at your follow-up appointment, if applicable. Please Follow Up With: Carolina Rogers MD When: call office for appt Proposed Discharge Date: 09/18/20
[2020-09-18] MEDS: Lidocaine 1% /Epi 1:100 (20ml) 20 ML Vial (08:11)
[2020-09-18] MEDS: Acetaminophen 325 MG Tablet PO (11:53)
[2020-09-18] MEDS: oxyCODONE 5 MG Tablet PO (11:54)
== END 2020-09-18 12:37 | disposition home or self-care (01) ==
LOC: SDC 05:26 → AC 05:27
PROVIDERS: PCP Family Medicine; Referring Provider Urology; Visit Provider Urology
PROC: 0TJB8ZZ Inspection of Bladder, Via Natural or Artificial Opening Endoscopic (ICD-10-PCS; CPT 57288; principal; 2020-09-18 07:20)
DX: N39.3 Stress incontinence (female) (male) (principal); N36.42 Intrinsic sphincter deficiency (ISD); N95.2 Postmenopausal atrophic vaginitis; I10 Essential (primary) hypertension; I25.2 Old myocardial infarction; Z87.440 Personal history of urinary (tract) infections; Z87.891 Personal history of nicotine dependence
CPT/HCPCS: 52000; 57288; 87426; C9803; J7120; J2405

== ENCOUNTER → 2020-09-26 16:13 | Outpatient (CLI) | payer OTHER, SELFPAY ==
[2020-07-25 10:25] VITALS: BMI 43.7
[2020-09-18 06:11] VITALS: BMI 44.4
--- NOTE | 2020-09-26 16:15 | BI_ITS ---
MAMMOGRAPHY - BILATERAL SCREENING REASON FOR EXAM: Female, 60 years old. Routine annual screening examination. PERTINENT HISTORY: Aunt with breast cancer. TECHNIQUE: Digital bilateral breast boris (3D mammographic acquisition) in the CC and MLO projections. 2-D mediolateral oblique (MLO) and craniocaudad (CC) views of both breasts were obtained. CAD: Full Field Digital Mammography with Computer Added Detection was performed. COMPARISON: No comparison mammograms available at this time. If any prior films become available, an addendum to this report can be generated. FINDINGS: Breast Composition: The breasts are almost entirely fatty. There are no dominant masses or suspicious calcifications. Small benign appearing bilateral axillary lymph nodes. No other significant abnormalities are identified. BI/SCREEN MAMM (CAD) W/BORIS BILAT IMPRESSION: Negative screening mammogram. Yearly followup mammogram recommended. (A) ASSESSMENT CATEGORY: BIRADS Category 2: Benign. A letter regarding these results will be sent to the patient by the facility within 30 days. Approximately 10% of breast cancers are not detected by mammography. A normal mammogram should not delay biopsy of a clinically suspicious abnormality. [id number] Electronically Signed: Brady Moreira, at 8:17 EST , Service support ,
== END ==
PROVIDERS: PCP Family Medicine; Referring Provider Family Medicine; Visit Provider Family Medicine
DX: Z12.31 Encounter for screening mammogram for malignant neoplasm of breast (principal); Z80.3 Family history of malignant neoplasm of breast
CPT/HCPCS: 77063; 77067

== ENCOUNTER 2021-09-10 07:58 | Emergency (ER) | payer OTHER, SELFPAY ==
[2021-09-10 07:59] VITALS: BP 123/74; PULSE 97; RESP 18; TEMP 36.6; O2SAT 94; BMI 45.1
[2021-09-10 08:01] VITALS: BP 123/74; PULSE 97; RESP 18; TEMP 36.6; O2SAT 94
--- NOTE | 2021-09-10 08:37 | EDS_ITS ---
HPI History of Present Illness Chief Complaint: Nausea/Vomiting Narrative Narrative: Patient presents with nausea but no vomiting, tested positive for Covid 19 3 days ago with a home test. She states that her and her grandchild had it, but for longer. She had been taking daily test. She developed symptoms of occasional cough, and tested positive. She is nauseated but states that she cannot vomit. She denies other symptoms except for weakness. She has pain in her thoracic back from sleeping on an air mattress. She presents mainly because she is tired, does not feel well, and has had this cough and nausea. She states that she is on the list to get monoclonal antibodi es because of her elevated BMI. [facility] Medical History (Updated 09/10/21 @ 10:25 by Arsenio Meng MD) Back problem Chest pain Chronic bronchitis Chronic headaches Diarrhea Encounter for blood transfusion Fatigue Frequent UTI Gastrointestinal complaints GERD (gastroesophageal reflux disease) Hives HTN (hypertension) Hx of blood clots IBS (irritable bowel syndrome) Incontinence Kidney stones Knee pain Seasonal allergies Home Medications docusate sodium 100 mg PO QHS 09/07/20 [History Last Taken Unknown] amlodipine 5 mg tablet 5 mg PO QHS #90 tab 06/26/21 [Rx Last Taken Unknown] mupirocin 2 % topical ointment 1 applic TOPICAL BID #15 g 06/26/21 [Rx Last Taken Unknown] pantoprazole 40 mg tablet,delayed release 40 mg PO DAILY #90 tab 06/26/21 [Rx Last Taken Unknown] rivaroxaban 20 mg tablet 20 mg PO QHS #90 tab 06/26/21 [Rx Last Taken Unknown] benzonatate 200 mg capsule 200 mg PO BID-TID PRN #20 cap 09/08/21 [Rx Last Taken Unknown] ondansetron 4 mg PO Q8H PRN #10 tab 09/10/21 [Rx Last Taken Unknown] Allergy/AdvReac Type Severity Reaction Status Date / Time codeine Allergy Itching Verified 09/10/21 07:59 latex Allergy Rash Verified 09/10/21 07:59 tramadol Allergy Hives Verified 09/10/21 07:59 prochlorperazine AdvReac Unknown Other Verified 09/10/21 07:59 [From Compazine] lactose AdvReac Nausea/Vom/ Verified 09/10/21 07:59 Diarrhea morphine AdvReac PT UNSURE Verified 09/10/21 07:59 OF REACTION Family History Father Alcoholism Anxiety Depressed CVA (cerebral vascular accident) Lung cancer Mother Heart disease Hypertension Grandmother Alcoholism Sister Liver disease Alcoholism Sister Mental disorder Aunt Breast cancer Surgical History History of cholecystectomy History of extraction of renal calculus History of fracture of right ankle History of hysterectomy History of torn meniscus of left knee Social History Smoking Status: Never smoker alcohol intake: never substance use type: does not use what type of physical activity do you participate in: none ROS ROS ED ROS Narrative Constitutional: Intermittent fever, no chills. Positive malaise and fatigue. HEENT: No sore throat. No neck pain. No loss of vision. No rhinorrhea. Cardiovascular: No chest pain. No palpitations. No pedal edema. Respiratory: Intermittent cough, no shortness of breath. Abdominal: No abdominal pain. Positive nausea. No vomiting. Genitourinary: No dysuria. No hematuria. Musculoskeletal: No myalgias. No arthralgias. Pain in thoracic back secondary to sleeping on air mattress. Neurologic: No headaches. No dizziness. No lightheadedness. Skin: No rash. No change in color. Psychiatric: No depression. No anxiety. EXAM Physical Exam Narrative Exam Narrative: Afebrile. Vital signs noted. HEENT: Normocephalic. Atraumatic. PERRL, EOMI. Neck soft and supple. No point tenderness or step off. Cardiovascular: Regular rate and rhythm. No murmurs, rubs, or gallops appreciated. Respiratory: No tachypnea. Lungs clear to auscultation bilaterally. Gastrointestinal: Abdomen soft, nontender, with normoactive bowel sounds. No rebound or guarding. Neurological: Awake. Alert. Nonfocal, nonlateralizing. Skin: No rash. Normal color. No pallor. Musculoskeletal: No pedal edema. Full range of motion extremities mild tend erness diffuse thoracic back, no step-off or point tenderness. Const Vital Signs: 09/10/21 07:59 09/10/21 08:01 Temperature 97.8 F 97.8 F Temperature Source Temporal Temporal Pulse Rate 97 97 Respiratory Rate 18 18 Blood Pressure 123/74 H 123/74 H Blood Pressure Mean 90 90 Pulse Ox 94 94 Oxygen Delivery Method Room Air Room Air MDM MDM MDM Narrative Medical decision making narrative: I will check a CBC and CMP and bolused her small amount of fluid. She was administered antinausea medications in the form of ondansetron 4 mg intravenously. Her CBC shows neutropenia of 3.9, consistent with her diagnosis of COVID-19. Hemoglobin normal at 13.9. CMP is grossly unremarkable with a glucose of 107 and a normal anion gap. Chest x-ray shows a left lower lobe infiltrate, also consistent with COVID-19. She states she has been monitoring her pulse ox at home and it never got below 94 to 96% on room air. Once again, she is to receive monoclonal antibodies in the near future. She did request something for headache and body aches. She was administered Toradol 15 mg intravenously. I feel she can be discharged safely home with follow-up. Return instructions to the emergency department were reviewed. Disposition is discharged home in stable condition. She was given a prescription for 10 Zofran. Lab Data Attestation: I reviewed the patient's lab results. Labs: Laboratory Results - last 24 hr 09/10/21 09/10/21 08:55 08:55 WBC 3.9 L RBC 5.02 Hgb 13.9 Hct 43.7 MCV 87.1 MCH 27.7 MCHC 31.8 L RDW Std Deviation 45.1 H RDW Coeff of Michel 14.0 Plt Count 121 L MPV 10.6 Immature Gran % (Auto) 0.500 Neut % (Auto) 62.9 Lymph % (Auto) 20.9 Douglas % (Auto) 15.2 H Eos % (Auto) 0.0 Baso % (Auto) 0.5 Absolute Neuts (auto) 2.4 Absolute Lymphs (auto) 0.81 L Nucleated RBC % 0 Sodium 137 Potassium 4.1 Chloride 104 Carbon Dioxide 27.0 Anion Gap 6 BUN 12 Creatinine 1.00 Estim Creat Clear Calc 54.61 Est GFR (MDRD) Af Amer 72 Est GFR (MDRD) Non-Af 60 BUN/Creatinine Ratio 12.0 Glucose 107 H Calcium 8.3 L Total Bilirubin 0.30 AST 46 H ALT 46 Alkaline Phosphatase 66 Total Protein 6.7 Albumin 3.0 L Globulin 3.7 Albumin/Globulin Ratio 0.8 L Radiography Diagnostic Testing: Clinical Impression(s) from Imaging Studies Chest X-Ray 09/10/21 09:54 IMPRESSION: Patchy left lower lobe infiltrate and blunting of the left costophrenic angle. Electronically Signed: Brady Moreira MD at 10:06 EST , Service support , Discharge Plan Triage Chief Complaint: Nausea/Vomiting ED Provider: Arsenio Meng Dx/Rx/DC Orders Clinical Impression: COVID-19, Nausea, Pneumonia due to 2019-nCoV Instructions: Coronavirus Disease 2019 (COVID-19): Caring for Yourself or Others, Symptoms of COVID-19 Infection Prescriptions: New ondansetron 4 mg tablet,disintegrating 4 mg PO Q8H PRN (Reason: nausea and vomiting) Qty: 10 RF: 0 No Action amlodipine 5 mg tablet 5 mg PO QHS Qty: 90 RF: 1 pantoprazole 40 mg tablet,delayed release (DR/EC) 40 mg PO DAILY Qty: 90 RF: 2 rivaroxaban 20 mg tablet 20 mg PO QHS Qty: 90 RF: 1 mupirocin 2 % ointment 1 applic topical BID Qty: 15 RF: 1 benzonatate 200 mg capsule 200 mg PO BID-TID PRN (Reason: cough) Qty: 20 RF: 0 docusate sodium 100 MG capsule 100 mg PO QHS RF: 0 Primary Care Provider: Kenyon Thompson Referrals: Kenyon Thompson DO [Primary Care Provider] - 09/17/21 Disposition Disposition: Home, Self Care
[2021-09-10 09:07] LABS: Absolute Lymphocyte Count 0.81 X10^3/uL (0.83-4.51); Absolute Neutrophil Count 2.4 X10^3/uL (2.0-7.7); Basophil# 0.02 X10^3/uL; Basophil% 0.5 % (0-1); Hematocrit 43.7 % (37-47); Hemoglobin 13.9 g/dL (12.0-15.0); Lymphocyte # 0.81 X10^3/ul (0.83-4.51); Lymphocyte % 20.9 % (19-41); Mean Corp Hgb Conc 31.8 g/dL (32-36); Mean Corpuscular Hgb 27.7 pg (27.0-32.0); Mean Corpuscular Volume 87.1 fL (81-99); Mean Platelet Vol. 10.6 fl (6.2-12.0); Monocyte# 0.59 X10^3/uL; Monocyte% 15.2 % (0-10); NRBC Flagged by Analyzer 0 % (0-5); Neutrophil # 2.44 X10^3/uL (2.7-7.7); Neutrophil % 62.9 % (47-70); Platelet Count 121 K/mm3 (150-450); RBC Distribution Width SD 45.1 fl (35.1-43.9); Red Blood Count 5.02 M/mm3 (4.2-5.4); White Blood Count 3.9 K/mm3 (4.4-11.0)
[2021-09-10] MEDS: Ondansetron 4 MG/2 ML Vial IV ×2 (09:08→11:45)
[2021-09-10 09:25] LABS: ALB/GLOB Ratio 0.8 RATIO (0.9-2.4); AST(SGOT) 46 U/L (15-37); Alanine Aminotransfer ALT/SGPT 46 U/L (13-56); Alkaline Phosphatase 66 U/L (45-117); Anion Gap 6 (5-15); BUN 12 mg/dL (7-18); Calcium,Total 8.3 mg/dL (8.5-10.1); Chloride 104 mmol/L (98-107); EST Glomerular Filtration Rate 60 mL/min (>60); Est Glom Filt Rate - Afr Amer 72 mL/min (>60); Estimated Creatinine Clearance 54.61 ml/min; Globulin 3.7 g/dL (2.2-4.2); Glucose 107 mg/dL (74-106); Potassium 4.1 mmol/L (3.5-5.1); Protein, Total 6.7 g/dL (6.4-8.2); Sodium Level 137 mmol/L (136-145)
--- NOTE | 2021-09-10 09:54 | RAD_ITS ---
STUDY: X-RAY CHEST REASON FOR EXAM: Female, 60 years old. Cough, Covid TECHNIQUE: Single AP portable view of the chest. COMPARISON: Comparison is made with prior study 07/16/2020. FINDINGS: Patchy left lower lobe infiltrate. Blunting of the left costophrenic angle. Normal size heart. Normal mediastinum and sami. Normal visualized pulmonary arteries. Normal visualized aortic arch and descending thoracic aorta. Normal visualized thoracic spine. Normal visualized ribs, clavicles, and shoulders. There is no demonstrated abnormality of the visualized soft tissue structures of the upper abdomen. RAD/Chest 1 View (Portable) IMPRESSION: Patchy left lower lobe infiltrate and blunting of the left costophrenic angle. Electronically Signed: Brady Moreira MD at 10:06 EST , Service support ,
[2021-09-10] MEDS: Ketorolac 15 MG/ML Vial IV (11:46)
[2021-09-10 11:49] VITALS: O2SAT 94
== END 2021-09-10 11:50 | disposition home or self-care (01) ==
PROVIDERS: Emergency Provider Emergency Medicine; PCP Family Medicine
DX: U07.1 COVID-19 (principal); J12.82 Pneumonia due to coronavirus disease 2019; R11.0 Nausea; K21.9 Gastro-esophageal reflux disease without esophagitis; I10 Essential (primary) hypertension; Z79.01 Long term (current) use of anticoagulants; Z86.718 Personal history of other venous thrombosis and embolism; K58.9 Irritable bowel syndrome, unspecified
CPT/HCPCS: 71045; 80053; 85025; 99283; J7040; A4216; J2405

== ENCOUNTER 2021-09-11 15:48 | Outpatient (CLI) | payer OTHER, SELFPAY ==
[2021-09-11 16:06] VITALS: BP 133/74; PULSE 91; RESP 20; TEMP 36.8; O2SAT 92; BMI 57.9
[2021-09-11] MEDS: 0.9% Saline Lock 10 ML Syringe IV (16:24)
[2021-09-11 16:56] VITALS: BP 128/73; PULSE 77; RESP 16; TEMP 37.7; O2SAT 93
[2021-09-11 17:56] VITALS: BP 140/71; PULSE 80; RESP 16; TEMP 37.9; O2SAT 92
== END 2021-09-11 17:56 | disposition home or self-care (01) ==
LOC: MS3OUT 15:48 → MS3 15:49
PROVIDERS: PCP Family Medicine; Referring Provider Nurse Practitioner Adult Health; Visit Provider Nurse Practitioner Adult Health
DX: Z23 Encounter for immunization (principal); U07.1 COVID-19
CPT/HCPCS: J7050; M0245; Q0245; A4216

== ENCOUNTER 2021-09-13 10:56 | Emergency (ER) | payer OTHER, SELFPAY ==
[2021-09-13 10:57] VITALS: BP 125/88; PULSE 85; RESP 20; TEMP 36.4; O2SAT 93; BMI 42.3
[2021-09-13 11:11] VITALS: O2SAT 90; O2SAT 96
[2021-09-13 11:13] VITALS: BP 125/88; PULSE 77; RESP 18; TEMP 36.4; O2SAT 95
[2021-09-13 11:45] VITALS: O2SAT 90
--- NOTE | 2021-09-13 11:51 | EX.ED.VIS.UR ---
HPI HPI - URI History of Present Illness Chief Complaint: Cough Narrative Narrative: 60-year-old female presenting with cough, dyspnea, headaches, low-grade fevers. She states she tested positive for Covid on Thursday with a home test. Patient states she did not know she was sick but she checked herself because she is very paranoid about having Covid. When she tested positive she has been seen in the ER previously. She was sent home. She states that after her first visit to the ER her primary care physician ordered her a prescription for Z-Nhan. She has been taking this. She has been able to eat and drink some food and fluids but is also experiencing nausea. She is making urine and stool. She notes that her lowest pulse ox when ambulating is 89 at home. She states he did not know if she was supposed to check it when she was walking and had only been checking it while she was sitting. She has no hypoxia when sitting. Patient does not have any chest pain but does have a painful cough and admits to blood tingeing sputum. There is no hematemesis. Patient was not vaccinated for COVID-19. She did receive monoclonal antibodies 2 days ago. ROS ROS ED Constitutional Constitutional ED: Reports chills and fever(s) Eyes Eyes: Denies blurry vision or diplopia ENT ENT ED: Reports rhinorrhea Cardiovascular Cardiovascular: Denies chest pain or palpitations Respiratory/Chest Respiratory/Chest: Reports dyspnea Gastrointestinal Gastrointestinal: Reports nausea and vomiting; Denies abdominal pain, constipation or diarrhea Genitourinary Genitourinary ED: Denies dysuria or hematuria Musculoskeletal Musculoskeletal: Reports myalgias; Denies arthralgias or neck pain Integumentary Denies abscess or rash Neurologic Neurologic: Reports headache(s); Denies paresthesias or weakness [facility] Medical History Back problem Chest pain Chronic bronchitis Chronic headaches Diarrhea Encounter for blood transfusion Fatigue Frequent UTI Gastrointestinal complaints GERD (gastroesophageal reflux disease) Hives HTN (hypertension) Hx of blood clots IBS (irritable bowel syndrome) Incontinence Kidney stones Knee pain Seasonal allergies Home Medications docusate sodium 100 mg PO QHS 09/07/20 [History Last Taken Unknown] amlodipine 5 mg tablet 5 mg PO QHS #90 tab 06/26/21 [Rx Last Taken Unknown] pantoprazole 40 mg tablet,delayed release 40 mg PO DAILY #90 tab 06/26/21 [Rx Last Taken Unknown] rivaroxaban 20 mg tablet 20 mg PO QHS #90 tab 06/26/21 [Rx Last Taken Unknown] benzonatate 200 mg capsule 200 mg PO BID-TID PRN #20 cap 09/08/21 [Rx Last Taken Unknown] azithromycin 250 mg tablet See Rx Instructions PO .COMPLEX #6 tab 09/10/21 [Rx Last Taken Unknown] ondansetron 4 mg PO Q8H PRN #10 tab 09/10/21 [Rx Last Taken Unknown] Allergy/AdvReac Type Severity Reaction Status Date / Time codeine Allergy Itching Verified 09/13/21 11:00 latex Allergy Rash Verified 09/13/21 11:00 tramadol Allergy Hives Verified 09/13/21 11:00 prochlorperazine AdvReac Unknown Other Verified 09/13/21 11:00 [From Compazine] lactose AdvReac Nausea/Vom/ Verified 09/13/21 11:00 Diarrhea morphine AdvReac PT UNSURE Verified 09/13/21 11:00 OF REACTION Family History Father Alcoholism Anxiety Depressed CVA (cerebral vascular accident) Lung cancer Mother Heart disease Hypertension Grandmother Alcoholism Sister Liver disease Alcoholism Sister Mental disorder Aunt Breast cancer Surgical History History of cholecystectomy History of extraction of renal calculus History of fracture of right ankle History of hysterectomy History of torn meniscus of left knee Social History Smoking Status: Never smoker alcohol intake: never substance use type: does not use what type of physical activity do you participate in: none EXAM Physical Exam Const Vital Signs: 09/13/21 10:57 09/13/21 11:11 09/13/21 11:13 Temperature 97.6 F L 97.6 F L Temperature Source Temporal Temporal Pulse Rate 85 77 Respiratory Rate 20 H 18 Respiratory Effort Short of Breath Labored Respiratory Depth Normal Respiratory Pattern Normal Blood Pressure 125/88 H 125/88 H Blood Pressure Mean 100 100 Pulse Ox 93 95 Oxygen Delivery Method Room Air Nasal Cannula Nasal Cannula Oxygen Flow Rate (L/min) 2 2 Positive obese General Appearance ED: NAD; Negative for pallor Nutritional Appearance: obese HEENT Reports moist mucous membranes normocephalic and atraumatic Eyes PERRL and EOMs intact bilaterally Neck no lymphadenopathy, supple and no meningeal signs Resp normal respiratory effort and clear to auscultation bilaterally Cardio Rate: regular rate Rhythm: regular rhythm GI non-distended Palpation: soft Extremity normal to inspection and full ROM General Extremety ED: Negative for cyanosis or tenderness General Extremity: Negative for cyanosis Neuro oriented x3, CN's II-XII intact bilaterally and no sensory deficits noted Sensorium / Orientation: alert Motor Exam: strength 5/5 throughout Psych mental status grossly normal Mood & Affect: tearful Skin General Skin Exam: Negative for jaundice or pallor Rashes: No no rashes MDM MDM MDM Narrative Medical decision making narrative: Patient presenting with cough, improving fever and chills, hypoxia which she noticed at home. She tested positive for Covid Thursday before having symptoms. Since then she has been referred for monoclonal antibodies. She noted that she was 89% at home after ambulating. Here she drops to 87 with ambulating. She not having chest pain. Otherwise her vitals are stable. Patient is anticoagulated so I have low suspicion for PE. I did discuss with her that she may need oxygen therapy for home. She is ambulated and able to be discharged home with 2 L of oxygen. I will start her on dexamethasone therapy. Patient will return for new or worsening symptoms. Impression: 1. COVID-19 pneumonitis Discharge Plan Triage Chief Complaint: Cough ED Provider: Melecio Gunn Dx/Rx/DC Orders Prescriptions: No Action amlodipine 5 mg tablet 5 mg PO QHS Qty: 90 RF: 1 pantoprazole 40 mg tablet,delayed release (DR/EC) 40 mg PO DAILY Qty: 90 RF: 2 rivaroxaban 20 mg tablet 20 mg PO QHS Qty: 90 RF: 1 benzonatate 200 mg capsule 200 mg PO BID-TID PRN (Reason: cough) Qty: 20 RF: 0 docusate sodium 100 MG capsule 100 mg PO QHS RF: 0 ondansetron 4 mg tablet,disintegrating 4 mg PO Q8H PRN (Reason: nausea and vomiting) Qty: 10 RF: 0 azithromycin 250 mg tablet See Rx Instructions PO .COMPLEX Qty: 6 RF: 0 Primary Care Provider: Kenyon Thompson
[2021-09-13 12:00] VITALS: O2SAT 96
[2021-09-13] MEDS: Ondansetron 4 MG/2 ML Vial IV (12:12)
--- NOTE | 2021-09-13 13:25 | CM.ED ---
SOCIAL WORK Referral Source: Dr. Gunn Reason for Consult: COVID-19 positive, requires home O2 Patient in agreement to have home O2 set up through [employer]. Patient lives home with who has also been diagnosed with COVID-19. Clinical information faxed to [email or web address] along with [employer]. Portable tank provided to patient. RT to review O2 with patient. Spoke with Niesha with [email or web address] to update. E-mail sent to for follow up with patient. Plan: Patient discharged home on 2L O2 set up through [facility] [place] Kari Magallanes MSW, INVESTIGATIONS MANAGER
[2021-09-13 14:09] VITALS: O2SAT 97
--- NOTE | 2021-09-16 16:49 | CASEMGMT ---
[facility] ED COVID Home O2 Follow-up: This RN NOMAN attempted to contact pt via phone. No answer received and pt's voicemail box is not set up so unable to leave a message. Nash Wynn RN CM
--- NOTE | 2021-09-17 19:40 | CASEMGMT ---
[facility] ED COVID Home O2 Follow-up: This [facility] contacted pt in follow-up to ED home O2 set-up. Pt states she is doing better as her headache, nausea and fever have resolved. Pt states she continues to expectorate blood tinged sputum but it is more burgandy colored than bright red. Pt states she continues to wear her home O2 at 3l/min and reports her PO to be 97%. Pt reports that her electric went out the other night and she was able to switch to her tank. MICHAEL responded promptly and provided additional O2 tanks and her power has since been restored. Pt's daughter and granddaughter have been providing meals and assisting as able. Pt reports her is currently a patient at [facility] being treated for COVID also. Pt states she has been in contact with Dr. Thompson. Reviewed need to remain in contact with Dr. Thompson for O2 weaning and other minor issues with return to ED warranted for unresolved hypoxia and SOB. Pt expressed understanding. Pt states she continues to take her prescription as instructed including the steroid and antibiotic. Pt denies any further questions or concerns at this time. Nash Wynn RN CM
--- NOTE | 2021-09-19 17:55 | CASEMGMT ---
RN [facility] ED COVID Home O2 Follow-up: This RN CM contacted pt in follow-up. Pt states she is doing much better and denied any questions or concerns. States she has been taking her O2 off intermittently for 3 minutes at a time per her PCP's instructions and reports her PO to be 94% on RA. Pt states her just returned home from the hospital and she was anxious about caring for him. Reassurance given, discharge instructions reviewed, and pt became more calm. Pt denies any further questions or concerns. Nash Wynn RN
== END 2021-09-13 14:10 | disposition home or self-care (01) ==
PROVIDERS: Emergency Provider Student in an Organized Health Care Education/Training Program; PCP Family Medicine
DX: U07.1 COVID-19 (principal); J12.82 Pneumonia due to coronavirus disease 2019; E66.9 Obesity, unspecified; K21.9 Gastro-esophageal reflux disease without esophagitis; I10 Essential (primary) hypertension; Z79.01 Long term (current) use of anticoagulants
CPT/HCPCS: 96374; 99283; A4216; J2405

== ENCOUNTER 2021-12-02 15:25 | Outpatient (CLI) | payer OTHER, SELFPAY ==
--- NOTE | 2021-12-02 15:29 | BI_ITS ---
MAMMOGRAPHY - BILATERAL SCREENING REASON FOR EXAM: Female, 61 years old. Routine annual screening examination. PERTINENT HISTORY: Aunt with breast cancer. TECHNIQUE: Digital bilateral breast boris (3D mammographic acquisition) in the CC and MLO projections. 2-D mediolateral oblique (MLO) and craniocaudad (CC) views of both breasts were obtained. CAD: Full Field Digital Mammography with Computer Added Detection was performed. COMPARISON: Comparison is made with prior study dated 09/26/2020. FINDINGS: Breast Composition: The breasts are almost entirely fatty. There are no dominant masses or suspicious calcifications. Stable small benign-appearing bilateral axillary lymph nodes. No other significant abnormalities are identified. There has been no significant change since the prior study. BI/SCRN MAMM (CAD)W/BORIS BILAT IMPRESSION: Stable bilateral screening mammogram. Yearly follow-up mammogram recommended. (A) ASSESSMENT CATEGORY: BIRADS Category 2: Benign. A letter regarding these results will be sent to the patient by the facility within 30 days. Approximately 10% of breast cancers are not detected by mammography. A normal mammogram should not delay biopsy of a clinically suspicious abnormality. [id number] Electronically Signed: Brady Moreira MD at 8:33 EST ,
== END 2021-12-02 23:59 | disposition home or self-care (01) ==
LOC: OPBI 15:26
PROVIDERS: PCP Family Medicine; Visit Provider Family Medicine
DX: Z12.31 Encounter for screening mammogram for malignant neoplasm of breast (principal); Z80.3 Family history of malignant neoplasm of breast
CPT/HCPCS: 77063; 77067

== ENCOUNTER 2022-01-13 02:12 | Emergency (ER) | payer OTHER, SELFPAY ==
[2022-01-13 02:13] VITALS: PULSE 102; RESP 17; TEMP 36.6; O2SAT 98; BMI 43.6
[2022-01-13 02:20] VITALS: O2SAT 98
--- NOTE | 2022-01-13 02:28 | CT_ITS ---
STUDY: CT SOFT TISSUE NECK WITH CONTRAST REASON FOR EXAM: Female, 61 years old. pain RADIATION DOSAGE (If Supplied By Facility): CTDIvol = ( 19.47 ) mGy, DLP = ( 603.16 ) mGycm TECHNIQUE: The patient was scanned in a multi-detector CT scanner. High resolution transaxial imaging was performed following intravenous administration of IV 75mL Isovue-300. Sagittal and coronal images were reconstructed. Individualized dose optimization techniques were used for this CT. COMPARISON: CT chest 07/16/2020. LIMITATIONS: None. NASO/TIFFANIE/HYPOPHARYNX: Normal. EPIGLOTTIS/ARYEPIGLOTTIC FOLDS: Normal. CAROTID SPACE: Normal. SAND FILLER SPACE: Normal. PARAPHARYNGEAL SPACES: Normal. RETROPHARYNGEAL/PREVERTEBRAL SOFT TISSUES: Normal. SALIVARY GLANDS: Normal. LARYNX: Normal. TRACHEA: Normal. THYROID GLAND: Hypoattenuating thyroid nodularity, too small to characterize.. LYMPH NODES: Normal. BONES/SOFT TISSUES: Normal. OTHER: Bilobed proximal basilar artery aneurysms, the posterior aneurysm measuring 10 x 9 mm and the anterior aneurysm measuring 9 x 8 mm. Groundglass opacities in the visualized lung hobson, left greater than right. CONCLUSION: 1. 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 2. Groundglass opacities in the visualized lung hobson, may be due to expiratory phase or infectious/inflammatory changes. Electronically Signed: Jared Villafuerte MD at 4:23 EDT , CT/Soft Tissue Neck WITH Contrast
--- NOTE | 2022-01-13 02:29 | EDS_ITS ---
HPI History of Present Illness Chief Complaint: Cough Narrative Narrative: Patient presents with hemoptysis. This started about an hour and a half ago. She has no difficulty breathing. She is denying any kind of vomiting nausea or abdominal pain. Cough is dry and when she coughs she brings up bright red blood. She feels like there is something in her throat. She has no lower extremity edema. She is on Xarelto for prior mesenteric thrombosis, she does not have any abdominal pain as mentioned above. She has no chest pain or shortness of breath. She has no recent weight loss or night sweats. Up until about an hour ago she had no cough. [facility] Medical History (Updated 01/13/22 @ 04:[address] Roly Han MD) Back problem Chest pain Chronic bronchitis Chronic headaches Diarrhea Encounter for blood transfusion Fatigue Frequent UTI Gastrointestinal complaints GERD (gastroesophageal reflux disease) Hives HTN (hypertension) Hx of blood clots IBS (irritable bowel syndrome) Incontinence Kidney stones Knee pain Seasonal allergies Home Medications docusate sodium 100 mg PO QHS 09/07/20 [History Last Taken Unknown] amlodipine 5 mg tablet 5 mg PO QHS #90 tab 06/26/21 [Rx Last Taken Unknown] pantoprazole 40 mg tablet,delayed release 40 mg PO DAILY #90 tab 06/26/21 [Rx Last Taken Unknown] rivaroxaban 20 mg tablet 20 mg PO QHS #90 tab 06/26/21 [Rx Last Taken Unknown] Allergy/AdvReac Type Severity Reaction Status Date / Time codeine Allergy Itching Verified 01/13/22 02:18 latex Allergy Rash Verified 01/13/22 02:18 tramadol Allergy Hives Verified 01/13/22 02:18 prochlorperazine AdvReac Unknown Other Verified 01/13/22 02:18 [From Compazine] lactose AdvReac Nausea/Vom/ Verified 01/13/22 02:18 Diarrhea morphine AdvReac PT UNSURE Verified 01/13/22 02:18 OF REACTION Family History Father Alcoholism Anxiety Depressed CVA (cerebral vascular accident) Lung cancer Mother Heart disease Hypertension Grandmother Alcoholism Sister Liver disease Alcoholism Sister Mental disorder Aunt Breast cancer Surgical History History of cholecystectomy History of extraction of renal calculus History of fracture of right ankle History of hysterectomy History of torn meniscus of left knee Social History Smoking Status: Never smoker alcohol intake: never substance use type: does not use what type of physical activity do you participate in: none ROS ROS ED ROS Narrative Past medical history: Reviewed, significant for prior hypercoagulable state including mesenteric thrombosis, she is on Xarelto. She has a history of GERD, obesity, chronic bronchitis. Medications: Reviewed Social history: Noncontributory Review of systems: All systems negative except as indicated General: No fever Eyes: No visual changes ENT: As in HPI Neck: No neck pain Cardiovascular: No chest pain Respiratory: No shortness of breath. Cough as in HPI Gastrointestinal: No abdominal pain, nausea vomiting or diarrhea. No dark stools or bright red blood per rectum Genitourinary: No dysuria Musculoskeletal: Denies myalgias no difficulty with ambulation Skin: No rash Neurological: No memory loss, confusion or any focal weakness Psych: No recent behavioral changes Hematologic: She is prone to easy bleeding secondary to anticoagulants EXAM Physical Exam Narrative Exam Narrative: Physical exam General: Well nourished, Well developed, she appears somewhat anxious but she does not appear in any distress Head: Normocephalic, Atraumatic Eyes: Conjunctiva not pale ENT: Moist mucous membranes. I do not see any posterior erythema. There is no signs of epistaxis Neck: Supple, Nontender, No lymphadenopathy. I do not palpate any mass. Cardiovascular: Regular rate, Regular rhythm Respiratory: No distress, CTA bilaterally Abdomen: Soft, Nontender, Nondistended Back: Nontender, Normal Inspection. Negative for: CVA tenderness Extremities: Nontender, No edema Skin: Normal color, No rash. No pallor Neurological: Alert, Normal Strength, Normal Sensation Psychological: Normal affect Const Vital Signs: 01/13/22 02:13 01/13/22 02:20 Temperature 97.8 F Temperature Source Temporal Pulse Rate 102 H Respiratory Rate 17 Respiratory Effort Normal Respiratory Depth Normal Respiratory Pattern Normal Pulse Ox 98 Oxygen Delivery Method Room Air Room Air MDM MDM MDM Narrative Medical decision making narrative: Patient's chest x-ray is unremarkable there is no mass in the throat. Incidentally there are some aneurysms which I will follow the patient up with neurosurgery, otherwise I will refer to pulmonology for the hemoptysis, she was observed in the ED she had no further hemoptysis. She has a history of bronchitis this may be the source of the hemoptysis. If anything changes or worsens she is to return.. Lab Data Labs: Laboratory Results - last 24 hr 01/13/22 01/13/22 01/13/22 02:50 02:50 02:50 WBC 6.0 RBC 4.68 Hgb 13.1 Hct 41.1 MCV 87.8 MCH 28.0 MCHC 31.9 L RDW Std Deviation 42.4 RDW Coeff of Michel 13.2 Plt Count 211 MPV 10.5 Immature Gran % (Auto) 0.500 Neut % (Auto) 48.4 Lymph % (Auto) 36.7 [place] % (Auto) 10.3 H Eos % (Auto) 3.3 Baso % (Auto) 0.8 Absolute Neuts (auto) 2.9 Absolute Lymphs (auto) 2.20 Nucleated RBC % 0 PT 19.4 H INR 1.7 APTT 45.6 H Sodium 139 Potassium 3.8 Chloride 106 Carbon Dioxide 28.0 Anion Gap 5 BUN 18 Creatinine 0.88 Estim Creat Clear Calc 63.63 Est GFR (MDRD) Af Amer 83 Est GFR (MDRD) Non-Af 69 BUN/Creatinine Ratio 20.4 H Glucose 126 H Calcium 8.3 L Total Bilirubin 0.20 AST 12 L ALT 24 Alkaline Phosphatase 71 Total Protein 6.5 Albumin 3.3 Globulin 3.2 Albumin/Globulin Ratio 1.0 Radiography Diagnostic Testing: Clinical Impression(s) from Imaging Studies Soft Tissue Neck CT 01/13/22 02:28 Chest X-Ray 01/13/22 03:40 IMPRESSION: No acute cardiopulmonary disease. Electronically Signed: Jared Villafuerte MD at 4:14 EDT , Discharge Plan Triage Chief Complaint: Cough ED Provider: Roly Han Dx/Rx/DC Orders Clinical Impression: Hemoptysis, Brain aneurysm Instructions: ED Hemoptysis Prescriptions: No Action amlodipine 5 mg tablet 5 mg PO QHS Qty: 90 RF: 1 pantoprazole 40 mg tablet,delayed release (DR/EC) 40 mg PO DAILY Qty: 90 RF: 2 rivaroxaban 20 mg tablet 20 mg PO QHS Qty: 90 RF: 1 docusate sodium 100 MG capsule 100 mg PO QHS RF: 0 Primary Care Provider: Kenyon Thompson Referrals: Kenyon Thompson DO [Primary Care Provider] - Roni Thompson DO [STAFF PHYSICIAN] - 2 Days Activity Restrictions/Additional Instructions: Follow up with [facility] for the incidental aneurysms found on the CAT scan [phone] [place] [address] Disposition Disposition: Home, Self Care
[2022-01-13 03:04] LABS: Absolute Neutrophil Count 2.9 X10^3/uL (2.0-7.7); Basophil# 0.05 X10^3/uL; Basophil% 0.8 % (0-1); Eosinophils% 3.3 % (0-5); Hematocrit 41.1 % (37-47); Hemoglobin 13.1 g/dL (12.0-15.0); Lymphocyte % 36.7 % (19-41); Mean Corp Hgb Conc 31.9 g/dL (32-36); Mean Corpuscular Volume 87.8 fL (81-99); Mean Platelet Vol. 10.5 fl (6.2-12.0); Monocyte# 0.62 X10^3/uL; Monocyte% 10.3 % (0-10); NRBC Flagged by Analyzer 0 % (0-5); Neutrophil % 48.4 % (47-70); Platelet Count 211 K/mm3 (150-450); RBC Distribution Width CV 13.2 % (11.6-14.6); RBC Distribution Width SD 42.4 fl (35.1-43.9); Red Blood Count 4.68 M/mm3 (4.2-5.4)
[2022-01-13 03:19] LABS: International Normalized Ratio 1.7; Prothrombin Time (Protime)PT. 19.4 SECONDS (11.7-14.9)
[2022-01-13 03:25] LABS: AST(SGOT) 12 U/L (15-37); Alanine Aminotransfer ALT/SGPT 24 U/L (13-56); Albumin, Serum 3.3 g/dL (3.2-5.0); Alkaline Phosphatase 71 U/L (45-117); Anion Gap 5 (5-15); BUN 18 mg/dL (7-18); BUN/Creat Ratio 20.4 RATIO (10-20); Calcium,Total 8.3 mg/dL (8.5-10.1); Chloride 106 mmol/L (98-107); Creatinine, Serum 0.88 mg/dL (0.55-1.02); EST Glomerular Filtration Rate 69 mL/min (>60); Est Glom Filt Rate - Afr Amer 83 mL/min (>60); Estimated Creatinine Clearance 63.63 ml/min; Globulin 3.2 g/dL (2.2-4.2); Glucose 126 mg/dL (74-106); Potassium 3.8 mmol/L (3.5-5.1); Protein, Total 6.5 g/dL (6.4-8.2); Sodium Level 139 mmol/L (136-145)
[2022-01-13 03:27] LABS: Partial Thromboplast Time 45.6 Seconds (24.1-36.2)
--- NOTE | 2022-01-13 03:40 | RAD_ITS ---
INDICATION: cough EXAMINATION/TECHNIQUE: X-RAY - XR Chest 1 View COMPARISON: 09/10/2021 FINDINGS: LINES/DEVICES: None. LUNGS: No consolidation, edema or effusion. No pneumothorax. MEDIASTINUM AND CARDIOVASCULAR STRUCTURES: Cardiac silhouette not enlarged. Central airways and mediastinal contour are unremarkable. BONES AND SOFT TISSUES: Unremarkable. RAD/Chest 1 View (Portable) IMPRESSION: No acute cardiopulmonary disease. Electronically Signed: Jared Villafuerte MD at 4:14 EDT ,
[2022-01-13 04:41] VITALS: RESP 17
[2022-01-13 04:48] VITALS: PULSE 79; RESP 20; O2SAT 97
--- NOTE | 2022-01-13 05:03 | ED.RN ---
ATTEMPTED TO D/C PT AND SHE EXPRESSED CONCERNS ABOUT NOT FULLY UNDERSTANDING HER DIAGNOSIS OR WHAT SHE SHOULD DO IF SYMPTOMS RETURN. DR DUKE MADE AWARE AND HE FURTHER EXPLAINED THINGS TO HER. WHEN PT LEFT SHE STATED SHE HAD A BETTER UNDERSTANDING AND SHE WAS GRATEFUL FOR THE INFORMATION.
== END 2022-01-13 05:06 | disposition home or self-care (01) ==
PROVIDERS: Emergency Provider Emergency Medicine; PCP Family Medicine; Visit Provider Emergency Medicine
DX: R04.2 Hemoptysis (principal); I67.1 Cerebral aneurysm, nonruptured; I10 Essential (primary) hypertension; K21.9 Gastro-esophageal reflux disease without esophagitis
CPT/HCPCS: 70491; 71045; 80053; 85025; 85610; 85730; 99284; Q9967

== ENCOUNTER → 2022-02-14 | Outpatient (CLI) | payer OTHER, SELFPAY ==
--- NOTE | 2022-02-14 08:04 | CT_ITS ---
STUDY: CT CHEST WITH CONTRAST REASON FOR EXAM: Female, 61 years old. Hemoptysis RADIATION DOSAGE (If Supplied By Facility): CTDIvol = ( 16.06 ) mGy, DLP = ( 646.58 ) mGycm TECHNIQUE: Transaxial imaging was performed following intravenous administration of IV 100mL Isovue-300. Multiplanar coronal and sagittal images were reformatted. Individualized dose optimization techniques were used for this CT. COMPARISON: No relevant priors. FINDINGS: CHEST Mild degree of heterogeneity of the thyroid gland. Minimal increased linear markings at the lung bases suggests a mild degree of scarring. There is no demonstrated pleural abnormality. No significant coronary calcification is seen. Normal mediastinum. Normal hilar regions. Normal unenhanced pulmonary arteries. There is atherosclerotic calcification of the aortic arch . There are multi-level degenerative changes of the thoracic spine. The patient is status post cholecystectomy. CT/Chest WITH Contrast IMPRESSION: Mild degree of increased markings at the lung bases suggestive of scarring. Electronically Signed: Brady Moreira MD at 9:12 EDT ,
[2022-02-14 08:15] LABS: CREATININE FINGERSTICK 1.1 mg/dL (0.55-1.02)
== END | disposition home or self-care (01) ==
LOC: CT 08:02
PROVIDERS: PCP Family Medicine; Referring Provider Internal Medicine Critical Care Medicine; Visit Provider Internal Medicine Critical Care Medicine
DX: Z01.812 Encounter for preprocedural laboratory examination (principal); R04.2 Hemoptysis
CPT/HCPCS: 71260; Q9967

== ENCOUNTER 2022-02-17 06:59 | Emergency (ER) | payer OTHER, SELFPAY ==
[2022-02-17 06:59] VITALS: BP 161/70; PULSE 83; RESP 17; TEMP 36.8; O2SAT 95; BMI 43.9
--- NOTE | 2022-02-17 07:57 | CT_ITS ---
STUDY: CT BRAIN WITHOUT CONTRAST REASON FOR EXAM: Female, 61 years old. Injury/Pain RADIATION DOSAGE (If Supplied By Facility): CTDIvol = ( 44.99 ) mGy, DLP = ( 796.11 ) mGycm TECHNIQUE: Transaxial CT imaging of the brain was performed without administration of intravenous contrast material. Individualized dose optimization techniques were used for this CT. COMPARISON: Comparison is made with prior study dated 04/26/2019. FINDINGS: Normal soft tissue structures. Normal calvarium. Normal size ventricles and extra-axial spaces for the patient''s age. Normal white matter tracts of the cerebral hemispheres. Normal basal ganglia and thalami. Normal brainstem. Normal cerebellum. There is no intracranial hemorrhage. There are no findings of an acute ischemic infarction. Normal visualized paranasal sinuses. CT/Brain/Head without Contrast IMPRESSION: Normal unenhanced CT scan of the brain. Electronically Signed: Brady Moreira MD at 8:33 EDT ,
[2022-02-17] MEDS: LORazepam 2 MG/ML Syringe 1 MG IV (08:12)
--- NOTE | 2022-02-17 08:27 | RAD_ITS ---
STUDY: X-RAY - LUMBAR SPINE REASON FOR EXAM: Female, 61 years old. Pain following a fall. TECHNIQUE: 3 view(s) of the lumbar spine were obtained. COMPARISON: None FINDINGS: Normal lumbar lordosis. There is a levoscoliosis of the lumbar spine. Minimal retrolisthesis of L3 on L4. There is multilevel endplate spondylosis of the lumbar vertebrae. There is multi-level degenerative disc disease with multi-level disc space narrowing. There is atherosclerotic calcification of the abdominal aorta without a demonstrated aneurysm. A left sided InterStim device is seen. RAD/Lumbar Spine 2 or 3 Views IMPRESSION: Degenerative changes of the spine, as detailed above. Mild levoscoliosis. Minimal retrolisthesis of L3 on L4. Electronically Signed: Brady Moreira MD at 8:41 EDT ,
--- NOTE | 2022-02-17 09:04 | ED.VIS.FALL ---
HPI HPI - Fall History of Present Illness Chief Complaint: Fall Informant: patient Occured/Mechanism Occurred: Today Mechanism/Context: Yes same level fall and Yes slip Pain/Injury Pain Location: head, back and upper extremity Quality of Pain: Dull and Burning Worsened by: Palpation Relieved by: Nothing Associated Symptoms Associated Symptoms: Negative for Parasthesias, Weakness, Loss of function, Inability to ambulate, Loss of consciousness and Amnesia Narrative Narrative: Patient presents after a fall that occurred today. Patient slipped on wet floor and fell backwards. Patient hit her low back on the floor. Patient hit her head on a wooden microwave stand. Patient denies any loss of consciousness. Patient states her pain is worse whenever she touches the area or lays her head back. Patient denies any radiation of the pain. Patient denies any paresthesias or weakness. Patient was able to ambulate after the fall. Patient denies any other injuries. [facility] Medical History (Updated 02/17/22 @ 09:[address] Pj Ott, DO) Back problem Chest pain Chronic bronchitis Chronic headaches Diarrhea Encounter for blood transfusion Fatigue Frequent UTI Gastrointestinal complaints GERD (gastroesophageal reflux disease) Hives HTN (hypertension) Hx of blood clots IBS (irritable bowel syndrome) Incontinence Kidney stones Knee pain Seasonal allergies Home Medications pantoprazole 40 mg tablet,delayed release 40 mg PO DAILY #90 tab 06/26/21 [Rx Last Taken Unknown] amlodipine 5 mg tablet 5 mg PO DAILY tab 01/20/22 [History Last Taken Unknown] docusate sodium 100 mg capsule 100 mg PO DAILY cap 01/20/22 [History Last Taken Unknown] rivaroxaban 20 mg tablet 20 mg PO DAILY tab 01/20/22 [History Last Taken Unknown] Allergy/AdvReac Type Severity Reaction Status Date / Time codeine Allergy Itching Verified 02/17/22 07:02 latex Allergy Rash Verified 02/17/22 07:02 tramadol Allergy Hives Verified 02/17/22 07:02 prochlorperazine AdvReac Unknown Other Verified 02/17/22 07:02 [From Compazine] lactose AdvReac Nausea/Vom/ Verified 02/17/22 07:02 Diarrhea morphine AdvReac PT UNSURE Verified 02/17/22 07:02 OF REACTION Family History Father Alcoholism Anxiety Depressed CVA (cerebral vascular accident) Lung cancer Mother Heart disease Hypertension Grandmother Alcoholism Sister Liver disease Alcoholism Sister Mental disorder Aunt Breast cancer Surgical History History of cholecystectomy History of extraction of renal calculus History of fracture of right ankle History of hysterectomy History of torn meniscus of left knee Social History Smoking Status: Never smoker alcohol intake: never substance use type: does not use what type of physical activity do you participate in: none ROS ROS ED Constitutional Constitutional ED: Denies chills or fever(s) Eyes Eyes: Denies blurry vision or change in vision ENT ENT ED: Denies rhinorrhea or sore throat Cardiovascular Cardiovascular: Denies chest pain or palpitations Respiratory/Chest Respiratory/Chest: Denies cough or dyspnea Gastrointestinal Gastrointestinal: Denies nausea or vomiting Genitourinary Genitourinary ED: Denies dysuria or hematuria Musculoskeletal Musculoskeletal: Reports back pain; Denies neck pain Integumentary Denies abscess or rash Neurologic Neurologic: Reports headache(s); Denies weakness Allergic/Immunologic Allergic/Immunologic ED: Denies mouth swelling or urticaria EXAM Physical Exam Const Vital Signs: 02/17/22 06:59 02/17/22 07:12 Temperature 98.2 F Temperature Source Oral Pulse Rate 83 Respiratory Rate 17 Respiratory Effort Normal Non-Labored Respiratory Depth Normal Respiratory Pattern Normal Blood Pressure 161/70 H Blood Pressure Mean 100 Pulse Ox 95 Oxygen Delivery Method Room Air Positive well nourished and well developed General Appearance ED: well developed HEENT Reports moist mucous membranes Neck supple and no JVD Resp normal respiratory effort and clear to auscultation bilaterally Cardio regular rate, regular rhythm and no murmurs GI normal to inspection, nondistended, normoactive bowel sounds and non-tender Palpation: soft Back/Spine Back/Spine Narrative: There is tenderness over the right lumbar paraspinal muscles. There is no midline tenderness. No bony crepitance or step-off. There is no edema or ecchymosis. Straight leg raises were negative bilaterally. Thoracic Spine / Upper Back: pain with ROM Lumbar Spine / Lower Back: straight leg raise negative bilaterally Extremity normal to inspection General Extremety ED: Negative for edema or tenderness General Extremity: Negative for edema Neuro oriented x3, CN's II-XII intact bilaterally and no sensory deficits noted Sensorium / Orientation: alert Motor Exam: strength 5/5 throughout Psych mental status grossly normal Skin no rashes or lesions noted MDM MDM MDM Narrative Medical decision making narrative: CT scan of the brain was obtained. There is no acute intracranial abnormality. This was interpreted by the radiologist and reviewed by myself. X-rays of the lumbar spine were obtained. There are 3 views. On my interpretation, there is no acute fracture. There is minimal retrolisthesis of L3 on L4. There are some degenerative changes noted. Radiologist also interpreted the x-rays and agrees. Patient was advised of her findings. Patient was instructed to follow-up with her primary care physician in 5 to 7 days. Patient was instructed to take Tylenol as needed for pain. Patient understood and was agreeable with the plan. All questions were answered. Radiography Diagnostic Testing: Clinical Impression(s) from Imaging Studies Brain CT 02/17/22 07:57 IMPRESSION: Normal unenhanced CT scan of the brain. Electronically Signed: Brady Moreira MD at 8:33 EDT , Lumbar Spine X-Ray 02/17/22 08:27 IMPRESSION: Degenerative changes of the spine, as detailed above. Mild levoscoliosis. Minimal retrolisthesis of L3 on L4. Electronically Signed: Brady Moreira MD at 8:41 EDT , Discharge Plan Triage Chief Complaint: Fall ED Provider: Pj Ott Dx/Rx/DC Orders Clinical Impression: Closed head injury, Lumbar contusion Instructions: ED Back Contusion, ED Head Injury (Adult) Prescriptions: No Action pantoprazole 40 mg tablet,delayed release (DR/EC) 40 mg PO DAILY Qty: 90 RF: 2 amlodipine 5 mg tablet 5 mg PO DAILY RF: 0 rivaroxaban 20 mg tablet 20 mg PO DAILY RF: 0 docusate sodium 100 mg capsule 100 mg PO DAILY RF: 0 Primary Care Provider: Kenyon Thompson Referrals: Kenyon Thompson, [Primary Care Provider] - 1-2 Weeks Disposition Disposition: Home, Self Care
[2022-02-17 09:20] VITALS: BP 143/85; PULSE 66; RESP 14; O2SAT 96
== END 2022-02-17 09:27 | disposition home or self-care (01) ==
PROVIDERS: Emergency Provider Emergency Medicine; PCP Family Medicine; Visit Provider Emergency Medicine
DX: S09.90XA Unspecified injury of head, initial encounter (principal); J42 Unspecified chronic bronchitis; S30.0XXA Contusion of lower back and pelvis, initial encounter; M51.26 Other intervertebral disc displacement, lumbar region; I10 Essential (primary) hypertension; W18.30XA Fall on same level, unspecified, initial encounter; K21.9 Gastro-esophageal reflux disease without esophagitis; Z87.442 Personal history of urinary calculi
CPT/HCPCS: 70450; 72100; 99283; A4216

== ENCOUNTER 2022-03-13 07:47 | Emergency (ER) | payer OTHER, SELFPAY ==
[2022-03-13] VITALS (8 sets, daily range): BP systolic 145–156; BP diastolic 65–94; PULSE 83–97; RESP 14–18; TEMP 37.6; O2SAT 94–95; BMI 43.5
--- NOTE | 2022-03-13 08:14 | CT_ITS ---
STUDY: CT BRAIN WITHOUT CONTRAST REASON FOR EXAM: Female, 61 years old. Headache, recent aneurysms coiled stented RADIATION DOSAGE (If Supplied By Facility): CTDIvol = ( 44.99 ) mGy, DLP = ( 796.11 ) mGycm TECHNIQUE: Transaxial CT imaging of the brain was performed without administration of intravenous contrast material. Individualized dose optimization techniques were used for this CT. COMPARISON: Comparison is made with prior examination dated 02/17/2022. FINDINGS: Normal soft tissue structures. Normal calvarium. Normal size ventricles and extra-axial spaces for the patient''s age. Normal white matter tracts of the cerebral hemispheres. Normal basal ganglia and thalami. Normal brainstem. Normal cerebellum. There is no intracranial hemorrhage. There are no findings of an acute ischemic infarction. Metallic artifact from a aneurysmal coiling device in the region of the basilar tip. Normal visualized paranasal sinuses. CT/Brain/Head without Contrast IMPRESSION: 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 No acute abnormality is seen. Electronically Signed: Brady Moreira MD at 8:54 EDT ,
--- NOTE | 2022-03-13 08:15 | EDS_ITS ---
HPI History of Present Illness Chief Complaint: Headache Informant: patient Onset/Context/Timing Onset: Days (2) Context: Activity (since surgery) Timing: Continuous Quality -Headache: Positive for Throbbing Location: entire head, worst in the back Current Severity: Severe Maximum Severity: Severe Worsened by: light Relieved by: nothing Associated Symptoms/Injury Associated Symptoms: Positive for Nausea, Visual Changes (visual disturbance all visual hobson static electricity) and Photophobia; Negative for Vomiting, Numbness and Tingling Injury - ROBERTSON: Negative for Direct Trauma, Fall and Assault Narrative Narrative: Patient had 2 brain aneurysms diagnosed, referred to [facility], 2 days ago she had one of them stented and one of them coiled. She has had a headache ever since the procedure, she states they knew about her having this headache there. She states it is severe now she has developed worsening and is extremely nauseated. No vomiting. No peripheral neurologic symptoms. Some photophobia, some visual disturbance that is not limited to just 1 visual field, no visual field losses, no other symptoms. No neck stiffness. No confusion. Patient feels very poorly because of the nausea and has been giving 1-2 word answers to all questions, basically keeping it limited because she feels very poorly. [facility] Medical History (Updated 03/13/22 @ 13:[address] Casimiro Galvez MD) Back problem Chest pain Chronic bronchitis Chronic headaches Diarrhea Encounter for blood transfusion Fatigue Frequent UTI Gastrointestinal complaints GERD (gastroesophageal reflux disease) Hives HTN (hypertension) Hx of blood clots IBS (irritable bowel syndrome) Incontinence Kidney stones Knee pain Seasonal allergies Home Medications pantoprazole 40 mg tablet,delayed release 40 mg PO DAILY #90 tab 06/26/21 [Rx Last Taken Unknown] amlodipine 5 mg tablet 5 mg PO DAILY tab 01/20/22 [History Last Taken Unknown] docusate sodium 100 mg capsule 100 mg PO DAILY cap 01/20/22 [History Last Taken Unknown] rivaroxaban 20 mg tablet 20 mg PO DAILY tab 01/20/22 [History Last Taken Unknown] methylprednisolone [Medrol (Nhan)] 4 mg PO DAILY #21 tab 03/13/22 [Rx Last Taken Unknown] metoclopramide HCl 10 mg PO Q6H PRN #20 tab 03/13/22 [Rx Last Taken Unknown] Allergy/AdvReac Type Severity Reaction Status Date / Time codeine Allergy Itching Verified 03/13/22 07:56 latex Allergy Rash Verified 03/13/22 07:56 tramadol Allergy Hives Verified 03/13/22 07:56 prochlorperazine AdvReac Unknown Other Verified 03/13/22 07:56 [From Compazine] lactose AdvReac Nausea/Vom/ Verified 03/13/22 07:56 Diarrhea morphine AdvReac PT UNSURE Verified 03/13/22 07:56 OF REACTION Family History Father Alcoholism Anxiety Depressed CVA (cerebral vascular accident) Lung cancer Mother Heart disease Hypertension Grandmother Alcoholism Sister Liver disease Alcoholism Sister Mental disorder Aunt Breast cancer Surgical History History of cholecystectomy History of extraction of renal calculus History of fracture of right ankle History of hysterectomy History of torn meniscus of left knee Social History Smoking Status: Never smoker alcohol intake: never substance use type: does not use what type of physical activity do you participate in: none ROS ROS ED Constitutional Constitutional ED: Reports fever(s) and subjective; Denies chills Eyes Eyes: Reports blurry vision; Denies diplopia ENT ENT ED: Denies ear pain or sore throat Cardiovascular Cardiovascular: Denies chest pain or palpitations Respiratory/Chest Respiratory/Chest: Denies cough or dyspnea Gastrointestinal Gastrointestinal: Reports nausea; Denies abdominal pain, diarrhea or vomiting Genitourinary Genitourinary ED: Denies dysuria or urinary frequency Musculoskeletal Musculoskeletal: Denies back pain, difficulty walking, extremity pain, myalgias or neck pain Integumentary Denies abscess or rash Neurologic Neurologic: Reports headache(s); Denies paresthesias or weakness EXAM Physical Exam Const Vital Signs: 03/13/22 07:48 03/13/22 07:50 03/13/22 10:37 Temperature 99.6 F H 99.6 F H Temperature Source Temporal Temporal Pulse Rate 97 97 83 Respiratory Rate 18 18 14 Blood Pressure 147/92 H 147/92 H 146/76 H Blood Pressure Mean 110 110 99 Pulse Ox 94 94 95 Oxygen Delivery Method Room Air Room Air Room Air 03/13/22 11:19 03/13/22 12:00 03/13/22 13:45 Temperature Temperature Source Pulse Rate Respiratory Rate 17 Blood Pressure 152/73 H 150/65 H 156/79 H Blood Pressure Mean 99 93 104 Pulse Ox 95 Oxygen Delivery Method Room Air 03/13/22 13:47 03/13/22 14:11 Temperature Temperature Source Pulse Rate 84 Respiratory Rate 17 Blood Pressure 156/79 H 145/94 H Blood Pressure Mean 111 Pulse Ox 95 Oxygen Delivery Method Positive obese Constitutional Narrative: Appears malaised, keenly alert Nutritional Appearance: obese HEENT Reports normocephalic and moist mucous membranes atraumatic Eyes PERRL, EOMs intact bilaterally and conjunctivae normal Eyes Narrative: Mild photophobia Neck no lymphadenopathy, supple and no meningeal signs Resp normal respiratory effort and clear to auscultation bilaterally Cardio regular rate, regular rhythm and no murmurs Rate: Negative for tachycardic GI non-tender and non-distended Palpation: soft Extremity normal to inspection and full ROM Extremity Narrative: Right groin puncture dressing intact, no bleeding, nontender, no pulsatile mass. Intact distal DP pulse. Neuro oriented x3 and CN's II-XII intact bilaterally Sensorium / Orientation: awake and alert Speech: speech normal Gait (Neuro): normal gait Motor Exam: strength 5/5 throughout Psych mental status grossly normal Skin Lesions: no lesions Rashes: no rashes MDM MDM MDM Narrative Medical decision making narrative: Zofran ODT was ordered for her severe nausea and a stat head CT. This was negative for anything acute. Patient had a low- grade temperature here of 99.6, she was not experiencing fevers at home. For this reason further work-up was obtained. She was given Reglan 5 mg IV, she was here for a while prior to that because she was very difficult stick and IV access was difficult. After receiving the Reglan, her nausea and headache are much better and almost completely gone, she feels much better overall. I also had her take her amlodipine to help with any potential vasospasm which could be contributing to the headache due to the coiling and stenting of the arteries in her brain. She has a mild leukocytosis of 14.9, rest of the work-up is unremarkable. I performed a rapid COVID, it is negative. At this time I see no indication for her needing to be transferred to [facility], the patient is feeling better and would like to leave and I think it is reasonable to discharge her home with close outpatient follow-up. Will prescribe her some Reglan to use as needed if she needs it and advised to be sure and continue taking the medications she is on. I did discuss with her neurosurgeon Dr. Mel Ariza, she agrees with discharging the patient home with close outpatient follow-up and advises steroids which after discussing, we decided to do Decadron 10 mg here and Medrol Dosepak that she can start tomorrow. When asked if she had a history of migraine she states no but apparently this diagnosis is in her chart from another date/encounter, and Dr. Ariza mention that she had a history of migraines as well. I mention this because her symptoms were very similar to migraine and responded to migraine medication very well. If these are migraines, the steroids could help prevent recurrent migraines as well so would offer some benefit. Lab Data Attestation: I reviewed the patient's lab results. Labs: Laboratory Results - last 24 hr 03/13/22 03/13/22 03/13/22 11:15 11:15 13:21 WBC 14.9 H RBC 4.53 Hgb 12.5 Hct 39.9 MCV 88.1 MCH 27.6 MCHC 31.3 L RDW Std Deviation 44.3 H RDW Coeff of Michel 13.7 Plt Count 216 MPV 10.9 Immature Gran % (Auto) 0.400 Neut % (Auto) 81.1 H Lymph % (Auto) 10.5 L [place] % (Auto) 7.3 Eos % (Auto) 0.4 Baso % (Auto) 0.3 Absolute Neuts (auto) 12.1 H Absolute Lymphs (auto) 1.57 Nucleated RBC % 0 Sodium 137 Potassium 4.0 Chloride 103 Carbon Dioxide 28.0 Anion Gap 6 BUN 16 Creatinine 0.98 Estim Creat Clear Calc 55.01 Est GFR (MDRD) Af Amer 74 Est GFR (MDRD) Non-Af 61 BUN/Creatinine Ratio 16.3 Glucose 100 Calcium 8.5 Total Bilirubin 0.30 AST 12 L ALT 25 Alkaline Phosphatase 74 Troponin I High Sens 6 Total Protein 6.8 Albumin 3.5 Globulin 3.3 Albumin/Globulin Ratio 1.1 Urine Color Straw Urine Clarity Clear Urine pH 7.0 Ur Specific [place] 1.010 Urine Protein Negative Urine Glucose (UA) Normal Urine Ketones Negative Urine Occult Blood Negative Urine Nitrite Negative Urine Bilirubin Negative Urine Urobilinogen Normal Ur Leukocyte Esterase Negative Urine RBC 0 SEEN Urine WBC 0 SEEN Ur Squamous Epith Cells 0-5 SEEN Urine Bacteria 0 SEEN Urine Mucus 0 SEEN Radiography Diagnostic Testing: Clinical Impression(s) from Imaging Studies Brain CT 03/13/22 08:14 IMPRESSION: 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 No acute abnormality is seen. Electronically Signed: Brady Moreira MD at 8:54 EDT , Discharge Plan Triage Chief Complaint: Headache ED Provider: Casimiro Galvez Dx/Rx/DC Orders Clinical Impression: Acute headache Instructions: ED Headache Unspecified Prescriptions: New metoclopramide HCl [metoclopramide HCl] 10 MG tablet 10 mg PO Q6H PRN (Reason: nausea or headache) Qty: 20 RF: 0 methylprednisolone [Medrol (Nhan)] 4 mg tablets,dose pack 4 mg PO DAILY Qty: 21 RF: 0 No Action pantoprazole 40 mg tablet,delayed release (DR/EC) 40 mg PO DAILY Qty: 90 RF: 2 amlodipine 5 mg tablet 5 mg PO DAILY RF: 0 rivaroxaban 20 mg tablet 20 mg PO DAILY RF: 0 docusate sodium 100 mg capsule 100 mg PO DAILY RF: 0 Primary Care Provider: Kenyon Thompson Referrals: surgeon, your [Other] - As soon as possible (and/or your primary care doctor) Kenyon Thompson, DO [Primary Care Provider] - Disposition Disposition: Home, Self Care
[2022-03-13] MEDS: Ondansetron ODT 4 MG Tablet 8 MG PO (08:21)
[2022-03-13] MEDS: Metoclopramide 10 MG/2 ML Vial 5 MG IV ×2 (11:19→13:58)
[2022-03-13 11:29] LABS: Absolute Lymphocyte Count 1.57 X10^3/uL (0.83-4.51); Absolute Neutrophil Count 12.1 X10^3/uL (2.0-7.7); Basophil# 0.04 X10^3/uL; Basophil% 0.3 % (0-1); Eosinophil# 0.06 X10^3/uL; Eosinophils% 0.4 % (0-5); Hematocrit 39.9 % (37-47); Hemoglobin 12.5 g/dL (12.0-15.0); Lymphocyte # 1.57 X10^3/ul (0.83-4.51); Lymphocyte % 10.5 % (19-41); Mean Corp Hgb Conc 31.3 g/dL (32-36); Mean Corpuscular Hgb 27.6 pg (27.0-32.0); Mean Corpuscular Volume 88.1 fL (81-99); Mean Platelet Vol. 10.9 fl (6.2-12.0); Monocyte# 1.09 X10^3/uL; Monocyte% 7.3 % (0-10); NRBC Flagged by Analyzer 0 % (0-5); Neutrophil # 12.08 X10^3/uL (2.7-7.7); Neutrophil % 81.1 % (47-70); Platelet Count 216 K/mm3 (150-450); RBC Distribution Width CV 13.7 % (11.6-14.6); RBC Distribution Width SD 44.3 fl (35.1-43.9); Red Blood Count 4.53 M/mm3 (4.2-5.4); White Blood Count 14.9 K/mm3 (4.4-11.0)
--- NOTE | 2022-03-13 11:39 | ED.RN ---
per dr. bear have pt take one of her home amolodipine pills. pt took 5mg with water.
[2022-03-13 11:45] LABS: Albumin, Serum 3.5 g/dL (3.2-5.0); BUN 16 mg/dL (7-18); BUN/Creat Ratio 16.3 RATIO (10-20); Creatinine, Serum 0.98 mg/dL (0.55-1.02); EST Glomerular Filtration Rate 61 mL/min (>60); Est Glom Filt Rate - Afr Amer 74 mL/min (>60); Estimated Creatinine Clearance 55.01 ml/min; Glucose 100 mg/dL (74-106); Protein, Total 6.8 g/dL (6.4-8.2)
[2022-03-13 11:46] LABS: ALB/GLOB Ratio 1.1 RATIO (0.9-2.4); AST(SGOT) 12 U/L (15-37); Alanine Aminotransfer ALT/SGPT 25 U/L (13-56); Alkaline Phosphatase 74 U/L (45-117); Anion Gap 6 (5-15); Calcium,Total 8.5 mg/dL (8.5-10.1); Chloride 103 mmol/L (98-107); Globulin 3.3 g/dL (2.2-4.2); Sodium Level 137 mmol/L (136-145); Troponin-I HS 6 pg/mL (3.0-54.0)
[2022-03-13 13:25] LABS: Bacteria 0 SEEN /hpf (None Seen); Mucous, Urine 0 SEEN /hpf (<or=2+); Red Blood Cells-Urine 0 SEEN /hpf (0-5); White Blood Cells 0 SEEN /hpf (0-5)
[2022-03-13 13:29] LABS: Color, Urine Straw (Yellow); Glucose, Dipstick Normal (Normal); Ketone-Dipstick Negative (Negative); Leukocyte Esterase-Dipstick Negative /ul (Negative); Nitrite-Dipstick Negative (Negative); Occult Blood-Urine Negative /ul (Negative); Protein-Dipstick Negative (Negative); Urine Bilirubin Dipstick Negative (Negative); Urine Clarity Clear (Clear); Urine Urobilinogen Normal (Normal)
[2022-03-13 14:17] LABS: Squamous Epithelial Cells - UA 0-5 SEEN /hpf (5-10)
[2022-03-13] MEDS: dexAMETHasone 10 MG/ML Vial IV (14:23)
== END 2022-03-13 14:56 | disposition home or self-care (01) ==
PROVIDERS: Emergency Provider Emergency Medicine; PCP Family Medicine; Visit Provider Emergency Medicine
DX: R51.9 Headache, unspecified (principal); R11.0 Nausea; I10 Essential (primary) hypertension; R50.9 Fever, unspecified
CPT/HCPCS: 70450; 80053; 81001; 84484; 85025; 87040; 87428; 96361; 96374; 96375; 96376; 99282

== ENCOUNTER 2022-03-19 19:42 | Emergency (ER) | payer OTHER, SELFPAY ==
[2022-03-19 19:44] VITALS: BP 154/88; PULSE 79; RESP 18; TEMP 36.4; O2SAT 97; BMI 43.5
--- NOTE | 2022-03-19 20:37 | EKG12_ITS ---
Test Reason : DYSRHYTHMIA Blood Pressure : / mmHG Vent. Rate : 080 BPM Atrial Rate : 080 BPM P-R Int : 170 ms QRS Dur : 084 ms QT Int : 402 ms P-R-T Axes : 043 023 036 degrees QTc Int : 463 ms Normal sinus rhythm Low voltage QRS (Limb Leads) Confirmed by ANGE ESPINAL, LILY ([id number]), newspaper copy editor DEREJE HARRELL ([id number]) on 03/21/2022 9:11:48 AM Referred By: ROSLYN Confirmed By:LILY CASSIDY MD
--- NOTE | 2022-03-19 20:38 | EDS_ITS ---
HPI History of Present Illness Chief Complaint: Nausea/Vomiting Narrative Narrative: 61-year-old female presenting with headache. She states this started about 430 after she saw her primary care doctor. She states he has associated symptoms of nausea and vomiting. She has light sensitivity. She has a history of migraine but also has history of aneurysms. She had 1 coiled and 1 stented on 03/11/[address] Mel Ariza at [facility]. She sees neurosurgery at an outside facility. Patient states that she has been vomiting since that time. He has no fever or chills. No neck pain. She denies chest pain, shortness of breath. She states she took her last dose of her methylprednisolone today. [facility] Medical History Back problem Chest pain Chronic bronchitis Chronic headaches Diarrhea Encounter for blood transfusion Fatigue Frequent UTI Gastrointestinal complaints GERD (gastroesophageal reflux disease) Hives HTN (hypertension) Hx of blood clots IBS (irritable bowel syndrome) Incontinence Kidney stones Knee pain Seasonal allergies Home Medications docusate sodium 100 mg capsule 100 mg PO DAILY constipation 01/20/22 [History Last Taken Unknown] rivaroxaban 20 mg tablet 20 mg PO DAILY blood clot 01/20/22 [History Last Taken Unknown] methylprednisolone 4 mg tablets in a dose pack (Medrol (Nhan)) 4 mg PO DAILY #21 tabs 03/13/22 [Rx Last Taken Unknown] metoclopramide HCl 10 mg tablet 10 mg PO Q6H PRN nausea or headache #20 tabs 03/13/22 [Rx Last Taken Unknown] amlodipine 5 mg tablet 5 mg PO DAILY blood pressure #90 tabs 03/19/22 [Rx Last Taken Unknown] aspirin 81 mg chewable tablet 81 mg PO DAILY 03/19/22 [History Last Taken Unknown] pantoprazole 40 mg tablet,delayed release 40 mg PO DAILY gerd #90 tabs 03/19/22 [Rx Last Taken Unknown] ticagrelor 90 mg tablet (Brilinta) 90 mg PO BID 03/19/22 [History Last Taken Unknown] triamcinolone acetonide 0.1 % topical cream 1 applic topical BID #15 grams 03/19/22 [Rx Last Taken Unknown] Allergy/AdvReac Type Severity Reaction Status Date / Time codeine Allergy Itching Verified 03/19/22 16:39 latex Allergy Rash Verified 03/19/22 16:39 tramadol Allergy Hives Verified 03/19/22 16:39 prochlorperazine AdvReac Unknown Other Verified 03/19/22 16:39 [From Compazine] lactose AdvReac Nausea/Vom/ Verified 03/19/22 16:39 Diarrhea morphine AdvReac PT UNSURE Verified 03/19/22 16:39 OF REACTION Family History Father Alcoholism Anxiety Depressed CVA (cerebral vascular accident) Lung cancer Mother Heart disease Hypertension Grandmother Alcoholism Sister Liver disease Alcoholism Sister Mental disorder Aunt Breast cancer Surgical History History of brain surgery History of cholecystectomy History of extraction of renal calculus History of fracture of right ankle History of hysterectomy History of torn meniscus of left knee Social History Smoking Status: Never smoker alcohol intake: never substance use type: does not use what type of physical activity do you participate in: none ROS ROS ED Constitutional Constitutional ED: Denies chills or fever(s) Eyes Eyes: Denies change in vision or diplopia ENT ENT ED: Denies rhinorrhea Cardiovascular Cardiovascular: Denies chest pain or palpitations Respiratory/Chest Respiratory/Chest: Denies cough or dyspnea Gastrointestinal Gastrointestinal: Reports nausea and vomiting Genitourinary Genitourinary ED: Denies dysuria or hematuria Musculoskeletal Musculoskeletal: Denies arthralgias, back pain or neck pain Integumentary Denies abscess Neurologic Neurologic: Reports headache(s); Denies paresthesias or weakness Psychiatric Psychiatric: Denies anxiety or depression EXAM Physical Exam Const Vital Signs: 03/19/22 19:44 03/19/22 22:00 03/19/22 23:48 Temperature 97.6 F L 96 F L Temperature Source Temporal Core Pulse Rate 79 88 69 Respiratory Rate 18 14 19 H Respiratory Effort Respiratory Depth Respiratory Pattern Blood Pressure 154/88 H 135/78 H 174/74 H Blood Pressure Mean 110 97 107 Pulse Ox 97 96 100 Oxygen Delivery Method Room Air Room Air 03/19/22 23:49 Temperature Temperature Source Pulse Rate Respiratory Rate Respiratory Effort Agonal Respiratory Depth Shallow Respiratory Pattern Bradypnea Blood Pressure Blood Pressure Mean Pulse Ox Oxygen Delivery Method Positive well nourished General Appearance ED: NAD; Negative for pallor HEENT Reports normocephalic and moist mucous membranes atraumatic; Negative for temporal artery tenderness Eyes PERRL and EOMs intact bilaterally General Eye ED: Negative for pale conjunctiva or scleral icterus Neck no lymphadenopathy, supple and no meningeal signs Resp normal respiratory effort Cardio regular rate and regular rhythm GI Auscultation: normoactive bowel sounds Neuro oriented x3, CN's II-XII intact bilaterally and no sensory deficits noted Sensorium / Orientation: awake, alert, oriented to person, oriented to place and oriented to time Speech: speech normal Psych mental status grossly normal Skin General Skin Exam: Negative for jaundice or pallor MDM MDM MDM Narrative Medical decision making narrative: Patient presenting with headache. She has a history of aneurysms one was: 1 was stented this is about the seventh of this month. Patient is already been seen for this for similar headaches here at [place] and was treated last time with a migraine cocktail and this did improve her pain. Today she was given Reglan and Benadryl and while she was at CT she started vomiting. She was given Phenergan for this and was able to complete the CT however after the CT scan she became more confused. Eventually she started to not communicate and then she stopped talking altogether. She stopped responding to pain or voice. She has no startle response. She has upgoing Babinski's. She appears to be decerebrate posturing. I was concerned is possibly seizing or maybe she possibly does have some sort of head bleed which occurred after she was vomiting. She was given a gram of Keppra and sent back to CT for CTA head and neck. Blood work obtained shows a CBC with a leukocytosis of 12.4. Hemoglobin stable at 11.9. Platelets 263. Renal function and electrolytes within normal limits. LFTs are within normal limits. High-sensitivity troponin is less than 3. Chest x-ray on my interpretation shows no acute cardiopulmonary process over the radiologist read just as left lower lobe pneumonia. There is no respiratory symptoms. She is not hypoxic, febrile. CT brain is negative for acute intracranial findings however the CTA is pending. Urinalysis is negative for infection. At this point I feel I need to intubate the patient and I counseled the patient's of this. She does not appear to be impacting her airway. Patient intubated with RSI on first pass using a 7 and half ET tube at 23 at the lip. Good color change capnography and confirmed by chest x-ray to be in place. Patient started on propofol drip. Per Dr. Aaliyah urbina at [facility] he wished her to be life flighted to [facility]. [facility] was called. Patient will be transported there. There has been no deterioration since that time. Impression: 1. Headache 2. Encephalopathy 3. Nausea/vomiting Lab Data Attestation: I reviewed the patient's lab results. Labs: Laboratory Results - last 24 hr 03/19/22 03/19/22 03/19/22 20:55 20:55 22:50 WBC 12.4 H RBC 4.23 Hgb 11.9 L Hct 36.3 L MCV 85.8 MCH 28.1 MCHC 32.8 RDW Std Deviation 43.4 RDW Coeff of Michel 13.9 Plt Count 263 MPV 10.1 Immature Gran % (Auto) 2.200 H Neut % (Auto) 65.6 Lymph % (Auto) 20.4 [place] % (Auto) 10.3 H Eos % (Auto) 1.2 Baso % (Auto) 0.3 Absolute Neuts (auto) 8.1 H Absolute Lymphs (auto) 2.52 Nucleated RBC % 0 Sodium 143 Potassium 3.5 Chloride 112 H Carbon Dioxide 24.0 Anion Gap 7 BUN 21 H Creatinine 0.84 Estim Creat Clear Calc 64.17 Est GFR (MDRD) Af Amer 88 Est GFR (MDRD) Non-Af 73 BUN/Creatinine Ratio 25.0 H Glucose 99 Calcium 7.7 L Total Bilirubin 0.60 AST 8 L ALT 18 Alkaline Phosphatase 68 Troponin I High Sens < 3 L Total Protein 6.0 L Albumin 3.0 L Globulin 3.0 Albumin/Globulin Ratio 1.0 Urine Color Yellow Urine Clarity Clear Urine pH 6.0 Ur Specific [place] 1.025 Urine Protein 15 H Urine Glucose (UA) Normal Urine Ketones Negative Urine Occult Blood 10 H Urine Nitrite Negative Urine Bilirubin Negative Urine Urobilinogen Normal Ur Leukocyte Esterase 25 H Urine RBC 0-5 SEEN Urine WBC 0-5 SEEN Ur Squamous Epith Cells 0-5 SEEN Urine Bacteria 1+ Hyaline Casts 5-10 SEEN Urine Mucus 1+ POC Glucose 03/19/22 23:11 WBC RBC Hgb Hct MCV MCH MCHC RDW Std Deviation RDW Coeff of Michel Plt Count MPV Immature Gran % (Auto) Neut % (Auto) Lymph % (Auto) [place] % (Auto) Eos % (Auto) Baso % (Auto) Absolute Neuts (auto) Absolute Lymphs (auto) Nucleated RBC % Sodium Potassium Chloride Carbon Dioxide Anion Gap BUN Creatinine Estim Creat Clear Calc Est GFR (MDRD) Af Amer Est GFR (MDRD) Non-Af BUN/Creatinine Ratio Glucose Calcium Total Bilirubin AST ALT Alkaline Phosphatase Troponin I High Sens Total Protein Albumin Globulin Albumin/Globulin Ratio Urine Color Urine Clarity Urine pH Ur Specific [place] Urine Protein Urine Glucose (UA) Urine Ketones Urine Occult Blood Urine Nitrite Urine Bilirubin Urine Urobilinogen Ur Leukocyte Esterase Urine RBC Urine WBC Ur Squamous Epith Cells Urine Bacteria Hyaline Casts Urine Mucus POC Glucose 113 H Radiography Diagnostic Testing: Clinical Impression(s) from Imaging Studies Brain CT 03/19/22 21:18 IMPRESSION: No acute intracranial pathology. Electronically Signed: Erik Henderson MD at 21:39 EDT , Chest X-Ray 03/19/22 21:25 IMPRESSION: Left lower lobe pneumonia. Follow to resolution. Electronically Signed: Erik Henderson MD at 21:58 EDT , Critical Care Time Critical Care Time: Yes Critical care time (excluding procedures): 30-74 minutes (50), Discussing w/Patient &/or Family/[employer] Exchange Wireless Manager, Discussing w/Consultants, Arranging Admission or Transfer and Performing Direct Patient Care at Bedside Discharge Plan Triage Chief Complaint: Nausea/Vomiting ED Provider: Melecio Gunn Dx/Rx/DC Orders Prescriptions: No Action rivaroxaban 20 mg tablet 20 mg PO DAILY Rx Instructions: aspirin 81 mg tablet,chewable 81 mg PO DAILY amlodipine 5 mg tablet 5 mg PO DAILY Qty: 90 1RF pantoprazole 40 mg tablet,delayed release (DR/EC) 40 mg PO DAILY Qty: 90 2RF triamcinolone acetonide 0.1 % cream 1 applic topical BID Qty: 15 0RF docusate sodium 100 mg capsule 100 mg PO DAILY metoclopramide HCl [metoclopramide HCl] 10 MG tablet 10 mg PO Q6H PRN (Reason: nausea or headache) Qty: 20 0RF methylprednisolone [Medrol (Nhan)] 4 mg tablets,dose pack 4 mg PO DAILY Qty: 21 0RF Rx Instructions: start 03/14 Brilinta 90 mg Tablet 90 mg PO BID Primary Care Provider: Kenyon Thompson Referrals: Kenyon Thompson, [Primary Care Provider] -
[2022-03-19] MEDS: 0.9% Normal Saline 1,000 ML 999 ML IV (20:47)
[2022-03-19] MEDS: DiphenhydrAMINE 50 MG/ML Syringe 25 MG IV (21:05)
[2022-03-19] MEDS: Metoclopramide 10 MG/2 ML Vial IV (21:05)
[2022-03-19 21:10] LABS: Absolute Lymphocyte Count 2.52 X10^3/uL (0.83-4.51); Absolute Neutrophil Count 8.1 X10^3/uL (2.0-7.7); Basophil# 0.04 X10^3/uL; Basophil% 0.3 % (0-1); Eosinophil# 0.15 X10^3/uL; Eosinophils% 1.2 % (0-5); Hematocrit 36.3 % (37-47); Hemoglobin 11.9 g/dL (12.0-15.0); Lymphocyte # 2.52 X10^3/ul (0.83-4.51); Lymphocyte % 20.4 % (19-41); Mean Corp Hgb Conc 32.8 g/dL (32-36); Mean Corpuscular Hgb 28.1 pg (27.0-32.0); Mean Corpuscular Volume 85.8 fL (81-99); Mean Platelet Vol. 10.1 fl (6.2-12.0); Monocyte# 1.27 X10^3/uL; Monocyte% 10.3 % (0-10); NRBC Flagged by Analyzer 0 % (0-5); Neutrophil # 8.12 X10^3/uL (2.7-7.7); Neutrophil % 65.6 % (47-70); Platelet Count 263 K/mm3 (150-450); RBC Distribution Width CV 13.9 % (11.6-14.6); RBC Distribution Width SD 43.4 fl (35.1-43.9); Red Blood Count 4.23 M/mm3 (4.2-5.4); White Blood Count 12.4 K/mm3 (4.4-11.0)
--- NOTE | 2022-03-19 21:18 | CT_ITS ---
EXAM: CT HEAD WITHOUT INTRAVENOUS CONTRAST CLINICAL INDICATION: headache TECHNIQUE: Multiple axial images were obtained of the head without intravenous contrast. CTDIvol = ( 44.99 ) mGy, DLP = ( 812.98 ) mGycm This CT exam was performed using one or more of the following dose reduction techniques: automated exposure control, adjustment of the mA and/or kV according to patient size, and/or use of iterative reconstruction technique. This report was created using [employer] report generation technology. COMPARISON: 03/13/2022. FINDINGS: BRAIN AND EXTRA-AXIAL SPACES: Unremarkable. No intra- or extra-axial hemorrhage. No evidence of acute infarct. No intracranial mass or mass effect. There is preservation of the crews/white matter interface. Posterior fossa structures are unremarkable. Ventricles are appropriate for age. No hydrocephalus. Basal cisterns are patent. BONES/JOINTS: Unremarkable. No discrete lytic or blastic abnormalities. VASCULATURE: Evidence of prior coiling of basilar tip aneurysm. Mild diffuse parenchymal atrophy. SINUSES: Unremarkable as visualized. Clear. MASTOID AIR CELLS: Unremarkable. Clear. ORBITS: Visualized globes, extraocular muscles, optic nerves and retrobulbar fat appear unremarkable. CT/Brain/Head without Contrast IMPRESSION: No acute intracranial pathology. Electronically Signed: Erik Henderson MD at 21:39 EDT ,
[2022-03-19] MEDS: proMETHazine 25 MG/ML Syringe 12.5 MG IM (21:24)
--- NOTE | 2022-03-19 21:25 | RAD_ITS ---
EXAM: XR CHEST, 1 VIEW CLINICAL INDICATION: headache TECHNIQUE: Frontal view of the chest. This report was created using [employer] report generation technology. COMPARISON: None. FINDINGS: LUNGS AND PLEURAL SPACES: Dense airspace disease appearing the peripheral aspect of the left hemidiaphragm. No pneumothorax. No effusion. HEART: Unremarkable. Cardiac silhouette not enlarged. MEDIASTINUM: Central airways and mediastinal contour are unremarkable. BONES/JOINTS: Degenerative changes of the spine and the acromioclavicular joints. SOFT TISSUES: Unremarkable. RAD/Chest 1 View (Portable) IMPRESSION: Left lower lobe pneumonia. Follow to resolution. Electronically Signed: Erik Henderson MD at 21:58 EDT ,
[2022-03-19 21:27] LABS: AST(SGOT) 8 U/L (15-37); Alanine Aminotransfer ALT/SGPT 18 U/L (13-56); Alkaline Phosphatase 68 U/L (45-117); Anion Gap 7 (5-15); BUN 21 mg/dL (7-18); Calcium,Total 7.7 mg/dL (8.5-10.1); Chloride 112 mmol/L (98-107); Creatinine, Serum 0.84 mg/dL (0.55-1.02); EST Glomerular Filtration Rate 73 mL/min (>60); Est Glom Filt Rate - Afr Amer 88 mL/min (>60); Estimated Creatinine Clearance 64.17 ml/min; Glucose 99 mg/dL (74-106); Potassium 3.5 mmol/L (3.5-5.1); Sodium Level 143 mmol/L (136-145); Troponin-I HS < 3 pg/mL (3.0-54.0)
[2022-03-19 22:00] VITALS: BP 135/78; PULSE 88; RESP 14; O2SAT 96
[2022-03-19] MEDS: 0.9% Normal Saline 1,000 ML 1000 ML IV (22:54)
[2022-03-19 23:01] LABS: Color, Urine Yellow (Yellow); Glucose, Dipstick Normal (Normal); Ketone-Dipstick Negative (Negative); Leukocyte Esterase-Dipstick 25 /ul (Negative); Nitrite-Dipstick Negative (Negative); Occult Blood-Urine 10 /ul (Negative); Protein-Dipstick 15 mg/dl (Negative); Specific Gravity, Urine 1.025 (1.002-1.030); Urine Bilirubin Dipstick Negative (Negative); Urine Clarity Clear (Clear); Urine Urobilinogen Normal (Normal)
--- NOTE | 2022-03-19 23:12 | CT_ITS ---
We are attempting to reach an attending provider to discuss findings. An addendum with communication details will be sent when the communication is complete. STUDY: CTA HEAD AND NECK WITH CONTRAST REASON FOR EXAM: Female, 61 years old patient with altered mental status RADIATION DOSAGE (If Supplied By Facility): CTDIvol = ( 28.84 ) mGy, DLP = ( 1668.50 ) mGycm TECHNIQUE: CT angiography was performed with a multi-detector CT scanner. Data acquisition was obtained from the skull base through the vertex following intravenous administration of 100 ml of ISOVUE 370. MIP images were reconstructed from the axial data set. Post-processing of the angiographic images was performed, with multiplanar reformation and 3D reconstruction. Individualized dose optimization techniques were used for this CT. COMPARISON: No relevant priors. FINDINGS: There appears to be decreased enhancement of the right petrous internal carotid artery suggesting possible thrombosis. The left petrous internal carotid has normal enhancement. There is calcified plaque formation of the right cavernous carotid artery, with a mild stenosis (less than 50%). There is calcified plaque formation of the left cavernous carotid artery, with a mild stenosis (less than 50%). Normal right A1 segments of the anterior cerebral artery. Normal left A1 segments of the anterior cerebral artery. Normal intact anterior communicating artery (ACOM). Normal bilateral A2 segments of the anterior cerebral arteries. There is irregularity of the right M1 and M2 branches with minimal luminal narrowing, suggesting atherosclerotic plaque formation, without an occlusion. There is irregularity of the left M1 and M2 branches with minimal luminal narrowing, suggesting atherosclerotic plaque formation, without an occlusion. There is non-visualization of the right posterior communicating artery (PCOM). There is non-visualization of the left posterior communicating artery (PCOM). There is limited visualization of the intradural vertebral arteries secondary to limited enhancement of these arteries in addition to beam hardening arising from two endovascular coil bundles. There is limited visualization of the basilar artery. Visualized bilateral superior cerebellar (SCA) arteries are normal. Normal bilateral P1, P2 and visualized P3 segments of the posterior cerebral arteries. There is no demonstrated aneurysm of the [place]. There is no demonstrated abnormality of the visualized brain. AORTIC ARCH: There is atherosclerotic calcific plaque formation of the aortic arch and great vessels arising from the aortic arch, without a hemodynamically significant stenosis. There is a bovine origin of the great vessels with a common origin of the brachiocephalic and left common carotid artery. Normal origin of the left subclavian artery. RIGHT CAROTID ARTERIES: Normal right common carotid artery (CCA). There is moderate atherosclerotic plaque formation with moderate narrowing of the right carotid bulb. There is moderate atherosclerotic plaque formation of the origin of the right internal carotid artery with an estimated stenosis of 50-69% stenosis. Normal visualized cervical portion of the right internal carotid artery. Normal origin of the right external carotid artery (ECA). LEFT CAROTID ARTERIES: Normal left common carotid artery (CCA). There is mild atherosclerotic plaque formation with minimal narrowing of the left carotid bulb. There is mild atherosclerotic plaque formation of the origin of the left internal carotid artery with less than 50% cross sectional diameter stenosis. Normal visualized cervical portion of the left internal carotid artery. Normal origin of the left external carotid artery (ECA). VERTEBRAL ARTERIES: There is limited visualization of proximal vertebral arteries secondary to patient motion. The vertebral arteries within the spinal canal foramina are patent. NECK ANATOMY: Lung apices have patchy groundglass attenuation and interstitial thickening suggesting pulmonary congestion. There is increased mediastinal fat. The thyroid has a grossly normal appearance. Visualized parotid and submandibular glands have a grossly normal appearance. Nasopharynx, oropharynx, hypopharynx and larynx have a grossly normal appearance. IMPRESSION: 1. Technically limited CTA due to limited enhancement and patient motion. 2. 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 3. Status post treatment of two posterior fossa aneurysms. 4. Hemodynamically significant stenosis of the origin of the right internal carotid artery. STUDY: CT BRAIN WITHOUT CONTRAST REASON FOR EXAM: Female, 61 years old patient with altered mental status RADIATION DOSAGE (If Supplied By Facility): CTDIvol = ( 28.84 ) mGy, DLP = ( 1668.50 ) mGycm TECHNIQUE: Transaxial CT imaging of the brain was performed without administration of intravenous contrast material. Multiplanar reformations are submitted for interpretation. Individualized dose optimization techniques were used for this CT. COMPARISON: No relevant priors. FINDINGS: Normal soft tissue structures. Normal calvarium. Normal size ventricles and extra-axial spaces for the patient''s age. Normal white matter tracts of the cerebral hemispheres. Normal basal ganglia and thalami. There is limited visualization of the brainstem secondary to beam hardening and streak artifact arising from 2 and in the subcortical bundles are secondary to endovascular treatment of 2 aneurysms. There is also some obscuration of anatomy of the cerebellum. Normal cerebellum. There is no intracranial hemorrhage. There is mild atherosclerotic calcification of the intracranial arteries. Normal visualized paranasal sinuses. CT/CTA Head AND Neck W/ Contrast IMPRESSION: 1. No CT evidence of acute intracranial hemorrhage. 2. Status post endovascular treatment of at least two posterior fossa intracranial aneurysms. Electronically Signed: Kavitha Santoro MD at 3:29 EDT ,
[2022-03-19 23:16] LABS: Bedside Glucose 113 mg/dL (74-106)
[2022-03-19 23:19] LABS: White Blood Cells 0-5 SEEN /hpf (0-5)
[2022-03-19 23:20] LABS: Bacteria 1+ /hpf (None Seen); Mucous, Urine 1+ /hpf (<or=2+); Red Blood Cells-Urine 0-5 SEEN /hpf (0-5); Squamous Epithelial Cells - UA 0-5 SEEN /hpf (5-10)
--- NOTE | 2022-03-19 23:20 | ED.RN ---
this nurse and nohemi rn in to straight cath pt., pt asleep. straight cath alerted dr. francois. at bedside pt. not responding to sternal rub, or ammonia cap. will withdraw from stimulus on feet. dr. francois orderes cta. pt taken to ct for repeat cta
[2022-03-19 23:21] LABS: Hyaline Cast 5-10 SEEN /lpf (0-5)
[2022-03-19 23:48] VITALS: BP 174/74; PULSE 69; RESP 19; TEMP 35.5; O2SAT 100
[2022-03-19] MEDS: Rocuronium Bromide 50 MG/5 ML Vial 40 MG IV (23:51)
[2022-03-19] MEDS: Etomidate 20 MG/10 ML Vial IV (23:51)
[2022-03-19] MEDS: Propofol 10MG/Ml 1,000 MG/100 ML Bottle 7.3 MG CONT INF (23:55)
[2022-03-20] MEDS: levETIRAcetam IV 1,000 MG/100 ML BAG 400 MG IV (00:04)
[2022-03-20 00:14] VITALS: BP 163/83; PULSE 96; RESP 18; TEMP 36.9; O2SAT 95
[2022-03-20 00:15] VITALS: BP 167/97; PULSE 107; RESP 25; TEMP 36.6; O2SAT 96
--- NOTE | 2022-03-20 00:21 | RAD_ITS ---
STUDY: X-RAY CHEST REASON FOR EXAM: Female, 61 years old. post intubation TECHNIQUE: AP portable. 11:57 PM. COMPARISON: 9:19 PM. FINDINGS: LINES/DEVICES: Tip of endotracheal tube is at the level of the clavicles, approximately 5 cm above the angelica. Tip of the nasogastric tube in the distal stomach. LUNGS: Low lung volumes. Minimal atelectasis at the left lung base. No consolidation. No pneumothorax. MEDIASTINUM: Unremarkable. CARDIAC SILHOUETTE: Not enlarged. BONES AND SOFT TISSUES: No acute abnormalities. RAD/Chest 1 View (Portable) IMPRESSION: Satisfactory ET tube position. Minimal basilar atelectasis. Electronically Signed: Vidhya Carrion MD at 1:07 EDT ,
[2022-03-20 00:26] LABS: Allen Test Positive; Base Excess -4 mmol/L (-2 to +2); Bicarbonate 21.8 mmol/L (22-26); Blood Gas Specimen Type ART; FI02 30; Mode AC; O2 Delivery Device Adult Vent; PEEP 5; PO2 72 mmHG (75-100); RR 14; SITE L Radial; SO2 94 % (95-99); Total Carbon Dioxide 23 mmol/L; Vt 450; pCO2 38.6 mmHg (35-45); pH 7.36 (7.35-7.45)
[2022-03-20 00:29] VITALS: RESP 14; RESP 16
== END 2022-03-20 00:46 | disposition short-term general hospital (02) ==
PROVIDERS: Emergency Provider Student in an Organized Health Care Education/Training Program; PCP Family Medicine; Visit Provider Student in an Organized Health Care Education/Training Program
DX: R51.9 Headache, unspecified (principal); J18.9 Pneumonia, unspecified organism; G93.40 Encephalopathy, unspecified; R41.0 Disorientation, unspecified; I10 Essential (primary) hypertension; R11.2 Nausea with vomiting, unspecified; K21.9 Gastro-esophageal reflux disease without esophagitis
CPT/HCPCS: 31500; 36600; 51702; 70450; 70496; 70498; 71045; 80053; 81001; 82803; 82962; 84484; 85025; 93005; 94002; 99251; 99285; P9612; Q9967; G0463